=== PATIENT | female | born 1940 | race Caucasian/White ===

== ENCOUNTER → 2016-07-24 | Outpatient (CLI) | payer OTHER, MEDICARE ==
[~2016-07-24] MED LIST: ANT25 PO; PROM25TA PO
--- NOTE | 2016-07-25 12:40 | MAMMOGRAPHY REPORT ---
BILATERAL DIGITAL SCREENING MAMMOGRAM WITH CAD: 07/24/2016 CLINICAL HISTORY: Routine screening. Patient has no complaints. TECHNIQUE: Bilateral CC and MLO views were obtained. Current study was also evaluated with a Comput er Aided Detection (CAD) system. COMPARISON: Comparison is made to exams dated: 07/20/2015 mammogram, 07/14/2013 mammogram, 07/15/2014 mammogram, 06/29/2011 mammogram, and 06/14/2010 mammogram - [facility]. BREAST COMPOSITION: The tissue of both breasts is almost entirely fatty. FINDINGS: There are scattered benign coarse and rodlike, probable secretory calcifications througho ut the breasts. Stable nodularity within the anterior right breast. No new suspicious mass, sohail ectural distortion or cluster of microcalcifications is seen. IMPRESSION: ACR BI-RADS CATEGORY 1: NEGATIVE There is no mammographic evidence of malignancy. A 1 year screening mammogram is recommended. The p atient will receive written notification of the results. Approximately 10% of breast cancers are not detected with mammography. A negative mammographic repor t should not delay biopsy if a clinically suggestive mass is present. Vanessa Frank M.D. ay/:07/24/2016 15:03:44 Multi Spindle Operator: Harleen Cota, [facility] letter sent: Normal 1/2 BI-RADS Code: ACR BI-RADS Category 1: Negative
== END | disposition home or self-care (01) ==
LOC: C.MAMM 10:05
PROVIDERS: ATTEND Internal Medicine
DX: Z12.31 Encounter for screening mammogram for malignant neoplasm of breast (principal)

== ENCOUNTER → 2016-11-01 | Outpatient (CLI) | payer OTHER, MEDICARE ==
[2016-11-01 17:33] LABS: HEMATOCRIT 42.5 % (37-47); MEAN CELL VOLUME 91.8 fL (80-100); MEAN CORPUSCULAR HEMOGLOBIN 29.4 pg (25-34); MEAN PLATELET VOLUME 10.4 fL (7.4-10.4); PLATELET COUNT 262 K/uL (130-400); RED BLOOD COUNT 4.63 M/uL (4.2-5.4); WHITE BLOOD COUNT 7.35 K/uL (4.8-10.8)
[2016-11-01 19:39] LABS: ALT/SGPT 26 U/L (12-78); AST/SGOT 18 U/L (15-37); BLOOD UREA NITROGEN 24 mg/dl (7-18); BUN/CREATININE RATIO 25.3 (10-20); CALCIUM 9.1 mg/dl (8.5-10.1); CARBON DIOXIDE 32 mmol/L (21-32); CHLORIDE 108 mmol/L (98-107); CREATININE 0.94 mg/dl (0.60-1.20); GLUCOSE 92 mg/dl (70-99); POTASSIUM 4.2 mmol/L (3.5-5.1); SODIUM 142 mmol/L (136-145)
[2016-11-01 19:42] LABS: ALKALINE PHOSPHATASE 80 U/L (45-117); CHOLESTEROL 127 mg/dl (0-200); CHOLESTEROL/HDL RATIO 2.8; HDL CHOLESTEROL 45 mg/dl; LDL CHOLESTEROL CALCULATED 65 mg/dl; TRIGLYCERIDES 83 mg/dl (0-150); VERY LOW DENSITY LIPOPROT CALC 17 mg/dl
== END | disposition home or self-care (01) ==
LOC: C.LABBFT 12:42
PROVIDERS: ATTEND Internal Medicine
DX: I10 Essential (primary) hypertension (principal); E78.5 Hyperlipidemia, unspecified

== ENCOUNTER → 2016-11-27 | Outpatient (CLI) | payer OTHER, MEDICARE | END | disposition home or self-care (01) | LOC: C.MAMM 14:10 | PROVIDERS: ATTEND Physician Assistant Medical | DX: M85.851 Other specified disorders of bone density and structure, right thigh (principal); M85.852 Other specified disorders of bone density and structure, left thigh ==

== ENCOUNTER → 2016-12-14 | Outpatient (CLI) | payer OTHER, MEDICARE | END | disposition home or self-care (01) | LOC: C.LABBFT 10:55 | PROVIDERS: ATTEND Physician Assistant Medical | DX: M85.80 Other specified disorders of bone density and structure, unspecified site (principal) ==

== ENCOUNTER → 2017-02-13 | Outpatient (CLI) | payer OTHER, MEDICARE | END | disposition home or self-care (01) | LOC: C.LABBFT 11:51 | PROVIDERS: ATTEND Physician Assistant Medical | DX: E55.9 Vitamin D deficiency, unspecified (principal) ==

== ENCOUNTER → 2017-07-25 | Outpatient (CLI) | payer OTHER, MEDICARE ==
--- NOTE | 2017-07-25 15:31 | MAMMOGRAPHY REPORT ---
BILATERAL DIGITAL SCREENING MAMMOGRAM TOMOSYNTHESIS WITH CAD: 07/25/2017 CLINICAL HISTORY: Routine screening. Patient has no complaints. Patient reported intermittent dimpl ing of the left areola that differs with different positioning. TECHNIQUE: Breast tomosynthesis in addition to standard 2D mammography was performed. Current study was also evaluated with a Computer Aided Detection (CAD) system. COMPARISON: Comparison is made to exams dated: 07/24/2016 mammogram, 07/20/2015 mammogram, 07/15/2014 ma mmogram, 07/14/2013 mammogram, 07/11/2012 mammogram, and 06/29/2011 mammogram - [facility]. BREAST COMPOSITION: The tissue of both breasts is almost entirely fatty. FINDINGS: There is stable nodularity bilaterally, and scattered benign-appearing rim calcifications a nd microcalcifications in each breast. No suspicious mass, architectural distortion or cluster of martinez spicious microcalcifications is seen. No suspicious abnormality is seen in the subareolar or periare olar left breast to explain the intermittent dimpling of the left areola. No focal skin thickening i s appreciated. IMPRESSION: ACR BI-RADS CATEGORY 1: NEGATIVE 1. There is no mammographic evidence of malignancy. A 1 year screening mammogram is recommended. 2. Clinical follow-up is also recommended for the reported intermittent dimpling of the left areola. The patient will receive written notification of the results. Approximately 10% of breast cancers are not detected with mammography. A negative mammographic report should not delay biopsy if a clinically suggestive mass is present. Vanessa Frank M.D. ay/:07/25/2017 10:42:49 Lead Neurodiagnostic Technologist: Lexus ALBRECHT(Florian)(Jennie), [facility] letter sent: Normal 1/2 BI-RADS Code: ACR BI-RADS Category 1: Negative
== END | disposition home or self-care (01) ==
LOC: C.MAMM 10:10
PROVIDERS: ATTEND Internal Medicine
DX: Z12.31 Encounter for screening mammogram for malignant neoplasm of breast (principal); N64.59 Other signs and symptoms in breast

== ENCOUNTER → 2017-11-26 | Outpatient (CLI) | payer OTHER, MEDICARE ==
[2017-11-26 16:57] LABS: BASO % 0.5 %; BASO ABS # 0.03 K/uL (0-0.2); EOS % 2.1 %; EOS ABS # 0.13 K/uL (0-0.5); HEMATOCRIT 38.4 % (37-47); HEMOGLOBIN 13.1 g/dL (12.0-16.0); IG# 0.03 K/uL (0.00-0.02); LYMPH % 24.4 %; LYMPH ABS # 1.55 K/uL (1.2-3.4); MEAN CELL VOLUME 89.9 fL (80-100); MEAN CORPUSCULAR HEMOGLOBIN 30.7 pg (25-34); MEAN CORPUSCULAR HGB CONC 34.1 g/dl (32-36); MEAN PLATELET VOLUME 10.3 fL (7.4-10.4); MONO % 4.7 %; NEUT % 67.8 %; PLATELET COUNT 209 K/uL (130-400); RED CELL DISTRIBUTION WIDTH CV 13.1 % (11.5-14.5); RED CELL DISTRIBUTION WIDTH SD 42.9 fL (36.4-46.3); WHITE BLOOD COUNT 6.34 K/uL (4.8-10.8)
[2017-11-26 17:45] LABS: ALBUMIN 3.7 gm/dl (3.4-5.0); ALT/SGPT 27 U/L (12-78); BLOOD UREA NITROGEN 19 mg/dl (7-18); CARBON DIOXIDE 29 mmol/L (21-32); CHOLESTEROL 126 mg/dl (0-200); CREATININE 1.18 mg/dl (0.60-1.20); GLUCOSE 111 mg/dl (70-99); SODIUM 142 mmol/L (136-145); TOTAL PROTEIN 7.6 gm/dl (6.4-8.2)
[2017-11-26 17:51] LABS: ALKALINE PHOSPHATASE 72 U/L (45-117); AST/SGOT 18 U/L (15-37); LDL CHOLESTEROL CALCULATED 31 mg/dl
== END | disposition home or self-care (01) ==
LOC: C.LABBFT 14:29
PROVIDERS: ATTEND Physician Assistant Medical
DX: E55.9 Vitamin D deficiency, unspecified (principal); I10 Essential (primary) hypertension

== ENCOUNTER → 2018-02-20 | Day surgery (SDC) | payer OTHER, MEDICARE ==
[2018-02-11 11:44] VITALS: Ht 162.6 cm; Wt 83.2 kg
[~2018-02-20] VITALS: Ht 162.6 cm; Wt 83.2 kg
[~2018-02-20] MED LIST changes: +500ML BSS 0.3ML EPI 1:1000PF IRRIG ONE; +ACETAMINOPHEN 325 MG TAB PO PRN; +AMVISC PLUS 0.8ML SYRINGE INT OCU ONE; -ANT25 PO; +ATROPINE SULFATE 0.1 MG/ML 5ML SYR IV PRN; +AcetaZOLAMIDE 250 MG TAB PO SCH; +BETAXOLOL HCL 0.25% OP SUSP PER DROP CHARGE OPL SCH; +BRIMONIDINE TART 0.2% OP SOLN PER DROP CHARGE ONE; +BSS FLUSH ONE; +CALC-354 PO; +ENDOCOAT 0.85ML SYRINGE INT OCU ONE; +ERGO500037 PO; +EpHEDrine SULFATE INJ 50 MG/ML AMP IV PRN; +EpINEphrine INJ 1MG/ML AMP 1 MG/ML AMP ONE; +LACTATED RINGER'S 1000ML 500 ML IV SCH; +LIDOCAINE 4% OP SOLN DROP CHARGE ONE; +LIDOCAINE 4% OP SOLN DROP CHARGE OPL SCH; +LIDOCAINE HCL 1% MPF 2 ML VIAL ONE; +LISI-725 PO; +MIDAZOLAM HCL 1 MG/ML 2ML VIAL ONE; +MIRA1TAB3 PO; +MIX: 4ML BSS 1ML EPI 1:1000 PF INSTIL ONE; +MOXIFLOXACIN OPH SOLN PER DROP CHARGE ONE; +OCUCOAT 1 ML SOLN IO ONE; +POVIDONE-IODINE OP SOLN 30 ML BTL ONE; -PROM25TA PO; +PROPARACAINE 0.5% OP SOLN PER DROP CHARGE OPL SCH; +SIMV40TA2 PO; +TOBRAMYCIN/DEXAMETHASONE OPH OINT PER APPLN CHARGE ONE
--- NOTE | 2018-02-20 06:55 | History & Physical Bridge - SC ---
H&P Re-Evaluation Bridge Note: I have examined the patient, reviewed the History & Physical and in the interval since the performance of the History & Physical I have noted the following changes of clinical significance: No changes noted
[2018-02-20] MEDS: PHENYLEPHRINE HCL 2.5% OP SOLN PER DROP CHARGE OPL SCH ×2 (07:16→07:28)
[2018-02-20] MEDS: TROPICAMIDE 1% OP SOLN PER DROP CHARGE OPL SCH ×2 (07:18→07:29)
[2018-02-20] MEDS: CYCLOPENTOLATE HCL 1% OP SOLN PER DROP CHARGE OPL SCH ×2 (07:19→07:30)
[2018-02-20] MEDS: MOXIFLOXACIN OPH SOLN PER DROP CHARGE OPL SCH ×2 (07:20→07:31)
--- NOTE | 2018-02-20 08:00 | [facility] Operative Report ---
Operative Report Date of Service Feb 20, 2018. Operative Report 1. PREOPERATIVE DIAGNOSIS: Senile nuclear cataract, left eye. 2. POSTOPERATIVE DIAGNOSIS: Senile nuclear cataract, left eye. 3. PROCEDURE: Phacoemulsification of left cataract with posterior chamber lens implant, type [employer]ch [employer], model MX60E, power +22.0 diopters. ANESTHESIA: Local standby. SURGEON: Dr. Lovelace. COMPLICATIONS: None. OPERATING TIME: 10 minutes. 4. OPERATION AND FINDINGS: DESCRIPTION OF PROCEDURE: The left pupil was dilated. The anesthetic was administered using a topical technique. The left eye was prepped and draped. A speculum was placed. A clear corneal incision was formed. The chamber was filled with Amvisc Plus and Endocoat. Epinephrine solution was used. A paracentesis was placed. A capsulorrhexis was performed. The nucleus was hydrodissected. The lens was removed with phacoemulsification. Time was 3.39 seconds. The aspiration unit was used to remove the cortex. The capsule was filled with Amvisc Plus. The lens implant was folded and placed into the capsule. The incision was hydrated. The Amvisc was aspirated. The wound was secure. The chamber was deep. The pupil was round. Brimonidine, TobraDex ointment and Vigamox solution were placed. The speculum was removed. The patient was returned to the Recovery Room in stable condition. I attest to the content of the Intraoperative Record and any orders documented therein. Any exceptions are noted below. The scribe's documentation has been prepared in my presence, under my direction and personally reviewed by me in its entirety. I confirm that the note above accurately reflects all work, treatment, procedures, and medical decision making performed by me. I personally scribed for Asael Lovelace M.D. ([email or web address]) on 02/20/18 at 08:00. Electronically submitted by Yakelin Matias ([email or web address]).
--- NOTE | 2018-02-20 08:03 | Discharge Instructions-SurgCtr ---
Discharge Instructions Date of Service Feb 20, 2018. Visit Reason for Visit: Cataract Left Eye Discharge Discharge Diagnosis / Problem: lens implant left eye Discharge Goals Goal(s): Improve function Activity Recommendations Activity Limitations: resume your previous activity Lifting Limitations: no more than 10 pounds Exercise/Sports Limitations: gradually increase as tolerated May Resume Sexual Activity: when tolerated Shower/Bathe: tomorrow Driving or Machine Use: resume 1 day after discharge Anesthesia . Post Anesthesia Instructions: If you have had General Anesthesia or IV Sedation: * Do not drive today. * Resume driving when surgeon permits. * Do not make important decisions or sign legal documents today. * Call surgeon for: 1. Temperature elevations greater than 101 degrees F. 2. Uncontrollable pain. 3. Excessive bleeding. 4. Persistent nausea and vomiting. 5. Medication intolerance (nausea, vomiting or rash). * For nausea and vomiting use only clear liquids such as: tea, soda, bouillon until nausea subsides, then gradually increase diet as tolerated. * If you have any concerns or questions, call your surgeon's office. If physician is unavailable and it is an emergency, call 911 or go to the nearest emergency room. . Instructions / Follow-Up Instructions / Follow-Up ACTIVITY RECOMMENDATIONS: * Light activities. * Mild irritation and blurred vision are common for the first few days. * You may walk outside, read, watch television. * Redness around the white part of the eye is common. MEDICATIONS: Resume previous medications unless instructed otherwise by your surgeon. * Take white Diamox (Acetazolamide) tablet at 1 pm today. Start all eye drops at 1 pm today: * Eye drops (today and tomorrow): Prednisone - one drop in operative eye every 3 hours while awake Ofloxacin - one drop in operative eye every 3 hours while awake SPECIAL CARE INSTRUCTIONS: * Tape plastic shield over eye to sleep at night. Call your doctor at with any concerns or problems. FOLLOW UP VISIT: Follow-up with Dr Lovelace at [facility] as scheduled. Diet Recommendations Home Diet: no limitations Procedures Procedures Performed: Left Cataract Phacoemulsification With Intraocular Lens Implant Pending Studies Studies pending at discharge: no Medical Emergencies . Who to Call and When: Medical Emergencies: If at any time you feel your situation is an emergency, please call 911 immediately. . Non-Emergent Contact Non-Emergency issues call your: Computer Recycling Worker Call Non-Emergent contact if: your pain is not controlled [phone] . . "Provider Documentation" section prepared by Asael Lovelace. .
[2018-02-20 08:08] VITALS: TEMP 36
--- NOTE | 2018-02-20 08:22 | Anesthesiology Progress Note ---
Anesthesia Post Op Note Date & Time Feb 20, 2018 at 08:23 Vital Signs Pain Intensity: 0 Vital Signs Past 12 Hours Date Time Temp Pulse Resp B/P (MAP) Pulse Ox O2 Delivery O2 Flow Rate FiO2 02/20/18 08:08 36.0 55 16 155/75 (101) 96 Room Air 02/20/18 07:00 36.5 57 18 76/ (25) 95 Room Air Notes Mental Status: alert / awake / arousable, participated in evaluation Nausea / Vomiting: adequately controlled Pain: adequately controlled Airway Patency, RR, SpO2: stable & adequate BP & HR: stable & adequate Hydration State: stable & adequate Anesthetic Complications: no major complications apparent
[2018-02-20 08:25] VITALS: BP 157/68; PULSE 59; O2SAT 98
== END | disposition home or self-care (01) ==
LOC: X.SURG 06:42
PROVIDERS: ATTEND Specialist
DX: H25.12 Age-related nuclear cataract, left eye (principal); I10 Essential (primary) hypertension; E78.00 Pure hypercholesterolemia, unspecified; E66.9 Obesity, unspecified; E78.5 Hyperlipidemia, unspecified

== ENCOUNTER 2020-02-24 13:41 | Inpatient (IN) ==
[2020-02-24] MEDS ORDERED: cefTRIAXone SODIUM 2,000 MG/70 ML BAG IV STA (14:07)
[2020-02-24] MEDS ORDERED: CEFEPIME 20 ML IV ONE (14:30)
[2020-02-24 14:50] LABS: Basophils # (auto) 0.01 K/uL (0-0.2); Basophils % (auto) 0.1 %; Hematocrit (blood only) 34.4 % (37-47); Hemoglobin 11.6 g/dL (12.0-16.0); Immature Granulocytes # (auto) 0.01 K/uL (0.00-0.02); Immature Granulocytes % (auto) 0.1 %; Lymphocytes # (auto) 0.43 K/uL (1.2-3.4); Mean Corpuscular Hemoglobin 30.4 pg (25-34); Mean Corpuscular Hgb Conc 33.7 g/dL (32-36); Mean Corpuscular Volume 90.3 fL (80-100); Mean Platelet Volume 10.2 fL (7.4-10.4); Monocytes # (auto) 0.35 K/uL (0.11-0.59); Neutrophils # (auto) 7.87 K/uL (1.4-6.5); Neutrophils % (auto) 90.8 %; Platelet Count 141 K/uL (130-400); RDW Coefficient of Variation 13.1 % (11.5-14.5); RDW Standard Deviation 43.2 fL (36.4-46.3); Red Blood Count 3.81 M/uL (4.2-5.4); White Blood Count 8.67 K/uL (4.8-10.8)
[2020-02-24 15:02] LABS: INR 1.1 (0.9-1.1); Partial Thromboplastin Time 28.2 Seconds (21.0-31.0); Prothrombin Time 11.7 Seconds (9.0-12.0)
[2020-02-24 15:07] LABS: Albumin Level 3.1 gm/dl (3.4-5.0); BUN Creatinine Ratio 19.9 (10-20); Calcium 8.8 mg/dl (8.5-10.1); Creatinine Clr Calc Pharmacy 39.1 ml/min; Est GFR (African American) 48.1; Est GFR (Non-African American) 41.5; Potassium 3.8 mmol/L (3.5-5.1)
[2020-02-24 15:09] LABS: Bilirubin,Total 0.5 mg/dl (0.2-1); Globulin 3.2 gm/dl (2.5-4.0); Total Protein 6.3 gm/dl (6.4-8.2)
--- NOTE | 2020-02-24 16:40 | History & Physical Report ---
Date of Service February 24, 2020 Assessment & Plan (1) Bacteremia due to Gram-negative bacteria: This is the likely cause of her illness that started on 02/23/20. Source - suspect the urine given her abnormal u/a on 02/23/20, urinary frequency, etc. She has quickly improved clinically in just 24 hours following a dose of IV rocephin administered yesterday. She is afebrile and hemodynamically stable. Gall bladder noted to be normal on CT yesterday thus a biliary source for her bacteremia is highly unlikely. CXR on 02/22 did not show pneumonia. Skin exam today is normal and free of cellulitis. Plan - * cefepime IV - deescalate her antibiotics once the pathogen is identified and sensitivities have returned. Repeat blood cx's were dispatched from the ER this afternoon; follow those as well. * will need 14 days of IV/PO antibiotics from date of first set of negative cultures. * follow 02/23/20 urine culture. * IV fluids tonight; repeat BMP am. I doubt the +IgG for lyme is the cause of her illness. COVID-19 has been sent but this should not cause gram negative bacteremia. [id number], since her COVID-19 test is pending, will need to isolate until final result has returned. (2) Acute UTI: suspected. see above in "bacteremia." (3) Positive Lyme disease serology: IgG is positive for Lyme. IgM is negative. Uncertain if this is false positive or true infection. Would simply await the Western Blot before starting doxycycline; low suspicion for Lyme at this time. (4) COVID-19 virus test result unknown: Sent on 02/23/20. Test still pending. Place in airborne isolation as PUI until result has returned. My suspicion for COVID-19, however, is low at this time. (5) Hypertension: Cont NINI (6) Hypercholesteremia: Cont statin (7) Chronic kidney disease, stage 3a: CrCl baseline appears to be 30s repeat BMP am (8) Abnormal EKG: EKG with marked ischemic changes inferiorly and laterally. +family h/o CAD in her mother. She had an episode of chest discomfort yesterday relieved by belching. This was BEFORE coming to the ER last night. Troponin was negative last evening. Will obtain echo to evaluate wall motion. (9) DVT prophylaxis: lovenox 30mg daily IVF x [address] on telemetry in isolation History of Present Illness Chief Complaint: bacteremia Primary Care Provider: Devin Ortez MD 79yo female with history of HTN who had presented to our ED last night with rigors/chills, headache, pain across the upper back, fatigue/weakness, fever of about 100 degrees, and body aches "all over". Came to [facility] ER - had urine/blood cx's drawn, CT abd/pelvis, and COVID-19 testing. D/c home after receiving dose of IV rocephin. No nausea but did have emesis today after she took her oral antibiotics this am. No foul-smelling urine. No dysuria. But did note the urine was "dark" yesterday/today and that she was having frequency of urination yesterday. Over the last few weeks she denies any GI symptoms following meals. Today she feels "much better." No cough, congestion, sore throat, loss of taste or smell, or recent travel. Was called today about 1230pm and was told that all of her blood cultures were positive for bacteria. Thus, she presented back to the ER for re-evaluation. Allergies Allergy/AdvReac Type Severity Reaction Status Date / Time Penicillins Allergy Unknown Unverified 02/24/20 15:38 Home Medications Home Medications Medication Instructions Recorded Confirmed Type ergocalciferol (vitamin D2) 1,250 See Rx Instructions .ROUTE 07/18/19 02/24/20 Rx mcg (50,000 unit) capsule .COMPLEX #12 capsule simvastatin 40 mg tablet 40 mg PO HS #30 tab 07/18/19 02/24/20 Rx lisinopril 20 mg PO QAM 02/23/20 02/24/20 History cefdinir 300 mg PO BID 10 Days #20 cap 02/24/20 02/24/20 Rx doxycycline hyclate 100 mg PO .ON HOLD 02/24/20 02/24/20 History ondansetron HCl [Zofran] 4 mg PO Q6H PRN #6 tab 02/24/20 02/24/20 Rx Past Med/Surg History Medical History Hypercholesteremia (Chronic) Hypertension Menopause (Inactive) Osteopenia Prolapsed bladder Vitamin D deficiency Surgical History History of colonoscopy (~07/29/09) History of dilation and curettage History of tooth extraction Family History Sister Malignant melanoma Mother Hypertension Diabetes Cardiac disorder from acute NE age 64 Father Lung cancer age 78 Tobacco use Brother Kidney stone Brother Aortic aneurysm Sister Cancer Denies family history of Colon cancer Breast cancer Social History Smoking Status: Never smoker Hx Alcohol Use: No Hx Substance Use: No Preferred Language: American Communication Ability: Effective Hearing Ability: Normal Beliefs That Will Affect Care: None marital status: Current Living Situation: Alone current occupational status: retired 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; 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 [employer] How many Children do You have: 2 How many Children do You have Comment: sons other: lives in [place] Feels Safe at Home: Yes Safety Concerns: Feels Safe At This Time caffeine: Yes Seatbelt Use: always Sunscreen Use: Yes Review of Systems Constitutional: + fever, + chills, + fatigue, + malaise, + weakness and + anorexia Eyes: no worsening vision Ear, Nose, Mouth, Throat: no nasal discharge and no sore throat Respiratory: no cough and no dyspnea Cardiovascular: + chest pain (had burping then the pain resolved; this occurred on 02/23/20 ); no chest pain with activity, no dyspnea on exertion and no edema Gastrointestinal: + belching, + nausea and + vomiting; no abdominal pain and no diarrhea/loose stools Genitourinary: + urinary frequency; no dysuria "dark" urine yesterday Musculoskeletal: + back pain (just yesterday ), + joint pain and + myalgia Integumentary: no rash Neurologic: no loss of sensation Psychiatric: no depression Endocrine: no diabetes Hematologic / Lymphatic: no easy bleeding and no easy bruising Physical Exam Constitutional: well developed and well nourished; no acute distress, not ill appearing and no altered mental status Eyes: + anicteric sclerae and PERRL ENMT: external ear and nose normal, oropharynx normal Neck: trachea midline, no thyromegaly Respiratory: normal respiratory effort, lungs clear to auscultation Cardiovascular: Rate/Rhythm: regular rate and regular rhythm Heart Sounds: normal S1 and normal S2; no murmur Vessels: posterior tibial pulses present and dorsalis pedis pulses present; no JVD Extremities: no edema Gastrointestinal (Abdomen): normal bowel sounds, soft, nontender, no hepatosplenomegaly Musculoskeletal: no cyanosis or clubbing, extremities motor strength 5/5 Skin: no rashes, warm and dry Neurologic: deep tendon reflexes 2+ bilaterally and moves all extremities; no focal motor deficits Psychiatric: A+Ox3, euthymic affect Lymphatic: no cervical lymphadenopathy Results & Data Results & Data ([facility]) Vital Signs (Past 12 Hours) Vital Signs Temp Pulse Pulse Resp BP BP Pulse Ox 02/24/20 15:05 18 96 02/24/20 15:04 55 L 18 134/58 L 02/24/20 13:49 36.8 C 60 18 136/63 95 Laboratory Results Laboratory Results - last 24 hr 02/24/20 02/24/20 02/24/20 14:37 14:37 14:37 WBC 8.67 RBC 3.81 L Hgb 11.6 L Hct 34.4 L MCV 90.3 MCH 30.4 MCHC 33.7 RDW Std Deviation 43.2 RDW Coeff of Nura 13.1 Plt Count 141 MPV 10.2 Immature Gran % (Auto) 0.1 Neut % (Auto) 90.8 Lymph % (Auto) 5.0 Ware % (Auto) 4.0 Eos % (Auto) 0.0 Baso % (Auto) 0.1 Neut # (Auto) 7.87 H Lymph # (Auto) 0.43 L Ware # (Auto) 0.35 Eos # (Auto) 0.00 Baso # (Auto) 0.01 Immature Gran # (Auto) 0.01 PT 11.7 INR 1.1 APTT 28.2 PTT Ratio 1.0 Sodium 139 Potassium 3.8 Chloride 109 H Carbon Dioxide 25 Anion Gap 5.0 BUN 24 H Creatinine 1.22 H Est Cr Clr Drug Dosing 39.1 Est GFR ( Amer) 48.1 Est GFR (Non-Af Amer) 41.5 BUN/Creatinine Ratio 19.9 Glucose 118 H Lactate Calcium 8.8 Magnesium 2.0 Total Bilirubin 0.5 D AST 23 ALT 28 Alkaline Phosphatase 61 Total Protein 6.3 L Albumin 3.1 L Globulin 3.2 Albumin/Globulin Ratio 1.0 Procalcitonin 02/24/20 02/24/20 14:37 14:37 WBC RBC Hgb Hct MCV MCH MCHC RDW Std Deviation RDW Coeff of Nura Plt Count MPV Immature Gran % (Auto) Neut % (Auto) Lymph % (Auto) Ware % (Auto) Eos % (Auto) Baso % (Auto) Neut # (Auto) Lymph # (Auto) Ware # (Auto) Eos # (Auto) Baso # (Auto) Immature Gran # (Auto) PT INR APTT PTT Ratio Sodium Potassium Chloride Carbon Dioxide Anion Gap BUN Creatinine Est Cr Clr Drug Dosing Est GFR ( Amer) Est GFR (Non-Af Amer) BUN/Creatinine Ratio Glucose Lactate 1.6 Calcium Magnesium Total Bilirubin AST ALT Alkaline Phosphatase Total Protein Albumin Globulin Albumin/Globulin Ratio Procalcitonin 7.[address] abd/pelvis w/ IV contrast (02/23/20) -- FINDINGS: The lung bases are clear. The liver, spleen, gallbladder, pancreas, k idneys, and adrenal glands are within normal limits. No bowel wall thickening or obstruction. The pelvic organs are unremarkable. No suspicious lytic or blastic osseous lesions. Normal appendix. Moderate degenerative changes lumbar spine. Several small hepatic cysts. IMPRESSION: No acute process in the abdomen or pelvis. EKG - my reading - NSR, ST segment depression V3-V6; ST segment depression II, III, AVF --anterolateral ST depression was scantly present on prior EKGs years ago COVID-19 testing from 02/22 pending Lyme IgM neg Lyme IgG positive blood cultures 02/22 ---- 10/17 bottles + for GNR Code Status & VTE Plan Code Status DNR/DNI VTE Prophylaxis Plan VTE Prophylaxis will be ordered: Yes PG Care Time/CCT Total # of Minutes Spent Total Time Spent with Patient: Total time spent is greater than 50% in coordination of care (as documented) at patient's floor/unit and/or counseling patient: Coding Level of Care Code 50969 Initial Inpt Care Lvl 3 Diagnoses Bacteremia due to Gram-negative bacteria R78.81 Acute UTI N39.0 Positive Lyme disease serology R76.8 COVID-19 virus test result unknown Z20.828 Hypertension I10 Hypertension type: essential hypertension Hypercholesteremia E78.00 Chronic kidney disease, stage 3a N18.3 Abnormal EKG R94.31 DVT prophylaxis Z29.9 (1) Hypertension Hypertension type: essential hypertension Qualified Code(s): I10 - Essential (primary) hypertension
--- NOTE | 2020-02-24 17:25 | Emergency Department Note ---
Impression & Plan Bacteremia due to Gram-negative bacteria ED Provider Note NAME: SALVATORE PERLA AGE: 79 SEX: F : 1940 ARRIVES VIA: Walk-In INFORMANT: Patient, ED PROVIDER(S): Carlos Bright MD Chief Complaint: Referred to emergency department HPI: She does present as a referral to the emergency department after the patient did have positive growth of gram-negative bacilli in her blood cultures. The patient had been seen last days evening for presumed urinary tract infection started on cephalosporins. The patient states that yesterday around 8 AM she had developed some vague chest and back discomfort with associated weakness and fatigue. The patient denies any tick bites or rashes. The patient did have some mild nausea but without vomiting. The patient had decreased p.o. intake over the course of the day and then presented to the emergency department. Patient had a presumed urinary tract infection and was started on antibiotics. The patient states she felt improved today. She did take one-time dose of her by mouth antibiotic this morning. Patient is also been taking Tylenol every 6 hours. This she states that this is improved her feelings of fatigue and weakness. Patient also did have a COVID swab completed yesterday and was currently pending at the time of her return. ROS: See HPI for pertinent positives and negatives. A total of 10 systems were reviewed and otherwise negative. Past medical history: See below Surgical history: See below Social history: See below Physical Exam: GENERAL: Wearing a mask. NAD, non-toxic. EYE EXAM: Normal conjunctiva. PERRL, no anisocoria and EOM's grossly intact w/o pain. NECK: Supple, no nuchal rigidity, no adenopathy, non-tender. No signs of menin gismus. LUNGS: Clear to auscultation. Normal chest wall mechanics. HEART: NSR, no MRG. ABDOMEN: Abdomen soft, non-tender, normo-active bowel sounds, no masses, no rebound or guarding. BACK: No CVA TTP. SKIN: No rashes and no bruising. UPPER EXTREMITIES: Upper extremities are grossly normal. LOWER EXTREMITIES: Grossly normal, no edema. NEURO EXAM: A&O x3, cranial nerves II-XII grossly intact, normal speech, moves all 4 extremities on command w/o issue. Differential diagnoses: Sepsis, UTI, pneumonia, metabolic, electrolyte abnormalities, cardiac sources, intracerebral event, toxicologic, neurologic, as well as other pathologies. Course: Patient was seen and evaluated the bedside. Full history physical exam was performed. EKG: Sinus bradycardia, rate of 54, normal intervals, normal axis, T wave inversion mild depression inferiorly and laterally. No significant change from February 23, 2020. Imaging Studies: Radiology results as stated below per my review in the radiologist's int erpretation: Cardiac monitoring: An order was placed for continuous cardiac monitoring. The monitor shows a rate of 56 with sinus bradycardia rhythm. MDM: Patient does present as a return due to concern for gram-negative bacteremia. The patient states that she does feel improved after her antibiotics that she received yesterday. Patient is nontoxic in appearance. The patient was ordered additional IV fluids and antibiotics along with blood work and EKG. EKG is unchanged from yesterday. Patient has a normal white count which is an improvement from yesterday. Mild anemia is noted with a normal platelet count. Kidney function is a virtual baseline with creatinine 1.2 today. Patient does have an elevated procalcitonin 7.8 but this is also improved compared to prior. Patient does not complain of any chest pains or weakness today. I did speak the on-call hospitalist given the patient's poor to gram-negative bacteremia. Patient was admitted to the [facility] physician group hospitalist service by Dr. Whatley. Past Med/Surg History Medical History Hypercholesteremia (Chronic) Hypertension Menopause (Inactive) Osteopenia Prolapsed bladder Vitamin D deficiency Surgical History History of colonoscopy (~07/29/09) History of dilation and curettage History of tooth extraction Family History Sister Malignant melanoma Mother Hypertension Diabetes Cardiac disorder from acute [place] age 64 Father Lung cancer age 78 Tobacco use Brother Kidney stone Brother Aortic aneurysm Sister Cancer Denies family history of Colon cancer Breast cancer Social History Smoking Status: Never smoker Hx Alcohol Use: No Hx Substance Use: No Communication Ability: Effective Hearing Ability: Normal marital status: Current Living Situation: Alone current occupational status: 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; 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 [employer] How many Children do You have: 2 How many Children do You have Comment: sons other: lives in [place] Feels Safe at Home: Yes caffeine: Yes Seatbelt Use: always Sunscreen Use: Yes Allergies Allergies Allergy/AdvReac Type Severity Reaction Status Date / Time Penicillins Allergy Unknown Unverified 02/24/20 15:38 Home Meds Home Medications Medication Instructions Recorded Confirmed lisinopril 20 mg PO QAM 02/23/20 02/24/20 doxycycline hyclate 100 mg PO .ON HOLD 02/24/20 02/24/20 Previous Rx's Medication Instructions Recorded ergocalciferol (vitamin D2) 1,250 See Rx Instructions .ROUTE 07/18/19 mcg (50,000 unit) capsule .COMPLEX #12 capsule simvastatin 40 mg tablet 40 mg PO HS #30 tab 07/18/19 cefdinir 300 mg PO BID 10 Days #20 cap 02/24/20 ondansetron HCl [Zofran] 4 mg PO Q6H PRN #6 tab 02/24/20 Results & Data (ED) Vital Signs Vital Signs - 24 hr 02/24/20 13:49 02/24/20 15:04 02/24/20 15:05 Temperature 36.8 C Temperature Source Oral Pulse Rate 60 Pulse Rate [Apical] 55 L Respiratory Rate 18 18 18 Respiratory Effort / Characteristics Non-Labored Respiratory Depth Respiratory Pattern Blood Pressure 136/63 Blood Pressure [Left Arm] 134/58 L Blood Pressure Mean 87 Blood Pressure Mean [Left Arm] 83 Blood Pressure Position Sitting Blood Pressure Position [Left Arm] Pulse Oximetry 95 96 Oxygen Delivery Method Room Air Sepsis Recent Fever Within 48 Hours No Sepsis New/Unexplained Change in Mental Status No Sepsis Action Taken by Nursing No Action Required 02/24/20 17:12 Temperature Temperature Source Pulse Rate Pulse Rate [Apical] 56 L Respiratory Rate 20 Respiratory Effort / Characteristics Non-Labored Spontaneous Respiratory Depth Normal Respiratory Pattern Regular Blood Pressure Blood Pressure [Left Arm] 162/67 H Blood Pressure Mean Blood Pressure Mean [Left Arm] 98 Blood Pressure Position Blood Pressure Position [Left Arm] Lying Pulse Oximetry 97 Oxygen Delivery Method Room Air Sepsis Recent Fever Within 48 Hours Sepsis New/Unexplained Change in Mental Status Sepsis Action Taken by [facility] Medications Current Medication List: was personally reviewed by me Laboratory Data Attestation: I reviewed the patient's lab results. Result diagrams: 02/24/20 14:37 02/24/20 14:37 Lab Results 02/24/20 02/24/20 02/24/20 Range/Units 14:37 14:37 14:37 WBC 8.67 (4.8-10.8) K/uL RBC 3.81 L (4.2-5.4) M/uL Hgb 11.6 L (12.0-16.0) g/dL Hct 34.4 L (37-47) % MCV 90.3 (80-100) fL MCH 30.4 (25-34) pg MCHC 33.7 (32-36) g/dL RDW Std Deviation 43.2 (36.4-46.3) fL RDW Coeff of Nura 13.1 (11.5-14.5) % Plt Count 141 (130-400) K/uL MPV 10.2 (7.4-10.4) fL Immature Gran % (Auto) 0.1 % Neut % (Auto) 90.8 % Lymph % (Auto) 5.0 % [place] % (Auto) 4.0 % Eos % (Auto) 0.0 % Baso % (Auto) 0.1 % Neut # (Auto) 7.87 H (1.4-6.5) K/uL Lymph # (Auto) 0.43 L (1.2-3.4) K/uL [place] # (Auto) 0.35 (0.11-0.59) K/uL Eos # (Auto) 0.00 (0-0.5) K/uL Baso # (Auto) 0.01 (0-0.2) K/uL Immature Gran # (Auto) 0.01 (0.00-0.02) K/uL PT 11.7 (9.0-12.0) Seconds INR 1.1 (0.9-1.1) APTT 28.2 (21.0-31.0) Seconds PTT Ratio 1.0 Sodium 139 (136-145) mmol/L Potassium 3.8 (3.5-5.1) mmol/L Chloride 109 H (98-107) mmol/L Carbon Dioxide 25 (21-32) mmol/L Anion Gap 5.0 (3-11) BUN 24 H (7-18) mg/dl Creatinine 1.22 H (0.6-1.2) mg/dl Est Cr Clr Drug Dosing 39.1 ml/min Est GFR ( Amer) 48.1 Est GFR (Non-Af Amer) 41.5 BUN/Creatinine Ratio 19.9 (10-20) Glucose 118 H (70-99) mg/dl Lactate (0.4-2.0) mmol/L Calcium 8.8 (8.5-10.1) mg/dl Magnesium 2.0 (1.8-2.4) mg/dl Total Bilirubin 0.5 D (0.2-1) mg/dl AST 23 (15-37) U/L ALT 28 (12-78) U/L Alkaline Phosphatase 61 (45-117) U/L Total Protein 6.3 L (6.4-8.2) gm/dl Albumin 3.1 L (3.4-5.0) gm/dl Globulin 3.2 (2.5-4.0) gm/dl Albumin/Globulin Ratio 1.0 (0.9-2) Procalcitonin (0-0.5) ng/ml 02/24/20 02/24/20 Range/Units 14:37 14:37 WBC (4.8-10.8) K/uL RBC (4.2-5.4) M/uL Hgb (12.0-16.0) g/dL Hct (37-47) % MCV (80-100) fL MCH (25-34) pg MCHC (32-36) g/dL RDW Std Deviation (36.4-46.3) fL RDW Coeff of Nura (11.5-14.5) % Plt Count (130-400) K/uL MPV (7.4-10.4) fL Immature Gran % (Auto) % Neut % (Auto) % Lymph % (Auto) % [place] % (Auto) % Eos % (Auto) % Baso % (Auto) % Neut # (Auto) (1.4-6.5) K/uL Lymph # (Auto) (1.2-3.4) K/uL [place] # (Auto) (0.11-0.59) K/uL Eos # (Auto) (0-0.5) K/uL Baso # (Auto) (0-0.2) K/uL Immature Gran # (Auto) (0.00-0.02) K/uL PT (9.0-12.0) Seconds INR (0.9-1.1) APTT (21.0-31.0) Seconds PTT Ratio Sodium (136-145) mmol/L Potassium (3.5-5.1) mmol/L Chloride (98-107) mmol/L Carbon Dioxide (21-32) mmol/L Anion Gap (3-11) BUN (7-18) mg/dl Creatinine (0.6-1.2) mg/dl Est Cr Clr Drug Dosing ml/min Est GFR ( Amer) Est GFR (Non-Af Amer) BUN/Creatinine Ratio (10-20) Glucose (70-99) mg/dl Lactate 1.6 (0.4-2.0) mmol/L Calcium (8.5-10.1) mg/dl Magnesium (1.8-2.4) mg/dl Total Bilirubin (0.2-1) mg/dl AST (15-37) U/L ALT (12-78) U/L Alkaline Phosphatase (45-117) U/L Total Protein (6.4-8.2) gm/dl Albumin (3.4-5.0) gm/dl Globulin (2.5-4.0) gm/dl Albumin/Globulin Ratio (0.9-2) Procalcitonin 7.87 H (0-0.5) ng/ml Administered Medications Discontinued Medications Cefepime HCl (Maxipime) 20 mls @ 5 mls/min IV ONE ONE Stop: 02/24/20 14:33 Last Admin: 02/24/20 14:59 Dose: 5 mls/min Documented by: [id number] Discharge Plan Visit Data Chief Complaint: Urinary Symptoms Stated Complaint: UTI SYMPTOMS ED Provider: Carlos Bright Discharge Problem: Bacteremia due to Gram-negative bacteria Forms Stand Alone Forms: [employer] Prescriptions Prescriptions: No Action ergocalciferol (vitamin D2) 50,000 unit capsule See Rx Instructions .ROUTE .COMPLEX Qty: 12 RF: 3 simvastatin 40 mg tablet 40 mg PO HS Qty: 30 RF: 5 lisinopril 20 mg tablet 20 mg PO QAM RF: 0 cefdinir 300 mg capsule 300 mg PO BID 10 Days Qty: 20 RF: 0 ondansetron HCl [Zofran] 4 mg tablet 4 mg PO Q6H PRN (Reason: nausea and vomiting) Qty: 6 RF: 0 doxycycline hyclate 100 mg capsule 100 mg PO .ON HOLD RF: 0
[2020-02-24] MEDS ORDERED: MAGNESIUM HYDROXIDE SUSP 30 ML UDC PO PRN (20:17)
[2020-02-24] MEDS ORDERED: ACETAMINOPHEN 325 MG TAB PO PRN (20:17)
[2020-02-24] MEDS ORDERED: ONDANSETRON INJ 2 MG/ML 2 ML VIAL IV PRN (20:17)
[2020-02-24] MEDS ORDERED: SODIUM CHLORIDE 0.9% 1000ML 1,000 ML IV SCH (20:17)
[2020-02-24] MEDS ORDERED: POLYETHYLENE (MIRALAX) 17 GM PACK PO PRN (20:17)
[2020-02-24] MEDS ORDERED: ALUMINUM/MAGNESIUM SUSP 30 ML UDC PO PRN (20:17)
[2020-02-24] MEDS: SIMVASTATIN 40 MG TAB PO SCH (21:18)
[2020-02-24] MEDS: ENOXAPARIN INJ 30 MG/0.3 ML SYR SQ SCH (21:18)
[2020-02-25] MEDS ORDERED: CEFEPIME 2,000 MG in SYRINGE 7.5 ML IV SCH (03:00)
[2020-02-25] MEDS: lisinopriL 20 MG TAB PO SCH (08:04)
[2020-02-25 08:19] LABS: Calcium 8.4 mg/dl (8.5-10.1); Creatinine Clr Calc Pharmacy 28.3 ml/min; Est GFR (African American) 67.7; Est GFR (Non-African American) 58.4; Potassium 3.9 mmol/L (3.5-5.1)
[2020-02-25] MEDS: ENOXAPARIN INJ 30 MG/0.3 ML SYR SQ SCH (21:02)
[2020-02-25] MEDS: SIMVASTATIN 40 MG TAB PO SCH (21:16)
--- NOTE | 2020-02-25 23:03 | Hospitalist Progress Note ---
Date of Service February 25, 2020 Assessment & Plan (1) Bacteremia due to Gram-negative bacteria: This is the likely cause of her illness that started on 02/23/20. Source - suspect the urine given her abnormal u/a on 02/23/20, urinary frequency, etc. She has quickly improved clinically in just 24 hours following a dose of IV rocephin administered yesterday. She is afebrile and hemodynamically stable. Gall bladder noted to be normal on CT yesterday thus a biliary source for her bacteremia is highly unlikely. CXR on 02/22 did not show pneumonia. Skin exam today is normal and free of cellulitis. Plan - * cefepime IV - deescalate her antibiotics once the pathogen is identified and sensitivities have returned. Repeat blood cx's were dispatched from the ER this afternoon; follow those as well. * will need 14 days of IV/PO antibiotics from date of first set of negative cultures. * follow 02/23/20 urine culture. * IV fluids tonight; repeat BMP am. I doubt the +IgG for lyme is the cause of her illness. COVID-19 has been sent but this should not cause gram negative bacteremia. Hsay-fav-siiy, since her COVID-19 test is pending, will need to isolate until final result has returned. Patient will likely be discharged tomorrow as the bacteremia is likely secondary to the UTI. If bacteria are sensitive to FQ, will place on FQ. (2) Acute UTI: suspected. see above in "bacteremia." (3) Positive Lyme disease serology: IgG is positive for Lyme. IgM is negative. Uncertain if this is false positive or true infection. Would simply await the Western Blot before starting doxycycline; low suspicion for Lyme at this time. (4) COVID-19 virus test result unknown: Sent on 02/23/20. Test still pending. Place in airborne isolation as PUI until result has returned. My suspicion for COVID-19, however, is low at this time. (5) Hypertension: Cont NINI (6) Hypercholesteremia: Cont statin (7) Chronic kidney disease, stage 3a: CrCl baseline appears to be 30s repeat BMP am (8) Abnormal EKG: EKG with marked ischemic changes inferiorly and laterally. +family h/o CAD in her mother. She had an episode of chest discomfort yesterday relieved by belching. This was BEFORE coming to the ER last night. Troponin was negative last evening. Will obtain echo to evaluate wall motion. (9) DVT prophylaxis: lovenox 30mg daily IVF x [address] on telemetry in isolation (10) Obesity (BMI 30.0-34.9): recommend lifestyle changes Admission and Anticipated Discharge Date Admission Date: February 24, 2020 Subjective 79 yo female reports feeling well today. He has no new complaints at this time. Review of Systems Constitutional: + fatigue; no fever, no chills, no malaise, no weakness and no anorexia Cardiovascular: no chest pain (had burping then the pain resolved; this occurred on 02/23/20 ), no chest pain with activity, no dyspnea on exertion and no edema Gastrointestinal: no abdominal pain, no belching, no nausea, no vomiting and no diarrhea/loose stools Genitourinary: + urinary frequency; no dysuria "dark" urine yesterday Musculoskeletal: no back pain (just yesterday ), no joint pain and no myalgia Endocrine: no diabetes Physical Exam Physical Exam: Constitutional: well developed and well nourished; no acute distress, not ill appearing and no altered mental status Eyes: + anicteric sclerae and PERRL ENMT: external ear and nose normal, oropharynx normal Neck: trachea midline, no thyromegaly Respiratory: normal respiratory effort, lungs clear to auscultation Cardiovascular: Rate/Rhythm: regular rate and regular rhythm Heart Sounds: normal S1 and normal S2; no murmur Vessels: posterior tibial pulses present and dorsalis pedis pulses present; no JVD Extremities: no edema Gastrointestinal (Abdomen): normal bowel sounds, soft, nontender, no hepatosplenomegaly Musculoskeletal: no cyanosis or clubbing, extremities motor strength 5/5 Skin: no rashes, warm and dry Neurologic: deep tendon reflexes 2+ bilaterally and moves all extremities; no focal motor deficits Psychiatric: A+Ox3, euthymic affect Lymphatic: no cervical lymphadenopathy Results & Data Results & Data ([facility]) Vital Signs (Past 12 Hours) Vital Signs Temp Pulse Resp BP Pulse Ox 02/25/20 21:09 37.1 C 56 L 18 177/66 H 95 02/25/20 12:04 36.8 C 50 L 16 156/78 H 97 PG Care Time/CCT Total # of Minutes Spent Total Time Spent with Patient: Total time spent is greater than 50% in coordination of care (as documented) at patient's floor/unit and/or counseling patient: Coding Level of Care Code 00092 Subseq Hosp Care Lvl 2 Diagnoses Bacteremia due to Gram-negative bacteria R78.81 Acute UTI N39.0 Positive Lyme disease serology R76.8 COVID-19 virus test result unknown Z20.828 Hypertension I10 Hypertension type: essential hypertension Hypercholesteremia E78.00 Chronic kidney disease, stage 3a N18.3 Abnormal EKG R94.31 DVT prophylaxis Z29.9 Obesity (BMI 30.0-34.9) E66.9 (1) Hypertension Hypertension type: essential hypertension Qualified Code(s): I10 - Essential (primary) hypertension
[2020-02-26] MEDS ORDERED: CEFEPIME 2,000 MG in SYRINGE 7.5 ML IV SCH ×2 (04:00→16:00)
--- NOTE | 2020-02-26 06:00 | Electrocardiogram Report ---
Test Reason : Blood Pressure : / mmHG Vent. Rate : 054 BPM Atrial Rate : 054 BPM P-R Int : 170 ms QRS Dur : 098 ms QT Int : 458 ms P-R-T Axes : 065 042 -83 degrees QTc Int : 434 ms Sinus bradycardia Abnormal ECG When compared with ECG of 23-FEB-2020 22:38, No significant change was found Confirmed by Damon Key ([id number]) on 02/26/2020 5:59:33 AM Referred By: REFERRED SELF Confirmed By:Damon Key
[2020-02-26] MEDS: lisinopriL 20 MG TAB PO SCH (08:52)
[2020-02-26 09:39] LABS: Hematocrit (blood only) 34.8 % (37-47); Hemoglobin 11.6 g/dL (12.0-16.0); Mean Corpuscular Hemoglobin 30.1 pg (25-34); Mean Corpuscular Hgb Conc 33.3 g/dL (32-36); Mean Corpuscular Volume 90.4 fL (80-100); Mean Platelet Volume 10.2 fL (7.4-10.4); Platelet Count 136 K/uL (130-400); RDW Coefficient of Variation 13.1 % (11.5-14.5); RDW Standard Deviation 43.3 fL (36.4-46.3); Red Blood Count 3.85 M/uL (4.2-5.4)
[2020-02-26 10:12] LABS: BUN Creatinine Ratio 15.6 (10-20); Calcium 9.2 mg/dl (8.5-10.1); Creatinine Clr Calc Pharmacy 55.4 ml/min; Est GFR (African American) 74.5; Est GFR (Non-African American) 64.3; Potassium 3.8 mmol/L (3.5-5.1)
--- NOTE | 2020-03-04 06:30 | Discharge Summary ---
Date of Service February 26, 2020 Admission HPI Per Admitting Provider 79yo female with history of HTN who had presented to our ED last night with rigors/chills, headache, pain across the upper back, fatigue/weakness, fever of about 100 degrees, and body aches "all over". Came to [facility] ER - had urine/blood cx's drawn, CT abd/pelvis, and COVID-19 testing. D/c home after receiving dose of IV rocephin. No nausea but did have emesis today after she took her oral antibiotics this am. No foul-smelling urine. No dysuria. But did note the urine was "dark" yesterday/today and that she was having frequency of urination yesterday. Over the last few weeks she denies any GI symptoms following meals. Today she feels "much better." No cough, congestion, sore throat, loss of taste or smell, or recent travel. Was called today about 1230pm and was told that all of her blood cultures were positive for bacteria. Thus, she presented back to the ER for re-evaluation. Principal Diagnosis bacteremia Discharge Exam Constitutional: well developed and well nourished; no acute distress, not ill appearing and no altered mental status Eyes: + anicteric sclerae and PERRL ENMT: external ear and nose normal, oropharynx normal Neck: trachea midline, no thyromegaly Respiratory: normal respiratory effort, lungs clear to auscultation Cardiovascular: Rate/Rhythm: regular rate and regular rhythm Heart Sounds: normal S1 and normal S2; no murmur Vessels: posterior tibial pulses present and dorsalis pedis pulses present; no JVD Extremities: no edema Gastrointestinal (Abdomen): normal bowel sounds, soft, nontender, no hepatosplenomegaly Musculoskeletal: no cyanosis or clubbing, extremities motor strength 5/5 Skin: no rashes, warm and dry Neurologic: deep tendon reflexes 2+ bilaterally and moves all extremities; no focal motor deficits Psychiatric: A+Ox3, euthymic affect Lymphatic: no cervical lymphadenopathy Discharge Data Allergies Allergy/AdvReac Type Severity Reaction Status Date / Time Penicillins Allergy Unknown Unverified 02/24/20 15:38 Consultations 02/24/20 16:32 ED Decision to Admit Stat Hospital Course (1) Bacteremia due to Gram-negative bacteria: This is the likely cause of her illness that started on 02/23/20. Source - suspect the urine given her abnormal u/a on 02/23/20, urinary frequency, etc. She has quickly improved clinically in just 24 hours following a dose of IV rocephin administered yesterday. She is afebrile and hemodynamically stable. Gall bladder noted to be normal on CT yesterday thus a biliary source for her bacteremia is highly unlikely. CXR on 02/22 did not show pneumonia. Skin exam today is normal and free of cellulitis. Plan - * cefepime IV - deescalate her antibiotics once the pathogen is identified and sensitivities have returned. Repeat blood cx's were dispatched from the ER this afternoon; follow those as well. * will need 14 days of IV/PO antibiotics from date of first set of negative cultures. * follow 02/23/20 urine culture. * IV fluids tonight; repeat BMP am. I doubt the +IgG for lyme is the cause of her illness. COVID-19 has been sent but this should not cause gram negative bacteremia. Covid is negative. Patient will likely be discharged tomorrow as the bacteremia is likely secondary to the UTI. will discharge on doxycycline for lymes. Patient also treated with cefdinir for 12 more days. (2) Acute UTI: suspected. see above in "bacteremia." (3) Positive Lyme disease serology: IgG is positive for Lyme. IgM is negative. Uncertain if this is false positive or true infection. Would simply await the Western Blot before starting doxycycline; low suspicion for Lyme at this time. (4) COVID-19 virus test result unknown: Sent on 02/23/20. Test still pending. Place in airborne isolation as PUI until result has returned. My suspicion for COVID-19, however, is low at this time. (5) Hypertension: Cont NINI (6) Hypercholesteremia: Cont statin (7) Chronic kidney disease, stage 3a: CrCl baseline appears to be 30s (8) Abnormal EKG: EKG with marked ischemic changes inferiorly and laterally. +family h/o CAD in her mother. She had an episode of chest discomfort yesterday relieved by belching. This was BEFORE coming to the ER last night. Troponin was negative last evening. Will obtain echo to evaluate wall motion. (9) DVT prophylaxis: lovenox 30mg daily (10) Obesity (BMI 30.0-34.9): recommend lifestyle changes Total Time Total Time Spent Total Time Spent (In Minutes): 32 Discharge Plan Discharge Items Patient Disposition: Home - Self-Care Reason For Visit: BACTEREMIA Discharge Diagnosis: Complicated UTI/ lymes Activity: Resume your previous activity Non-emergency contact: Primary Care Provider Call non-emergency contact if: you have any medication questions Follow-up/Referrals: Devin Ortez III, MD [Primary Care Provider] - 03/04/20 11:00 am Diet: Regular Addtl Attending Provider Instructions: You were found to have a bacterial infection which was in your urine and blood stream. you will continue antibiotics : cefdinir for 12 more days. You will also be on doxycycline for 21 days for lyme as you had positive antibodies. You may need an ultrasound of your heart. Will defer further treatment to your primary care doctor. Pending Studies at Discharge: No Stand-Alone Forms: My [facility] [employer], Smoking Cessation Medications and DC Order Prescriptions: Continued ergocalciferol (vitamin D2) 50,000 unit capsule See Rx Instructions .ROUTE .COMPLEX Qty: 12 RF: 3 simvastatin 40 mg tablet 40 mg PO HS Qty: 30 RF: 5 lisinopril 20 mg tablet 20 mg PO QAM RF: 0 ondansetron HCl [Zofran] 4 mg tablet 4 mg PO Q6H PRN (Reason: nausea and vomiting) Qty: 6 RF: 0 cefdinir 300 mg capsule 300 mg PO BID 12 Days Qty: 24 RF: 0 Changed doxycycline hyclate 100 mg capsule 100 mg PO BID Qty: 42 RF: 0 Discharge Orders: Discharge Order (Routine); Ordered 02/26/20 Ordered By: Jose Mg Admission Data Admit Date/Time: 02/24/20 17:32 Attending Provider: Jose Mg Admit Provider: Toño Whatley Primary Care Provider: Devin Ortez III Other Providers: Toño Whatley Other Interventions: Discharge Summary Assessment (RN) Last Done: 02/26/20 11:45 Coding Level of Care Code D/C Day Management >30 mins Diagnoses Bacteremia due to Gram-negative bacteria R78.81 Acute UTI N39.0 Positive Lyme disease serology R76.8 COVID-19 virus test result unknown Z20.828 Hypertension I10 Hypertension type: essential hypertension Hypercholesteremia E78.00 Chronic kidney disease, stage 3a N18.3 Abnormal EKG R94.31 DVT prophylaxis Z29.9 Obesity (BMI 30.0-34.9) E66.9 Time Spent (min) 32
== END 2020-02-26 13:21 | disposition home or self-care (01) | DRG 872 ==
LOC: ED 13:41 → SUATTDRO 17:32 → 2S 17:32

== ENCOUNTER 2021-09-25 14:23 | Inpatient (IN) ==
[2021-09-25] MEDS ORDERED: LABETALOL HCL IV 5 MG/ML 20ML IV STA ×2 (14:48→15:52)
[2021-09-25] MEDS ORDERED: LABETALOL HCL IV 5 MG/ML 20ML IV ONE (14:55)
[2021-09-25 15:14] LABS: Basophils # (auto) 0.03 K/uL (0-0.2); Basophils % (auto) 0.5 %; Eosinophils # (auto) 0.07 K/uL (0-0.5); Eosinophils % (auto) 1.3 %; Hematocrit (blood only) 35.4 % (37-47); Immature Granulocytes # (auto) 0.01 K/uL (0.00-0.02); Immature Granulocytes % (auto) 0.2 %; Lymphocytes # (auto) 1.42 K/uL (1.2-3.4); Lymphocytes % (auto) 25.8 %; Mean Corpuscular Hemoglobin 30.9 pg (25-34); Mean Corpuscular Hgb Conc 33.9 g/dL (32-36); Mean Corpuscular Volume 91.2 fL (80-100); Mean Platelet Volume 10.2 fL (7.4-10.4); Monocytes # (auto) 0.39 K/uL (0.11-0.59); Monocytes % (auto) 7.1 %; Neutrophils # (auto) 3.58 K/uL (1.4-6.5); Neutrophils % (auto) 65.1 %; Platelet Count 221 K/uL (130-400); RDW Coefficient of Variation 13.3 % (11.5-14.5); RDW Standard Deviation 43.9 fL (36.4-46.3); Red Blood Count 3.88 M/uL (4.2-5.4)
--- NOTE | 2021-09-25 15:21 | CT Scan Report ---
CT head/brain wo con CLINICAL HISTORY: 81 years-old Female with left visual deficits. Acute left-sided visual field defec ts. TECHNIQUE: Multiple axial CT images of the head were obtained without contrast. A dose lowering tech nique was utilized adhering to the principles of ALARA. CT DOSE: 614.27 mGy.cm COMPARISON: CT head 09/20/2008 FINDINGS: No acute intracranial hemorrhage, midline shift, intracranial mass, hydrocephalus, territorial ischem ia or abnormal extra-axial collection. 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 Senescent calcifications of the right lentiform nucleus. Cerebral vascular calcifications. The calvarium is intact. Prior bilateral lens repair. Unremarkable soft tissues. The paranasal sinuse s, mastoid air cells, and middle ear cavities are clear. IMPRESSION: No acute intracranial abnormality. ACT 112: Negative or not required by law. The above report was generated using voice recognition software. It may contain grammatical, syntax o r spelling errors. Electronically signed by: Victor Hugo Zhang M.D. 09/25/2021 3:20 PM
[2021-09-25 15:35] LABS: Anion Gap 6 (3-11); BUN Creatinine Ratio 22.1 (10-20); Blood Urea Nitrogen 19 mg/dl (6-23); Calcium 9.9 mg/dl (8.5-10.1); Carbon Dioxide 27 mmol/L (21-32); Chloride 108 mmol/L (98-107); Creatinine Clr Calc Pharmacy 53.8 ml/min; Est GFR (African American) 72.4 ml/min; Est GFR (Non-African American) 62.5 ml/min; Glucose 88 mg/dl (70-99(Fasting)); Sodium 141 mmol/L (136-145); Troponin I < 0.03 ng/ml (0-0.04)
--- NOTE | 2021-09-25 15:48 | Emergency Department Note ---
Impression & Plan Hypertensive emergency, Vision blurring ED Provider Note Name: SALVATORE PERLA Age: 81 Sex: F Arrives Via: Walk-In Informant: Patient, son ED Provider: Reza Ashley MD Chief Complaint: Visual disturbance Impression: As per impressions above Medical Decision Making: Pleasant 81-year-old female arrives for evaluation of mild headache associated with left visual field disturbance. Patient notes several days of periodic left visual field waving and distortion. This is associated with a headache and on arrival she is noted to be significantly hypertensive with systolic blood pressure greater than 220. On examination patient without any neurologic defici ts and denies any visual field deficits at this time. Given ongoing symptoms for several days and no acute findings on current examination stroke alert is not indicated and she would not be a thrombolytic candidate. Patient taken to CT which is fortunately unremarkable for Noncon. The rest of her examination is unremarkable as well. She received several rounds of IV antihypertensive for blood pressure started to trend back down. Given his significant hypertension which is brand-new for the patient the visual issues as well as possible other neurologic symptoms last few days I do feel that it would be appropriate to hospitalize her for further stroke work-up. I discussed this with the patient and her son and they are both comfortable with this plan. At this time she has no loss of vision that I can ascertain and I feel that ruling out stroke outweighs outpatient ophthalmological examination at this time. I discussed the case with hospitalist and they note they will evaluate the patient to determine further plan of care and management. Prior Medical Record and Triage/Nursing Notes reviewed by Me Additional history obtained from chart Differentials: Stroke, TIA, Retinal detachment, vitreous detachment, retinal bleed, retinal artery/vein occlusion, migraine headache, ICH, SAH, infection, tumor, Benign hypertension, hypertensive emergency, cardiovascular pathology, toxicologic, pheochromocytoma, electrolyte abnormality, renal disease, endorgan damage, as well as other pathologies. Vital Signs: reviewed and remarkable for htn Interventions: Labetalol 10 mg IV, hydralazine 10 mg IV Labs:Reviewed and remarkable for no significant abnormalities Imaging:CT of the head negative for acute findings EKG:Per My Interpretation: Indication Stroke like symptoms: Sinus Brigida 52 bpm, qtc 407. No Ectopy. No Ischemia. Compared to EKG 02/24/[address] depressions/T wave inversions have resolved Consults:Dr Brice SKINNER Hospitalist Plan: Disposition:Hospitalization. Condition: Good History of Present Illness:81-year-old female arrives for evaluation of visual disc function. She notes that for the last 3 weeks she feels like her left vision just has not been right. At times she notes what looks like a click and other times waviness through her left visual toney. She states is very clearly in her left eye and not in her right eye. She has a mild associated frontal headache and at times a posterior headache. She has no neck pain. She has had some paresthesias in her left face. She is adamant she has no arm weakness, paresthesias, ataxia, slurred speech, facial weakness, other symptoms. She has had no fevers, chills, stiff neck. She had no recent rashes, she has had no recent falls, trauma, injury. Patient denies any nausea, vomiting, chest pain, shortness breath, abdominal pain, other symptoms. Patient denies any history of similar symptoms. She does get periodic headaches but does not have visual issues with them. Patient does have a history of bilateral cataract repair little years ago. Patient denies any vertiginous symptoms. Patient denies any medications prior to arrival. ROS: See above HPI for pertinent positives & negatives. A total of 10 systems reviewed and were otherwise negative. Past Medical History:See Below Past Surgical History:See Below Family History:See Below Social History:See Below Home Medications:See Below Allergies:PNC Vitals:Blood Pressure: 227/89, Pulse 66, RR 18, T 36.2C, O2 97% on RA Physical Exam: GENERAL: Patient is mildly anxious appearing and in mild distress. HEAD: AT/NC EYES: No scleral icterus, unremarkable pupils. ENT: Mucous membranes moist, no nasal congestion. NECK: No masses appreciated, nomeningismus, trachea is midline. RESPIRATORY: No dyspnea. Clear to auscultation and equal bilaterally. No wheeze, no rhonchi. CARDIOVASCULAR: Regular rate and rhythm.No murmurs, rubs, gallops appreciated. GASTROINTESTINAL: Abdomen soft, non-tender, no peritonitis.Bowel sounds positive.No masses appreciated. BACK: No midline tenderness, no CVA tenderness EXTREMITIES: Normal motion all extremities, no cyanosis, no edema. NEUROLOGIC: Alert and oriented, no acute motor or sensory deficits, no focal weakness, cranial nerves grossly intact. SKIN: No rash, no jaundice, no diaphoresis. PSYCH: Appropriate GCS: 15 ED Course: Times/Reassessments: Stable comfortable in no distress. Blood pressure is gradually trending down Reza Ashley MD Past Med/Surg History Medical History Chronic kidney disease, stage 3a Hypercholesteremia Hypertension Menopause Osteopenia Prolapsed bladder Urge incontinence Vitamin D deficiency Surgical History History of colonoscopy (~07/29/09) History of dilation and curettage History of tooth extraction Family History Sister Malignant melanoma Mother Hypertension Diabetes Cardiac disorder from acute ID age 64 Father Lung cancer age 78 Tobacco use Brother Kidney stone Brother Aortic aneurysm Sister Cancer Denies family history of Colon cancer Breast cancer Social History Smoking Status: Never smoker Hx Alcohol Use: No Hx Substance Use: No Preferred Language: Belarusian Communication Ability: Effective Hearing Ability: Normal [employer] Installer Required: No Beliefs That Will Affect Care: None marital status: Current Living Situation: Alone current occupational status: 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 Home Meds Home Medications Medication Instructions Recorded Confirmed triamcinolone acetonide 0.1 % 1 applic TOPICAL BID PRN 08/31/21 09/27/21 topical cream ergocalciferol (vitamin D2) 1,250 1,250 mcg PO WK 09/25/21 09/27/21 mcg (50,000 unit) capsule Previous Rx's Medication Instructions Recorded simvastatin 40 mg tablet 40 mg PO HS #30 tab 11/03/20 lisinopril 20 mg tablet 20 mg PO DAILY #90 tab 04/25/21 amlodipine 5 mg tablet (Norvasc) 5 mg PO QAM 30 Days #30 tab 09/26/21 aspirin 81 mg tablet,delayed 81 mg PO QAM 30 Days #30 tab 09/26/21 release Results & Data (ED) Vital Signs Vital Signs - 24 hr 09/25/21 14:25 Temperature 36.2 C L Temperature Source Temporal Artery Scan Pulse Rate 66 Respiratory Rate 18 Respiratory Effort / Characteristics Non-Labored Spontaneous Respiratory Depth Normal Respiratory Pattern Regular Blood Pressure 227/89 H Blood Pressure Mean 135 Blood Pressure Position Sitting Pulse Oximetry 97 Oxygen Delivery Method Room Air Sepsis Recent Fever Within 48 Hours No Sepsis New/Unexplained Change in Mental Status No Sepsis Action Taken by Nursing No Action Required Laboratory Data Result diagrams: 09/26/21 06:32 09/26/21 06:32 Lab Results 09/25/21 09/25/21 09/25/21 Range/Units 15:00 15:00 16:58 WBC 5.50 (4.8-10.8) K/uL RBC 3.88 L (4.2-5.4) M/uL Hgb 12.0 (12.0-16.0) g/dL Hct 35.4 L (37-47) % MCV 91.2 (80-100) fL MCH 30.9 (25-34) pg MCHC 33.9 (32-36) g/dL RDW Std Deviation 43.9 (36.4-46.3) fL RDW Coeff of Nura 13.3 (11.5-14.5) % Plt Count 221 (130-400) K/uL MPV 10.2 (7.4-10.4) fL Immature Gran % (Auto) 0.2 % Neut % (Auto) 65.1 % Lymph % (Auto) 25.8 % [place] % (Auto) 7.1 % Eos % (Auto) 1.3 % Baso % (Auto) 0.5 % Neut # (Auto) 3.58 (1.4-6.5) K/uL Lymph # (Auto) 1.42 (1.2-3.4) K/uL [place] # (Auto) 0.39 (0.11-0.59) K/uL Eos # (Auto) 0.07 (0-0.5) K/uL Baso # (Auto) 0.03 (0-0.2) K/uL Immature Gran # (Auto) 0.01 (0.00-0.02) K/uL Sodium 141 (136-145) mmol/L Potassium TNP Chloride 108 H (98-107) mmol/L Carbon Dioxide 27 (21-32) mmol/L Anion Gap 6 (3-11) BUN 19 (6-23) mg/dl Creatinine 0.86 (0.6-1.2) mg/dl Est Cr Clr Drug Dosing 53.8 ml/min Est GFR ( Amer) 72.4 ml/min Est GFR (Non-Af Amer) 62.5 ml/min BUN/Creatinine Ratio 22.1 H (10-20) Glucose 88 (70-99(Fasting)) mg/dl Calcium 9.9 (8.5-10.1) mg/dl Troponin I < 0.03 (0-0.04) ng/ml SARS-CoV-2, RNA, NAAT NEGATIVE (NEGATIVE) 09/25/21 Range/Units 17:03 WBC (4.8-10.8) K/uL RBC (4.2-5.4) M/uL Hgb (12.0-16.0) g/dL Hct (37-47) % MCV (80-100) fL MCH (25-34) pg MCHC (32-36) g/dL RDW Std Deviation (36.4-46.3) fL RDW Coeff of Nura (11.5-14.5) % Plt Count (130-400) K/uL MPV (7.4-10.4) fL Immature Gran % (Auto) % Neut % (Auto) % Lymph % (Auto) % [place] % (Auto) % Eos % (Auto) % Baso % (Auto) % Neut # (Auto) (1.4-6.5) K/uL Lymph # (Auto) (1.2-3.4) K/uL [place] # (Auto) (0.11-0.59) K/uL Eos # (Auto) (0-0.5) K/uL Baso # (Auto) (0-0.2) K/uL Immature Gran # (Auto) (0.00-0.02) K/uL Sodium (136-145) mmol/L Potassium 3.8 Chloride (98-107) mmol/L Carbon Dioxide (21-32) mmol/L Anion Gap (3-11) BUN (6-23) mg/dl Creatinine (0.6-1.2) mg/dl Est Cr Clr Drug Dosing ml/min Est GFR ( Amer) ml/min Est GFR (Non-Af Amer) ml/min BUN/Creatinine Ratio (10-20) Glucose (70-99(Fasting)) mg/dl Calcium (8.5-10.1) mg/dl Troponin I (0-0.04) ng/ml SARS-CoV-2, RNA, NAAT (NEGATIVE) Administered Medications Discontinued Medications Acetaminophen (Acetaminophen 325 Mg Tab) 650 mg PO Q4H PRN PRN Reason: Pain or Fever Stop: 10/25/21 19:56 Last Admin: 09/26/21 07:47 Dose: 650 mg Documented by: [id number] Amlodipine Besylate (Amlodipine Besylate 5 Mg Tab) [facility] [place]: 10/26/21 07:49 Last Admin: 09/26/21 08:43 Dose: 5 mg Documented by: [id number] Aspirin (Aspirin 81 Mg Ectab) [facility] [place]: 10/26/21 08:59 Last Admin: 09/26/21 07:47 Dose: 81 mg Documented by: [id number] Enoxaparin Sodium (Enoxaparin Inj 40 Mg/0.4 Ml Syr) 40 mg SQ Q24H [facility] Stop: 10/25/21 20:59 Last Admin: 09/25/21 21:37 Dose: 40 mg Documented by: [id number] Hydralazine HCl (Hydralazine Hcl 20 Mg/Ml Vial) 10 mg IV NOW STA Stop: 09/25/21 16:28 Last Admin: 09/25/21 16:36 Dose: 10 mg Documented by: [id number] Ioversol (Optiray 320 125ml) 120 ml IV ONCE ONE Stop: 09/25/21 17:19 Last Admin: 09/25/21 17:18 Dose: 120 ml Documented by: [id number] Labetalol HCl (Labetalol Hcl Iv 5 Mg/Ml 20ml) 10 mg IV NOW STA Stop: 09/25/21 14:49 Last Admin: 09/25/21 15:41 Dose: 10 mg Documented by: [id number] Cosigned by: [id number] Labetalol HCl (Labetalol Hcl Iv 5 Mg/Ml 20ml) Confirm Administered Dose 5 mg IV .STK-MED ONE Stop: 09/25/21 14:56 Last Admin: 09/25/21 15:40 Dose: Not Given Documented by: [id number] Labetalol HCl (Labetalol Hcl Iv 5 Mg/Ml 20ml) 10 mg IV NOW STA Stop: 09/25/21 15:53 Last Admin: 09/25/21 16:36 Dose: Not Given Documented by: [id number] Lisinopril (Lisinopril 20 Mg Tab) 20 mg PO DAILY GUILLAUME Stop: 10/26/21 08:59 Last Admin: 09/26/21 07:47 Dose: 20 mg Documented by: [id number] Simvastatin (Simvastatin 40 Mg Tab) 40 mg PO HS GUILLAUME Stop: 10/25/21 20:59 Last Admin: 09/25/21 21:37 Dose: 40 mg Documented by: [id number] Imaging Data Radiologist's Impression: Head CT 09/25/21 14:47 CT head/brain wo con CLINICAL HISTORY: 81 years-old Female with left visual deficits. Acute left- sided visual field defects. TECHNIQUE: Multiple axial CT images of the head were obtained without contrast. A dose lowering technique was utilized adhering to the principles of ALARA. CT DOSE: 614.27 mGy.cm COMPARISON: CT head 09/20/2008 FINDINGS: No acute intracranial hemorrhage, midline shift, intracranial mass, hydrocephalus, territorial ischemia or abnormal extra-axial collection. White matter hypodensities suggest chronic microvascular ischemic disease, progressed from prior. Senescent calcifications of the right lentiform nucleus. Cerebral vascular calcifications. The calvarium is intact. Prior bilateral lens repair. Unremarkable soft tissues. The paranasal sinuses, mastoid air cells, and middle ear cavities are clear. IMPRESSION: No acute intracranial abnormality. ACT 112: Negative or not required by law. The above report was generated using voice recognition software. It may contain grammatical, syntax or spelling errors. Electronically signed by: Victor Hugo Zhang M.D. 09/25/2021 3:20 PM Discharge Plan Visit Data Chief Complaint: Stroke/CVA Symptoms Stated Complaint: VISION PROBLEMS/HEADACHE ED Provider: Reza Ashley Discharge Problem: Hypertensive emergency, Vision blurring Patient Disposition: Admitted As Inpatient Discharge Instructions Interventions: ED Discharge Assessment Last Done: 09/25/21 18:37
[2021-09-25] MEDS ORDERED: hydrALAZINE HCL 20 MG/ML VIAL IV STA (16:27)
[2021-09-25] MEDS ORDERED: OPTIRAY 320 125ml IV ONE (17:18)
--- NOTE | 2021-09-25 17:33 | History & Physical Report ---
Date of Service September 25, 2021 Assessment & Plan (1) Hypertensive emergency: Plan: Originally controlled with minimal medication now presents with hypertensive emergency with neurological symptoms - HSUSEIN and vision changes resolved with decreasing her BP- follow for rebound HTN - Goal would be to keep her SBP 160s-140s - Will follow HTN overnight with PRN dosing of Hydralazine - Additional agents in morning with trending and dose amounts of above - If she is requiring frequent dosing and/or ineffective she may need Cardene drip overnight (2) Vision blurring: Plan: CTA of the head and neck performed- - HTN as below - Consider dilated eye exam (3) Headache: Plan: Secondary to # 1 - Control BP - Tylenol PRN for pain (4) Hypertension: Plan: Previously controlled - As above (5) Hypercholesteremia: Plan: Lipid panel in the morning - Adjust statin dosing appropriately (6) Osteopenia: Plan: No acute needs- hold Vitamin D History of Present Illness Primary Care Provider: Kay Abbasi PA-C 81 YOF with past medical history of: Osteopenia, HLD, HTN, bilateral lens repairs, cataracts. Patient comes in today for evaluation of her vision and was subsequently found to have elevated SBP > 200 with normal DBP. Patient states that over the past week, she noticed that her vision has had a "wave of curtains flowing" or seeing things like a rope on the couch that wasn't there. She also denies that she has pain in her eyes. This has also been associated with a frontal bilateral headache dull and 1/10, which today radiated to the back of her head. She denies that her vision complaints involve any actual vision loss, or black spots, or tunnel vision. She states that she may have some left facial tingling that has gone on and off for the past few days. She denies any other neurological complaints. Her BP is normally well controlled and she is on Lisinopril 20mg PO daily. She reports going to give blood last week and had her BP checked there and it was normal. In the EMD she had head CT scan performed, routine labs to include Troponin I, and ECG. Her laboratory work does not show any organ involvement with her elevated BP. Her CT non con was normal. Hospitalist service was consulted for admission- request CTA of the head and neck. She had an eye exam performed in 03/05 that was negative for any retinopathy and IOPs reported within normal limits. Her blood pressure origi berna did not respond to Labetalol 10mg IV x2- she was then given dose of 10mg Hydralazine prior to examination- her BP has responded and is now currently 160/80s, she feels that her headache that she was having in the frontal part of her head is gone, and her vision waves have also improved. She does note some "buzzing" in her ears. NO other focal deficits noted and both eyes have red- reflex noted. Patient will be admitted for following of her HTN overnight, and evaluation with CTA. Patient COVID Test on admission is: NEGATIVE Allergies Allergy/AdvReac Type Severity Reaction Status Date / Time Penicillins Allergy Unknown HAPPENED Verified 09/25/21 16:03 50 YEARS AGO. Home Medications Medication Instructions Recorded Confirmed Type simvastatin 40 mg tablet 40 mg PO HS #30 tab 11/03/20 09/25/21 Rx lisinopril 20 mg tablet 20 mg PO DAILY #90 tab 04/25/21 09/25/21 Rx triamcinolone acetonide 0.1 % 1 applic TOPICAL BID PRN 08/31/21 09/25/21 History topical cream ergocalciferol (vitamin D2) 1,250 1,250 mcg PO WK 09/25/21 09/25/21 History mcg (50,000 unit) capsule Past Med/Surg History Medical History Chronic kidney disease, stage 3a Hypercholesteremia Hypertension Menopause Osteopenia Prolapsed bladder Urge incontinence Vitamin D deficiency Surgical History History of colonoscopy (~07/29/09) History of dilation and curettage History of tooth extraction Family History Sister Malignant melanoma Mother Hypertension Diabetes Cardiac disorder from acute [place] age 64 Father Lung cancer age 78 Tobacco use Brother Kidney stone Brother Aortic aneurysm Sister Cancer Denies family history of Colon cancer Breast cancer Social History Smoking Status: Never smoker Hx Alcohol Use: No Hx Substance Use: No Preferred Language: Mongolian Communication Ability: Effective Hearing Ability: Normal Beliefs That Will Affect Care: None marital status: Current Living Situation: Alone current occupational status: retired 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; 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 [employer] How many Children do You have: 2 How many Children do You have Comment: sons other: lives in [place] Feels Safe at Home: Yes caffeine: Yes Seatbelt Use: always Sunscreen Use: Yes Assistive Devices: None Review of Systems Review of Systems: REVIEW OF SYSTEMS: Constitutional: No fever, sweats or chills Eyes: (+) painless vision changes, NO diplopia ENT: (+) buzzing in ears, Headache, no trouble swallowing Respiratory: No cough, sputum, dyspnea at rest or on exertion Cardiovascular: No chest pain, tightness or palpitations Abdomen: No pain, nausea, vomiting, diarrhea or constipation Musculoskeletal: No joint pain, calf pain, swelling Neurologic: No weakness, numbness/tingling, or balance problems Psychiatric: No anxiety or depression Skin: No rash or itch Physical Exam Physical Exam: PHYSICAL EXAM: General: awake, alert, no apparent distress Head: Previously described headache is resolved at this time, Normocephalic, atraumatic, no neck pain ENT: PERRLA, EOMI, red-reflex present bilaterally, no visual field deficits and peripheral vision is equal bilaterally, no pharyngeal exudate, mucous membranes moist Neuro: AAO x 3, speech clear and appropriate, strength intact bilaterally 5/5, sensation intact and equal all extremities and dermatomes, no pronator drift, no ataxia Chest: equal rise and fall of the chest, no accessory muscle use, no heaves or thrills, Clear to auscultation, on room air, Cardiac: Regular rate and rhythm, telemetry reviewed- NSR, skin warm dry, cap refill <3 seconds, peripheral pulses +2 no JVD, no murmur, no JVD, no edema GI: NABS x 4 quadrants, soft, nontender to palpation, no rebound, guarding or tenderness : Spontaneously voiding, no pain, no CVA tenderness, Extremities: Normal inspection, no peripheral edema or erythema, calfs nontender to palpation Psych: Normal mood and affect Skin: no rash or erythema Results & Data Results & Data ([facility]) Vital Signs (Past 12 Hours) Vital Signs Temp Pulse Resp BP Pulse Ox 09/25/21 16:40 63 17 165/66 H 09/25/21 16:30 55 L 14 200/62 H 09/25/21 16:24 58 L 19 206/69 H 99 09/25/21 16:20 56 L 17 98 09/25/21 16:10 56 L 16 227/82 H 98 09/25/21 16:02 52 L 19 97 09/25/21 15:50 57 L 24 204/66 H 97 09/25/21 15:40 56 L 21 191/67 H 97 09/25/21 15:30 55 L 21 174/67 H 97 09/25/21 15:25 51 L 15 202/58 H 99 09/25/21 15:23 56 L 23 195/71 H 09/25/21 15:22 58 L 13 09/25/21 14:25 36.2 C L 66 18 227/89 H 97 Laboratory Results Abnormal lab results 09/25/21 09/25/21 Range/Units 15:00 15:00 RBC 3.88 L (4.2-5.4) M/uL Hct 35.4 L (37-47) % Chloride 108 H (98-107) mmol/L BUN/Creatinine Ratio 22.1 H (10-20) Diagnostic Findings Head CT 09/25/21 14:47 CT head/brain wo con CLINICAL HISTORY: 81 years-old Female with left visual deficits. Acute left- sided visual field defects. TECHNIQUE: Multiple axial CT images of the head were obtained without contrast. A dose lowering technique was utilized adhering to the principles of ALARA. CT DOSE: 614.27 mGy.cm COMPARISON: CT head 09/20/2008 FINDINGS: No acute intracranial hemorrhage, midline shift, intracranial mass, hydrocephalus, territorial ischemia or abnormal extra-axial collection. White matter hypodensities suggest chronic microvascular ischemic disease, progressed from prior. Senescent calcifications of the right lentiform nucleus. Cerebral vascular calcifications. The calvarium is intact. Prior bilateral lens repair. Unremarkable soft tissues. The paranasal sinuses, mastoid air cells, and middle ear cavities are clear. IMPRESSION: No acute intracranial abnormality. ACT 112: Negative or not required by law. The above report was generated using voice recognition software. It may contain grammatical, syntax or spelling errors. Electronically signed by: Victor Hugo Zhang M.D. 09/25/2021 3:20 PM Head CTA 09/25/21 16:42 CT angio neck with con, CT angio head w con CLINICAL HISTORY: 81 years-old Female with stroke. Acute strokelike symptoms COMPARISON STUDY: Head CT of same day TECHNIQUE: Following the IV administration of 120 mL of Optiray, CT angiogram of the head and neck was performed from the aortic arch to the skull apex. Images are reviewed in the axial, sagittal, and coronal planes. 3-D MIPS images are created and assessed. IV contrast was administered without complication. All measurements were calculated based on NASCET criteria. A dose lowering technique was utilized adhering to the principles of ALARA. CT DOSE: 501.98 mGy.cm FINDINGS: Atherosclerosis of the thoracic aorta. Patency of the innominate and imaged subclavian arteries. The common carotid arteries are patent. Mild atherosclerosis of the carotid bulbs and proximal cervical segments of the internal carotid arteries results in less than 50% stenosis bilaterally. The middle and anterior cerebral arteries are patent. Diminutive left A1 segment is likely developmental. Dominant left vertebral artery. Vertebral arteries, basilar and posterior cerebral arteries appear patent. The cerebral venous sinuses are patent. There is no abnormal intracranial enhancement. The visualized ophthalmic arteries appear unremarkable. Lung apices are clear. There is no pneumothorax. No thyroid nodule. Unremarkable soft tissues of the neck. Prior bilateral lens repair. Streak artifact from dental amalgam hardware. Degenerative changes of the imaged cervical spine. IMPRESSION:Mild atherosclerosis without aneurysm, dissection, high-grade stenosis or arterial occlusion. ACT 112: Negative or not required by law. The above report was generated using voice recognition software. It may contain grammatical, syntax or spelling errors. Electronically signed by: Victor Hugo Zhang M.D. 09/25/2021 5:48 PM Neck CTA 09/25/21 16:42 CT angio neck with con, CT angio head w con CLINICAL HISTORY: 81 years-old Female with stroke. Acute strokelike symptoms COMPARISON STUDY: Head CT of same day TECHNIQUE: Following the IV administration of 120 mL of Optiray, CT angiogram of the head and neck was performed from the aortic arch to the skull apex. Images are reviewed in the axial, sagittal, and coronal planes. 3-D MIPS images are created and assessed. IV contrast was administered without complication. All measurements were calculated based on NASCET criteria. A dose lowering technique was utilized adhering to the principles of ALARA. CT DOSE: 501.98 mGy.cm FINDINGS: Atherosclerosis of the thoracic aorta. Patency of the innominate and imaged subclavian arteries. The common carotid arteries are patent. Mild atherosclerosis of the carotid bulbs and proximal cervical segments of the internal carotid arteries results in less than 50% stenosis bilaterally. The middle and anterior cerebral arteries are patent. Diminutive left A1 segment is likely developmental. Dominant left vertebral artery. Vertebral arteries, basilar and posterior cerebral arteries appear patent. The cerebral venous sinuses are patent. There is no abnormal intracranial enhancement. The visualized ophthalmic arteries appear unremarkable. Lung apices are clear. There is no pneumothorax. No thyroid nodule. Unremarkable soft tissues of the neck. Prior bilateral lens repair. Streak artifact from dental amalgam hardware. Degenerative changes of the imaged cervical spine. IMPRESSION:Mild atherosclerosis without aneurysm, dissection, high-grade stenosis or arterial occlusion. ACT 112: Negative or not required by law. The above report was generated using voice recognition software. It may contain grammatical, syntax or spelling errors. Electronically signed by: Victor Hugo Zhang M.D. 09/25/2021 5:48 PM Medications Administered Home Medications simvastatin 40 mg tablet 40 mg PO HS #30 tab 11/03/20 [Rx Confirmed 09/25/21] lisinopril 20 mg tablet 20 mg PO DAILY #90 tab 04/25/21 [Rx Confirmed 09/25/21] triamcinolone acetonide 0.1 % topical cream 1 applic TOPICAL BID PRN 08/31/21 [History Confirmed 09/25/21] ergocalciferol (vitamin D2) 1,250 mcg (50,000 unit) capsule 1,250 mcg PO WK 09/25/21 [History Confirmed 09/25/21] Discontinued Medications Hydralazine HCl (Hydralazine Hcl 20 Mg/Ml Vial) 10 mg IV NOW STA Stop: 09/25/21 16:28 Last Admin: 09/25/21 16:36 Dose: 10 mg Documented by: [id number] Ioversol (Optiray 320 125ml) 120 ml IV ONCE ONE Stop: 09/25/21 17:19 Last Admin: 09/25/21 17:18 Dose: 120 ml Documented by: [id number] Labetalol HCl (Labetalol Hcl Iv 5 Mg/Ml 20ml) 10 mg IV NOW STA Stop: 09/25/21 14:49 Last Admin: 09/25/21 15:41 Dose: 10 mg Documented by: [id number] Cosigned by: [id number] Labetalol HCl (Labetalol Hcl Iv 5 Mg/Ml 20ml) Confirm Administered Dose 5 mg IV .STK-MED ONE Stop: 09/25/21 14:56 Last Admin: 09/25/21 15:40 Dose: Not Given Documented by: [id number] Labetalol HCl (Labetalol Hcl Iv 5 Mg/Ml 20ml) 10 mg IV NOW STA Stop: 09/25/21 15:53 Last Admin: 09/25/21 16:36 Dose: Not Given Documented by: [id number] ECG Additional Comments: Sinus bradycardia Moderate voltage criteria for LVH, may be normal variant Nonspecific T wave abnormality Abnormal ECG When compared with ECG of 24-FEB-2020 15:01, ST no longer depressed in Lateral leads Nonspecific T wave abnormality has replaced inverted T waves in Inferior leads T wave inversion no longer evident in Anterolateral leads Code Status & VTE Plan Code Status CODE: DNR/DNI VTE: SCDS, Lovenox 40mg sq daily VTE Prophylaxis Plan VTE Prophylaxis will be ordered: Yes Supervising Physician Co-Signing Physician Notes Patient seen and examined, chart reviewed, case discussed with Tima Price and I agree with the assessment and plan except as noted General: A&Ox3. NAD. Cooperative. HEENT: Atraumatic, normocephalic. Visual acuity imparied at baseline, L eye worse than R but grossly intact without field cuts to confrontation. Pulm: CTAB A&P. -wheezes, -rales, -rhonchi. Symmetrical chest rise. No increase work of breathing. No respiratory distress. Cardiac: RRR, -mrg. Radial pulses intact and symmetrical. Abdominal: Nontender, nondistended, soft. BS present. All labs and images reviewed Sx likely due to HTNive emergency. Sx resolved with BP treatment. Continue as above, cardene vs amlodipine if neeed overnight goal BP <160 systolic. Carotid disease <50%, no indications for intervention. +ASA. PG Care Time/CCT Total # of Minutes Spent Total Time Spent with Patient: Total time spent is greater than 50% in coordination of care (as documented) at patient's floor/unit and/or counseling patient: Coding Level of Care Code 17883 Initial Inpt Care Lvl 3 Diagnoses Vision blurring H53.8 Hypertension I10 Hypertension type: essential hypertension Hypercholesteremia E78.00 Osteopenia M85.80 Headache R51 Hypertensive emergency I16.1 (1) Hypertension Hypertension type: essential hypertension Qualified Code(s): I10 - Essential (primary) hypertension
--- NOTE | 2021-09-25 17:49 | CT Scan Report ---
CT angio neck with con, CT angio head w con CLINICAL HISTORY: 81 years-old Female with stroke. Acute strokelike symptoms COMPARISON STUDY: Head CT of same day TECHNIQUE: Following the IV administration of 120 mL of Optiray, CT angiogram of the head and neck wa s performed from the aortic arch to the skull apex. Images are reviewed in the axial, sagittal, and c oronal planes. 3-D MIPS images are created and assessed. IV contrast was administered without complic ation. All measurements were calculated based on NASCET criteria. A dose lowering technique was util ized adhering to the principles of ALARA. CT DOSE: 501.98 mGy.cm FINDINGS: Atherosclerosis of the thoracic aorta. Patency of the innominate and imaged subclavian arteries. The common carotid arteries are patent. Mild atherosclerosis of the carotid bulbs and proximal cervical s egments of the internal carotid arteries results in less than 50% stenosis bilaterally. The middle an d anterior cerebral arteries are patent. Diminutive left A1 segment is likely developmental. Dominant left vertebral artery. Vertebral arteries, basilar and posterior cerebral arteries appear patent. Th e cerebral venous sinuses are patent. There is no abnormal intracranial enhancement. The visualized o phthalmic arteries appear unremarkable. Lung apices are clear. There is no pneumothorax. No thyroid nodule. Unremarkable soft tissues of the neck. Prior bilateral lens repair. Streak artifact from dental amalgam hardware. Degenerative changes of the imaged cervical spine. IMPRESSION:Mild atherosclerosis without aneurysm, dissection, high-grade stenosis or arterial occlusi on. ACT 112: Negative or not required by law. The above report was generated using voice recognition software. It may contain grammatical, syntax o r spelling errors. Electronically signed by: Victor Hugo Zhang M.D. 09/25/2021 5:48 PM
[2021-09-25] MEDS ORDERED: ONDANSETRON INJ 2 MG/ML 2 ML VIAL IV PRN (19:57)
[2021-09-25] MEDS ORDERED: ACETAMINOPHEN 325 MG TAB PO PRN (19:57)
[2021-09-25] MEDS ORDERED: hydrALAZINE HCL 20 MG/ML VIAL IV PRN (19:57)
[2021-09-25] MEDS ORDERED: SIMVASTATIN 40 MG TAB PO SCH (21:00)
[2021-09-25] MEDS ORDERED: ENOXAPARIN INJ 40 MG/0.4 ML SYR SQ SCH (21:00)
--- NOTE | 2021-09-26 05:43 | Electrocardiogram Report ---
Test Reason : Blood Pressure : / mmHG Vent. Rate : 052 BPM Atrial Rate : 052 BPM P-R Int : 178 ms QRS Dur : 094 ms QT Int : 438 ms P-R-T Axes : 053 002 255 degrees QTc Int : 407 ms Sinus bradycardia Moderate voltage criteria for LVH, may be normal variant Nonspecific ST and T wave abnormality Abnormal ECG When compared with ECG of 24-FEB-2020 15:01, ST no longer depressed in Anterolateral leads Nonspecific T wave abnormality has replaced inverted T waves in Inferior leads T wave inversion no longer evident in Anterolateral leads Confirmed by Damon Key ([id number]) on 09/26/2021 5:42:43 AM Referred By: REFERRED SELF Confirmed By:Damon Key
[2021-09-26 06:56] LABS: Basophils # (auto) 0.03 K/uL (0-0.2); Basophils % (auto) 0.6 %; Eosinophils # (auto) 0.06 K/uL (0-0.5); Eosinophils % (auto) 1.2 %; Hematocrit (blood only) 33.4 % (37-47); Hemoglobin 11.1 g/dL (12.0-16.0); Immature Granulocytes # (auto) 0.01 K/uL (0.00-0.02); Immature Granulocytes % (auto) 0.2 %; Lymphocytes # (auto) 1.35 K/uL (1.2-3.4); Lymphocytes % (auto) 26.8 %; Mean Corpuscular Hemoglobin 30.5 pg (25-34); Mean Corpuscular Hgb Conc 33.2 g/dL (32-36); Mean Corpuscular Volume 91.8 fL (80-100); Mean Platelet Volume 10.1 fL (7.4-10.4); Monocytes # (auto) 0.31 K/uL (0.11-0.59); Monocytes % (auto) 6.2 %; Neutrophils # (auto) 3.27 K/uL (1.4-6.5); Platelet Count 197 K/uL (130-400); RDW Coefficient of Variation 13.4 % (11.5-14.5); RDW Standard Deviation 45.1 fL (36.4-46.3); Red Blood Count 3.64 M/uL (4.2-5.4); White Blood Count 5.03 K/uL (4.8-10.8)
[2021-09-26 07:16] LABS: BUN Creatinine Ratio 23.5 (10-20); Calcium 8.6 mg/dl (8.5-10.1); Chol HDL Ratio 2.7 (0-5); Creatinine Clr Calc Pharmacy 56.5 ml/min; Est GFR (African American) 77.8 ml/min; Est GFR (Non-African American) 67.2 ml/min; Magnesium 1.8 mg/dl (1.7-2.4)
[2021-09-26] MEDS ORDERED: amLODIPine BESYLATE 5 MG TAB PO SCH (07:50)
[2021-09-26] MEDS ORDERED: lisinopril 20 MG TAB PO SCH (09:00)
[2021-09-26] MEDS ORDERED: ASPIRIN 81 MG ECTAB PO SCH (09:00)
--- NOTE | 2021-09-26 11:52 | Discharge Summary ---
Date of Service September 26, 2021 Admission HPI Per Admitting Provider 81 YOF with past medical history of: Osteopenia, HLD, HTN, bilateral lens repairs, cataracts. Patient comes in today for evaluation of her vision and was subsequently found to have elevated SBP > 200 with normal DBP. Patient states that over the past week, she noticed that her vision has had a "wave of curtains flowing" or seeing things like a rope on the couch that wasn't there. She also denies that she has pain in her eyes. This has also been associated with a frontal bilateral headache dull and 1/10, which today radiated to the back of her head. She denies that her vision complaints involve any actual vision loss, or black spots, or tunnel vision. She states that she may have some left facial tingling that has gone on and off for the past few days. She denies any other neurological complaints. Her BP is normally well controlled and she is on Lisinopril 20mg PO daily. She reports going to give blood last week and had her BP checked there and it was normal. In the EMD she had head CT scan performed, routine labs to include Troponin I, and ECG. Her laboratory work does not show any organ involvement with her elevated BP. Her CT non con was normal. Hospitalist service was consulted for admission- request CTA of the head and neck. She had an eye exam performed in 03/05 that was negative for any retinopathy and IOPs reported within normal limits. Her blood pressure originally did not respond to Labetalol 10mg IV x2- she was then given dose of 10mg Hydralazine prior to examination- her BP has responded and is now currently 160/80s, she feels that her headache that she was having in the frontal part of her head is gone, and her vision waves have also improved. She does note some "buzzing" in her ears. NO other focal deficits noted and both eyes have red- reflex noted. Patient will be admitted for following of her HTN overnight, and evaluation with CTA. Patient COVID Test on admission is: NEGATIVE Principal Diagnosis Hypertensive emergency Discharge Exam General: A&Ox3. NAD. Cooperative. HEENT: Atraumatic, normocephalic. Visual acuity and hearing grossly intact. No visual field cuts. Somewhat diminished acuity without glasses, but intact to confrontation without deficit. Pulm: CTAB A&P. -wheezes, -rales, -rhonchi. Symmetrical chest rise. No increase in work of breathing. No respiratory distress. Cardiac: RRR, -mrg. Radial pulses intact and symmetrical. Abdominal: Nontender, nondistended, soft. BS present. CRANIAL NERVES: II: Pupils equal and reactive, no relative afferent pupillary defect, no VF cuts III, IV, : EOM intact, no gaze preference or deviation, no nystagmus. V: normal sensation in V1, V2, and V3 segments bilaterally VII: no asymmetry, no nasolabial fold flattening VIII: normal hearing to speech IX, X: normal palatal elevation, no uvular deviation XI: 5/5 head turn and 5/5 shoulder shrug bilaterally XII: midline tongue protrusion MOTOR: RUE: 5/5 lokie engineer strength, finger flexion/extension, interosseus LUE: 5/5 lokie engineer strength, finger flexion/extension, interosseus RLE: 5/5 to hip flexio, ankle dorsiflexion/plantarflexion LLE: 5/5 to hip flexion, ankle dorsiflexion/plantarflexion SENSORY: Normal to touch in upper and lower extremities without deficit or asymmetry Discharge Data Allergies Allergy/AdvReac Type Severity Reaction Status Date / Time Penicillins Allergy Unknown HAPPENED Verified 09/25/21 16:03 50 YEARS AGO. Ordered Studies 09/25/21 14:47 CT head/brain wo con Stat 09/25/21 16:42 CT angio head w con Stat CT angio neck with con Stat Hospital Course (1) Hypertensive emergency: Patient presented with headache and visual disturbance in the setting of hypertension greater than 200 systolic. She had vision changes and headache as noted below all of which resolved with blood pressure control, patient was normotensive at discharge. To do as outpatient: 1. Routine follow-up to PCP, blood pressure check and blood pressure medication adjustments as needed 2. Dilated eye exam/retinal scan as outpatient 3. Continue amlodipine daily, aspirin low-dose 81 mg daily Hypertensive emergency Blood pressure greater than 227/89 at admit CThead: No acute intracranial abnormality, no ischemic/stroke-like findings CTA head/neck: Mild atherosclerosis without aneurysm, dissection, or high-grade stenosis or arterial occlusion. Neck with bilateral internal carotid mild atherosclerosis with less than 50% stenosis. Initially responded to labetalol and hydralazine Uptrending hypertension overnight, patient started on amlodipine 5 mg and became normotensive Patient 136/62 at time of discharge, symptoms completely resolved with blood pressure improvement including headache/visual change Continue amlodipine 5 mg daily as outpatient with close follow-up for blood pressure check Been started on low-dose aspirin daily Continue simvastatin 40 mg nightly, lipid panel during admission with LDL 55 (cholesterol 115, HDL 43, triglyceride 85) (2) Vision blurring: Resolved with blood pressure control CTA of the head and neck as above Patient story initially concerning for amaurosis, but does describe bilateral vision findings with a curtainlike wavy quality. Symptoms did occur in context of high blood pressure. Started on aspirin as above. Patient counseled that if visual disturbances, especially any signs of amaurosis/darkening, were to recur especially if she were normotensive she should seek prompt medical reevaluation Recommend follow-up outpatient retinal exam/dilated eye exam (3) Headache: Secondary to # 1 - Control BP - Tylenol PRN for pain Resolved with above treatment (4) Hypertension: Previously controlled - As above (5) Hypercholesteremia: LDL 55, statin increased deferred. Continue simvastatin as above (6) Osteopenia: No acute needs- hold Vitamin D Total Time Total Time Spent Total Time Spent (In Minutes): Time spend day of discharge 40 minutes including direct patient care, documentation, review of labs and images, and coordination of care. Discharge Plan Discharge Items Patient Disposition: Home - Self-Care Reason For Visit: HTN BLURRED VISION Discharge Diagnosis: Hypertensive Emergency Activity: As commented below Non-emergency contact: Primary Care Provider Call non-emergency contact if: you have any medication questions and your symptoms worsen Follow-up/Referrals: Kay Abbasi PA-C [Primary Care Provider] - Diet: Regular Addtl Attending Provider Instructions: You were seen in the hospital for headache and visual disturbances associated with very high blood pressure. All of your symptoms improved/resolved with blood pressure control. You have been started on a new blood pressure medication as noted below. You have been started on a new blood pressure medication, amlodipine. Please take amlodipine 5mg by mouth once daily in the morning. This medication can cause leg swelling in some patients. You have been started on a daily aspirin. Please take a low-dose aspirin 81 mg by mouth once daily. If you experience any recurrent visual disturbances, especially if your blood pressure remains well controlled, please call your primary care physician or se ek prompt reevaluation in the emergency department. A followup appointment is being scheduled for you with your primary care provider Kay Abbasi. You should be seen seen within 1 week for a blood pressure check. You should receive a call to confirm this appointment. If you do not receive a call within 48 hours to confirm this appointment, or need to change this appointment, please call the provider's office at the number above. You should either have a dilated eye/retinal scan exam performed at that visit if available, or referral for this exam by your primary care provider. If you develop any new or worsening symptoms including fever, chills, sweats, chest pain, chest pressure, difficulty breathing, uncontrolled nausea/vomiting, rash, wheezing, passing out or nearly passing out, bleeding, black/bloody bowel movements, or other new or concerning symptoms please call your primary care physician, or call 911 for re-evaluation in the emergency department if you are very concerned. Pending Studies at Discharge: No Stand-Alone Forms: [facility], Smoking Cessation Medications and DC Order Prescriptions: New amlodipine [Norvasc] 5 mg Tablet 5 mg PO QAM 30 Days Qty: 30 RF: 0 aspirin 81 mg Tablet,Delayed Release (Dr/Ec) 81 mg PO QAM 30 Days Qty: 30 RF: 0 Continued simvastatin 40 mg tablet 40 mg PO HS Qty: 30 RF: 11 lisinopril 20 mg tablet 20 mg PO DAILY Qty: 90 RF: 3 triamcinolone acetonide 0.1 % cream 1 applic topical BID PRN (Reason: ITCHY RASH) RF: 0 ergocalciferol (vitamin D2) 1,250 mcg (50,000 unit) capsule 1,250 mcg PO WK RF: 0 Discharge Orders: Discharge Order (Routine); Ordered 09/26/21 Ordered By: Danie Tesfaye Admission Data Admit Date/Time: 09/25/21 17:11 Attending Provider: Danie Tesfaye Admit Provider: Danie Tesfaye Primary Care Provider: Kay Abbasi Coding Level of Care Code D/C DAY MANAGEMENT >30 MINS Diagnoses Hypertensive emergency I16.1 Vision blurring H53.8 Headache R51 Hypertension I10 Hypertension type: essential hypertension Hypercholesteremia E78.00 Osteopenia M85.80
== END 2021-09-26 15:30 | disposition home or self-care (01) | DRG 305 ==
LOC: ED 14:23 → 2N 17:11

== ENCOUNTER 2024-06-14 15:41 | Inpatient (IN) ==
--- OUTSIDE RECORDS SUMMARY | 2024-06-14 15:46 | External Medical Summary ---
Author Name Unknown Address Unknown Organization [id number]:LABORATORY [facility] [place] - [address] [facility] [address] Laboratory Report Ordering Provider Test Date Status MAUDE DELANEY 06/13/2024 05:59:00 Final Observation Date Value Abnormality Reference (Units ) Status WBC, Total 06/13/2024 05:59:00 8.22 4.00-10.80 (K/uL) Final RBC 06/13/2024 05:59:00 4.52 3.85-5.15 (M/uL) Final Hemoglobin 06/13/2024 05:59:00 13.5 12.0-15.3 (g/dL) Final HCT 06/13/2024 05:59:00 41.6 36.0-45.2 (%) Final MCV 06/13/2024 05:59:00 92.0 81.5-97.5 (fL) Final MCH 06/13/2024 05:59:00 29.9 27.0-34.0 (pg) Final MCHC 06/13/2024 05:59:00 32.5 32.0-36.0 (g/dL) Final RDW 06/13/2024 05:59:00 14.6 11.5-15.5 (%) Final Platelets 06/13/2024 05:59:00 174 140-400 (K/uL) Final MPV 06/13/2024 05:59:00 10.3 6.6-11.1 (fL) Final Nucleated erythrocytes/100 leukocytes [Ratio] in Blood by Automated count 06/13/2024 05:59:00 0 <=0 (/100 WBCs) Final Performing Location LABORATORY [facility] [place] - [address] [place] [address]
--- OUTSIDE RECORDS SUMMARY | 2024-06-14 15:46 | External Medical Summary | Summary of Care ---
Author Name Unknown Organization [facility] Address [address] [place] [address] Phone [phone] Care Team Providers Care [employer] Name Role Phone Davy Donald Roc GUO Primary Care Provider + Reason for Visit * Auth/Cert Specialty Diagnoses / Procedures Referred By Contkarlos t Referred To Contact Diagnoses SAH (subarachnoid hemorrhage) (HCC) SAH Asif Waite DO [address] [place] [address] Phone: tel: fax: Admissions, [facility] [address] [place] [address] Referral ID Status Reason Start Date Expiration Date Visits Re quested Visits Authorized [id number] Encounter Details Date Type Department Care Team (Latest Contact Info) Description 06/13/2024 12:53 PM EST - 06/13/2024 11:59 PM EST Hospital Encounter Cardiac Studies [facility] [address] [place] [address] Discharge Disposition: Home - Self Care Allergies No known active allergiesdocumented as of this encounter (statuses as of 06/14/2024) Medications MYRBETRIQ 50 MG TB24 07/13/20 18 024 Discontinued(Me dication List Clean Up) simvastatin (ZOCOR) 40 MG Tablet Take 1 Tablet by mouth every evening. Suspended Cholecalciferol (VITAMIN D3) 33117 units TABS Take by mouth. 024 Discontinued(Me dication List Clean Up) Lisinopril 30 MG Oral Tablet Take 1 Tablet by mouth in the morning. Suspended Vitamin D (Ergocalciferol ) 1.25 MG (75049 UT) Oral Capsule Take 1 Capsule by mouth once a week. 06/14/20 21 Suspended Triamcinolone Acetonide 0.1 % External Cream (Aristocort)Ind ications:Xerosi s cutis,Irritant contact dermatitis, unspecified trigger Apply 2x daily (or more if itchy instead of scratching) to marin on arms until resolved, then when flaring 80 g 08/30/19 22 024 Discontinued Vitamin B-12 1000 MCG Oral Tablet (Cyanocobalamin ) Take 1 Tablet by mouth in the morning. 05/18/20 24 Suspended documented as of this encounter (statuses as of 06/14/2024) Active Problems Problem Noted Date Diagnosed Date SAH (subarachnoid hemorrhage) 06/13/2024 Cerebral amyloid angiopathy 06/13/2024 Hx of nonmelanoma skin cancer 07/25/2018 Overview (07/25/2018): Joey (L cheek), Bowenoid AK (L mandible) Actinic keratosis 07/25/2018 documented as of this encounter (statuses as of 06/14/2024) Social History Tobacco Use Types Packs/Day Years Used Date Smoking Tobacco: Never Smokeless Tobacco: Never Alcohol Use Standard Drinks/Week Comments Never 0 (1 standard drink = 0.6 oz pur e alcohol) Comments Unknown Sex and Gender Information Value Date Recorded Sex Assigned at Not on file Legal Sex Female 6:02 AM EST Gender Identity Not on file Sexual Orientation Not on file documented as of this encounter Functional Status * Are you deaf or do you have serious difficulty hearing? Answer Date of Assessment Author No 06/12/2024 3:30 PM Andre Giraldo RN * Are you blind or do you have serious difficulty seeing, even when wearing glasses? Answer Date of Assessment Author No 06/12/2024 3:30 PM Andre Giraldo RN * Do you have serious difficulty walking or climbing stairs? (5 years old or older) Answer Date of Assessment Author No 06/12/2024 3:30 PM Andre Giraldo RN * Do you have difficulty dressing or bathing? (5 years old or older) Answer Date of Assessment Author No 06/12/2024 3:30 PM Andre Giraldo RN * Because of a physical, mental, or emotional condition, do you have difficulty doing errands alone such as visiting a doctors office or shopping? (15 years old or older) Answer Date of Assessment Author No 06/12/2024 3:30 PM Andre Giraldo RN documented as of this encounter Mental Status * Because of a physical, mental, or emotional condition, do you have serious difficulty concentrating, remembering, or making decisions? (5 years old or older) Answer Entry Date Author No 06/12/2024 3:30 PM Andre Giraldo RN documented in this encounter Plan of Treatment Upcoming Encounters Date Type Department Care Team (Late st Contact Info) Description 11/20/2024 9:40 AM EDT Office [facility] [address] [place] [phone] Yakelin Ruth PA-C [address] [place] [address] [place] [phone] Health Maintenance Due Date Last Done Comments DXA Scan 1940 Depression Screening 1950 DTap/Tdap Vaccines (1 - Tdap) 1957 Zoster Vaccines (1 of 2) 1988 Pneumococcal Vaccine: 65+ Years (2 of 2 - PPSV23 or PCV20) 06/26/2019 06/26/2018 COVID-19 Vaccine ( season) 2024 04/23/2023, 05/04/2022, 06/10/2021, Additional history exists Influenza Vaccine (FLU shot) (#1) 2024 07/25/2019, 06/12/2018, 05/21/2017, Additional history exists HPV (Gardasil) Vaccine Aged Out No lo nger eligible based on patient's age to complete this topic Hepatitis B Vaccine Aged Out No longe r eligible based on patient's age to complete this topic MENINGOCOCCAL (MENACTRA/MENVEO) Aged Out No longer eligible based on patient's age to complete this topic documented as of this encounter Medical Devices Not on filedocumented as of this encounter Procedures Procedure Name Priority Date/Time Associated Diagnosis Comments ECHO, COMPLETE (2D), TRANS-THORACIC Routine 06/13/2024 2:43 PM EST Stroke (HCC) documented in this encounter Visit Diagnoses Diagnosis SAH (subarachnoid hemorrhage) (HCC)- Primary Subarachnoid hemorrhage Actinic keratosis Hx of nonmelanoma skin cancer Personal history of other malignant neoplasm of skin Other ill-defined heart diseases documented in this encounter Administered Medications Inactive Administered Medications - up to 3 most recent administrations Medication Order MAR Action Action Date Dose Rate Site perflutren lipid microsphere inj SUSP 1.956 mg 1.956 mg, Intravenous, ONCE PRN Other, For Echo Only - Suboptimal Echo Images, Starting on Sun06/13/24 at 1443, Until Sun06/13/24 at 1642, For 2 hours, Administer IVP over 45 seconds, Cardiac Studies_HODHOVIndications:SAH (subarachnoid hemorrhage) (HCC),Actinic keratosis,Hx of nonmelanoma skin cancer,Other ill-defined heart diseases Given 06/13/2024 2:44 PM EST 1.956 mg documented in this encounter Advance Directives * No Code (Latest Code Status on File) Date Activated Date Inactivated Comments 06/12/2024 4:50 PM This order re flects the patients wishes and were consensually agreed upon. Question Answer Comments Discussion of Advance Directives occurred with: Patient Care Teams [employer] Relationship Specialty Start Date End Date Donald Bhatti DO [address] [place] [address] [place] [id number] PCP - General Family Medicine 08/28/22 documented as of this encounter
--- OUTSIDE RECORDS SUMMARY | 2024-06-14 15:46 | External Medical Summary ---
Author Name Unknown Address Unknown Organization K01:[facility] [place] [address] [facility] [address] Laboratory Report Ordering Provider Test Date Status MAUDE DELANEY 06/14/2024 06:00:00 Final Observation Date Value Abnormality Reference (Units ) Status SYNC LEUKOCYTES IN BLOOD BY AUTOMATED COUNT 06/14/2024 06:00:00 7.31 4.00-10.80 (K/uL) Final Segs 06/14/2024 06:00:00 68.9 40.0-75.0 (%) Final Lymphs % 06/14/2024 06:00:00 22.2 18.0-42.0 (%) Final Monos 06/14/2024 06:00:00 6.6 1.0-11.0 (%) Final Eosinophils 06/14/2024 06:00:00 1.5 0.0-6.0 (%) Final Basos 06/14/2024 06:00:00 0.4 0.0-2.0 (%) Final Immature Granulocyte, Percent 06/14/2024 06:00:00 0.4 0.0-2.0 (%) Final Absolute Segs 06/14/2024 06:00:00 5.04 1.80-7.70 (K/uL) Final Lymphs, absolute 06/14/2024 06:00:00 1.62 1.00-4.80 (K/ul) Final Monos, Abs 06/14/2024 06:00:00 0.48 0.00-1.10 (K/uL) Final Eos, Abs 06/14/2024 06:00:00 0.11 0.00-0.70 (K/uL) Final Basos, Abs 06/14/2024 06:00:00 0.03 0.00-0.20 (K/uL) Final Immature Granulocytes, Number 06/14/2024 06:00:00 0.03 0.00-0.20 (K/uL) Final Performing Location [facility] [place] [address] [facility] [address]
--- OUTSIDE RECORDS SUMMARY | 2024-06-14 15:46 | External Medical Summary ---
Author Name Unknown Address Unknown Organization K01:LABORATORY [facility] [place] - [address] [facility] [place] [address] Laboratory Report Ordering Provider Test Date Status MAUDE DELANEY 06/13/2024 05:59:00 Final Observation Date Value Abnormality Reference (Units ) Status SYNC LEUKOCYTES IN BLOOD BY AUTOMATED COUNT 06/13/2024 05:59:00 8.22 4.00-10.80 (K/uL) Final Segs 06/13/2024 05:59:00 80.0 Above high normal 40.0-75.0 (%) Final Lymphs % 06/13/2024 05:59:00 13.1 Below low normal 18.0-42.0 (%) Final Monos 06/13/2024 05:59:00 5.7 1.0-11.0 (%) Final Eosinophils 06/13/2024 05:59:00 0.4 0.0-6.0 (%) Final Basos 06/13/2024 05:59:00 0.4 0.0-2.0 (%) Final Immature Granulocyte, Percent 06/13/2024 05:59:00 0.4 0.0-2.0 (%) Final Absolute Segs 06/13/2024 05:59:00 6.58 1.80-7.70 (K/uL) Final Lymphs, absolute 06/13/2024 05:59:00 1.08 1.00-4.80 (K/ul) Final Monos, Abs 06/13/2024 05:59:00 0.47 0.00-1.10 (K/uL) Final Eos, Abs 06/13/2024 05:59:00 0.03 0.00-0.70 (K/uL) Final Basos, Abs 06/13/2024 05:59:00 0.03 0.00-0.20 (K/uL) Final Immature Granulocytes, Number 06/13/2024 05:59:00 0.03 0.00-0.20 (K/uL) Final Performing Location LABORATORY [facility] [place] - [address] [facility] [address]
--- OUTSIDE RECORDS SUMMARY | 2024-06-14 15:46 | External Medical Summary ---
Author Name Unknown Address Unknown Organization K01:LABORATORY [facility] - [address] [place] [address] Laboratory Report Ordering Provider Test Date Status ELAINAMAUDE Quinn 06/13/2024 05:59:00 Final Observation Date Value Abnormality Reference (Units ) Status Magnesium 06/13/2024 05:59:00 2.1 1.5-2.6 (m g/dL) Final Performing Location LABORATORY [facility] - [address] [place] [address]
--- OUTSIDE RECORDS SUMMARY | 2024-06-14 15:46 | External Medical Summary ---
Author Name Unknown Address Unknown Organization K01:[facility] [place] [address] [facility] [place] [address] Laboratory Report Ordering Provider Test Date Status MAUDE DELANEY 06/12/2024 20:33:00 Final Observation Date Value Abnormality Reference (Units ) Status SYNC LEUKOCYTES IN BLOOD BY AUTOMATED COUNT 06/12/2024 20:33:00 9.92 4.00-10.80 (K/uL) Final Segs 06/12/2024 20:33:00 82.8 Above high normal 40.0-75.0 (%) Final Lymphs % 06/12/2024 20:33:00 10.5 Below low normal 18.0-42.0 (%) Final Monos 06/12/2024 20:33:00 5.4 1.0-11.0 (%) Final Eosinophils 06/12/2024 20:33:00 0.5 0.0-6.0 (%) Final Basos 06/12/2024 20:33:00 0.4 0.0-2.0 (%) Final Immature Granulocyte, Percent 06/12/2024 20:33:00 0.4 0.0-2.0 (%) Final Absolute Segs 06/12/2024 20:33:00 8.21 Above high normal 1.80-7.70 (K/uL) Final Lymphs, absolute 06/12/2024 20:33:00 1.04 1.00-4.80 (K/ul) Final Monos, Abs 06/12/2024 20:33:00 0.54 0.00-1.10 (K/uL) Final Eos, Abs 06/12/2024 20:33:00 0.05 0.00-0.70 (K/uL) Final Basos, Abs 06/12/2024 20:33:00 0.04 0.00-0.20 (K/uL) Final Immature Granulocytes, Number 06/12/2024 20:33:00 0.04 0.00-0.20 (K/uL) Final Performing Location [facility] [place] - [facility] [place] [address]
--- OUTSIDE RECORDS SUMMARY | 2024-06-14 15:46 | External Medical Summary ---
Author Name Unknown Address Unknown Organization K01:LABORATORY [facility] [place] - [facility] [address] [facility] [address] Laboratory Report Ordering Provider Test Date Status MAUDE DELANEY 06/12/2024 20:33:00 Final Observation Date Value Abnormality Reference (Units ) Status WBC, Total 06/12/2024 20:33:00 9.92 4.00-10.80 (K/uL) Final RBC 06/12/2024 20:33:00 4.57 3.85-5.15 (M/uL) Final Hemoglobin 06/12/2024 20:33:00 13.6 12.0-15.3 (g/dL) Final HCT 06/12/2024 20:33:00 41.7 36.0-45.2 (%) Final MCV 06/12/2024 20:33:00 91.2 81.5-97.5 (fL) Final MCH 06/12/2024 20:33:00 29.8 27.0-34.0 (pg) Final MCHC 06/12/2024 20:33:00 32.6 32.0-36.0 (g/dL) Final RDW 06/12/2024 20:33:00 14.4 11.5-15.5 (%) Final Platelets 06/12/2024 20:33:00 194 140-400 (K/uL) Final MPV 06/12/2024 20:33:00 10.0 6.6-11.1 (fL) Final Nucleated erythrocytes/100 leukocytes [Ratio] in Blood by Automated count 06/12/2024 20:33:00 0 <=0 (/100 WBCs) Final Performing Location LABORATORY [facility] [place] - [address] [place] [address]
--- OUTSIDE RECORDS SUMMARY | 2024-06-14 15:46 | External Medical Summary ---
Author Name Unknown Address Unknown Organization : Laboratory Report Ordering Provider Test Date Status MAUDE DELANEY 06/13/2024 05:59:00 Final Observation Date Value Abnormality Reference (Units ) Status Performing Location
--- OUTSIDE RECORDS SUMMARY | 2024-06-14 15:46 | External Medical Summary ---
Author Name Unknown Address Unknown Organization [id number]:LAB[facility]ATORY [facility] [place] - [address] [place] [address] Laboratory Report Ordering Provider Test Date Status MAUDE DELANEY 06/13/2024 05:59:00 Final Observation Date Value Abnormality Reference (Units ) Status BUN 06/13/2024 05:59:00 20 6-20 (mg/dL) Final Creatinine 06/13/2024 05:59:00 0.8 0.5-1.0 (mg/dL) Final Glomerular filtration rate/1.73 sq M.predicted [Volume Rate/Area] in Serum, Plasma or Blood by Creatinine-based formula (CKD-EPI) 06/13/2024 05:59:00 69 >=60 (mL/min) Final eGFR is calculated based on the CKD-EPI 2020 equation. Sodium 06/13/2024 05:59:00 139 135-146 (m mol/L) Final Potassium 06/13/2024 05:59:00 4.0 3.5-5.1 (m mol/L) Final Cl 06/13/2024 05:59:00 107 98-107 (mm ol/L) Final CO2 06/13/2024 05:59:00 22 22-32 (mmo l/L) Final Anion gap 06/13/2024 05:59:00 10 7-15 (mmol /L) Final Glucose 06/13/2024 05:59:00 104 70-120 (mg /dL) Final Calcium 06/13/2024 05:59:00 9.4 8.4-10.2 ( mg/dL) Final Performing Location [facility]ORY [facility] [place] - [address] [place] [address]
--- OUTSIDE RECORDS SUMMARY | 2024-06-14 15:46 | External Medical Summary ---
Author Name Unknown Address Unknown Organization [id number]:[facility] [place] [address] [place] [id number] Laboratory Report Ordering Provider Test Date Status MAUDE DELANEY 06/12/2024 22:13:44 Final Observation Date Value Abnormality Reference (Units) Status Bacteria identified in Specimen by Culture 06/12/2024 22:13:44 No significant growth Final Test: Culture, Urine, Quanti tative
Specimen Source: Urine, Clean Catch
Specimen Type: Urine
Specimen Date: 06/12/20242212
Result Date: 06/13/2024 1728
Result Status: Final result
Resulting Lab: [facility] [place]
[address]
[facility] [address]

CULTURE

No significant growth

null Performing Location [facility] [place] [address] [facility] [address]
--- OUTSIDE RECORDS SUMMARY | 2024-06-14 15:46 | External Medical Summary ---
Author Name Unknown Address Unknown Organization : Laboratory Report Ordering Provider Test Date Status JULIUS GANDHI 06/13/2024 13:36:25 Final Observation Date Value Abnormality Reference (Units ) Status Glucose Point of Care 06/13/2024 13:36:25 108 70-120 (mg/dL) Final Performing Location
--- OUTSIDE RECORDS SUMMARY | 2024-06-14 15:46 | External Medical Summary ---
Author Name Unknown Address Unknown Organization [id number]:[facility] [place] [address] [place] [address] Laboratory Report Ordering Provider Test Date Status MAUDE DELANEY 06/14/2024 06:00:00 Final Observation Date Value Abnormality Reference (Units ) Status BUN 06/14/2024 06:00:00 24 Above high normal 6-20 (mg/dL) Final Creatinine 06/14/2024 06:00:00 1.0 0.5-1.0 (mg/dL) Final Glomerular filtration rate/1.73 sq M.predicted [Volume Rate/Area] in Serum, Plasma or Blood by Creatinine-based formula (CKD-EPI) 06/14/2024 06:00:00 52 Below low normal >=60 (mL/min) Final eGFR is calculated based on the CKD-EPI 2020 equation. Sodium 06/14/2024 06:00:00 141 135-146 (m mol/L) Final Potassium 06/14/2024 06:00:00 4.0 3.5-5.1 (m mol/L) Final Cl 06/14/2024 06:00:00 108 Above high normal 98 -107 (mmol/L) Final CO2 06/14/2024 06:00:00 24 22-32 (mmo l/L) Final Anion gap 06/14/2024 06:00:00 9 7-15 (mmol /L) Final Glucose 06/14/2024 06:00:00 108 70-120 (mg /dL) Final Calcium 06/14/2024 06:00:00 9.3 8.4-10.2 ( mg/dL) Final Performing Location [facility] [place] [address] [place] [address]
--- OUTSIDE RECORDS SUMMARY | 2024-06-14 15:46 | External Medical Summary ---
Author Name Unknown Address Unknown Organization [id number][place] [facility] [place] [address] [facility] [address] Laboratory Report Ordering Provider Test Date Status MAUDE DELANEY 06/14/2024 06:00:00 Final Observation Date Value Abnormality Reference (Units ) Status WBC, Total 06/14/2024 06:00:00 7.31 4.00-10.80 (K/uL) Final RBC 06/14/2024 06:00:00 4.24 3.85-5.15 (M/uL) Final Hemoglobin 06/14/2024 06:00:00 12.9 12.0-15.3 (g/dL) Final HCT 06/14/2024 06:00:00 39.0 36.0-45.2 (%) Final MCV 06/14/2024 06:00:00 92.0 81.5-97.5 (fL) Final MCH 06/14/2024 06:00:00 30.4 27.0-34.0 (pg) Final MCHC 06/14/2024 06:00:00 33.1 32.0-36.0 (g/dL) Final RDW 06/14/2024 06:00:00 14.6 11.5-15.5 (%) Final Platelets 06/14/2024 06:00:00 189 140-400 (K/uL) Final MPV 06/14/2024 06:00:00 10.1 6.6-11.1 (fL) Final Nucleated erythrocytes/100 leukocytes [Ratio] in Blood by Automated count 06/14/2024 06:00:00 0 <=0 (/100 WBCs) Final Performing Location [facility] [place] [address] [place] [address]
--- OUTSIDE RECORDS SUMMARY | 2024-06-14 15:46 | External Medical Summary ---
Author Name Unknown Address Unknown Organization K01:LABORATORY [facility] - [address] [place] [address] Laboratory Report Ordering Provider Test Date Status MAUDE DELANEY 06/14/2024 06:00:00 Final Observation Date Value Abnormality Reference (Units ) Status Magnesium 06/14/2024 06:00:00 2.1 1.5-2.6 (m g/dL) Final Performing Location [facility] [place] [address] [place] [address]
--- OUTSIDE RECORDS SUMMARY | 2024-06-14 15:47 | External Medical Summary ---
Author Name Unknown Address Unknown Organization [id number]:[place] [facility] [place] [address] [place] [address] Laboratory Report Ordering Provider Test Date Status BANDAR HAMPTON 06/12/2024 17:59:00 Final Warfarin Therapy
INR: 2 .0-3.0 conventional anticoagulation
INR: 2.5- 3.5 high intensity anticoagulation Observation Date Value Abnormality Reference (Units ) Status PT 06/12/2024 17:59:00 12.6 11.6-15.2 (seconds) Final INR 06/12/2024 17:59:00 0.9 0.8-1.2 Final Performing Location [facility] [facility] [place] [address] [place] [address]
--- OUTSIDE RECORDS SUMMARY | 2024-06-14 15:47 | External Medical Summary ---
Author Name Unknown Address Unknown Organization [id number]:LAB[facility] [place] [facility] - [address] [place] [address] Laboratory Report Ordering Provider Test Date Status BANDAR HAMPTON 06/12/2024 17:58:00 Final Observation Date Value Abnormality Reference (Units ) Status ABO 06/12/2024 17:58:00 O Final RH 06/12/2024 17:58:00 Negative Final RED BLOOD CELL ANTIBODY SCREEN 06/12/2024 17:58:00 Negative Final SPECIMEN EXPIRATION DATE 06/12/2024 17:58:00 06/15/2024 23:59 Final Performing Location LABOR[facility]ORY [facility] [place] [facility] - [address] [place] [address]
--- OUTSIDE RECORDS SUMMARY | 2024-06-14 15:47 | External Medical Summary ---
Author Name Unknown Address Unknown Organization K01:LABORATORY [facility] - [address] [place] [address] Laboratory Report Ordering Provider Test Date Status MAUDE DELANEY 06/12/2024 20:33:00 Final Observation Date Value Abnormality Reference (Units ) Status Magnesium 06/12/2024 20:33:00 2.0 1.5-2.6 (m g/dL) Final Performing Location LABORATORY [facility] - [address] [place] [address]
--- OUTSIDE RECORDS SUMMARY | 2024-06-14 15:47 | External Medical Summary ---
Author Name Unknown Address Unknown Organization K01:[facility] [place] [facility] [facility] - [address] [place] [address] Laboratory Report Ordering Provider Test Date Status BANDAR HAMPTON 06/12/2024 17:58:00 Final Observation Date Value Abnormality Reference (Units ) Status ABO 06/12/2024 17:58:00 O Final RH 06/12/2024 17:58:00 Negative Final Performing Location [facility] [place] [facility] - [address] [place] [address]
--- OUTSIDE RECORDS SUMMARY | 2024-06-14 15:47 | External Medical Summary ---
Author Name Unknown Address Unknown Organization [id number][place] [facility] [place] [address] [place] [address] Laboratory Report Ordering Provider Test Date Status MAUDE DELANEY 06/12/2024 20:33:00 Final Observation Date Value Abnormality Reference (Units ) Status BUN 06/12/2024 20:33:00 20 6-20 (mg/dL) Final Creatinine 06/12/2024 20:33:00 0.8 0.5-1.0 (mg/dL) Final Glomerular filtration rate/1.73 sq M.predicted [Volume Rate/Area] in Serum, Plasma or Blood by Creatinine-based formula (CKD-EPI) 06/12/2024 20:33:00 71 >=60 (mL/min) Final eGFR is calculated based on the CKD-EPI 2020 equation. Sodium 06/12/2024 20:33:00 139 135-146 (m mol/L) Final Potassium 06/12/2024 20:33:00 4.1 3.5-5.1 (m mol/L) Final Cl 06/12/2024 20:33:00 106 98-107 (mm ol/L) Final CO2 06/12/2024 20:33:00 22 22-32 (mmo l/L) Final Anion gap 06/12/2024 20:33:00 11 7-15 (mmol /L) Final Glucose 06/12/2024 20:33:00 108 70-120 (mg /dL) Final Calcium 06/12/2024 20:33:00 9.3 8.4-10.2 ( mg/dL) Final Performing Location [place] [facility] [place] [address] [place] [address]
--- OUTSIDE RECORDS SUMMARY | 2024-06-14 15:47 | External Medical Summary ---
Author Name Unknown Address Unknown Organization K01:LABORATORY [facility] [place] - [address] [place] [address] Laboratory Report Ordering Provider Test Date Status BANDAR HAMPTON 06/12/2024 17:58:00 Final Observation Date Value Abnormality Reference (Units ) Status HbA1C 06/12/2024 17:58:00 5.5 4.0-5.6 (% ) Final The use of HbA1c to monitor glycemic status is based on normal hemoglobin and HbA composition. This test should not be used in patients with abnormal hemoglobin that affects the half life of the red blood cell or the in vivo glycation rates. Glucose, estimated average 06/12/2024 17:58:00 111 <126 (mg/dL) Final Performing Location LAB[facility] [place] [facility] [address] [facility] [address]
--- OUTSIDE RECORDS SUMMARY | 2024-06-14 15:47 | External Medical Summary ---
Author Name Unknown Address Unknown Organization K01:[facility] [place] [address] [facility] [place] [address] Laboratory Report Ordering Provider Test Date Status BANDAR HAMPTON 06/12/2024 17:59:00 Final Observation Date Value Abnormality Reference (Units ) Status Triglyceride 06/12/2024 17:59:00 80 <=174 ( mg/dL) Final Triglyceride Reference Range s (mg/dL):
<150 Acceptable
150-174 Borderline high
175-499 High
>=500 Very high Cholesterol 06/12/2024 17:59:00 169 <200 (mg /dL) Final Total Cholesterol Reference Ranges (mg/dL):
<200 Desirable
200-239 Borderline high
>=240 High HDL 06/12/2024 17:59:00 61 >49 (mg/dL ) Final HDL Cholesterol Reference Ra nges (mg/dL):
>=60 High (Desirable)
<50 Low (Undesirable) For Females
<40 Low (Undesirable) For Males NON-HDL CHOLESTEROL 06/12/2024 17:59:00 108 <=159 (mg/dL) Final Non-HDL Cholesterol Referenc e Range (mg/dL):
<100 Target level for high risk ASCVD patient
<130 Optimal for general population
130-159 Near optimal for general population
160-189 Borderline High
190-219 High
>=220 Very High LDL, (calculated) 06/12/2024 17:59:00 92 <= 129 (mg/dL) Final LDL Cholesterol Reference Ra nges (mg/dL):
<70 Target level for high risk ASCVD patient
<100 Optimal for general population
100-129 Near optimal for general population
130-159 Borderline high
160-189 High
>=190 Very high Performing Location [facility] [place] [address] [facility] [address]
--- NOTE | 2024-06-14 16:09 | CT Scan Report ---
EXAM: CT Head Without Intravenous Contrast INDICATION: Recent intracranial hemorrhage. TECHNIQUE: Axial computed tomography images of the head/brain without intravenous contrast. Sagittal and/or coronal reformats are provided. Sagittal and coronal reformatted images were created and reviewed. This CT exam was performed using one or more of the following dose reduction techniques: automated exposure control, adjustment of the mA and/or kV according to patient size, and/or use of iterative reconstruction technique. COMPARISON: 06/12/2024 FINDINGS: Limitations: None. Brain and extra-axial spaces: Very minimally improved left posterior convexity subarachnoid hemorrhage noted. Mild cortical atrophy and periventricular chronic small vessel ischemic changes noted. No subdural hemorrhage. Bones/joints: No acute changes. Soft tissues: No significant abnormality noted. Vasculature: No acute abnormality noted. Sinuses: No layering fluid in the visualized portions of the paranasal sinuses. Mastoid air cells: No mastoid effusion. Orbits: No significant abnormality noted. IMPRESSION: Very minimally improved left posterior convexity subarachnoid hemorrhage noted. ACT 112: Negative or not required by law. Electronically signed by Roxanne Breen 06-14-2024 4:08 PM
--- NOTE | 2024-06-14 16:15 | Emergency Department Note ---
Impression & Plan Hypertensive urgency, History of subarachnoid hemorrhage ED Provider Note NAME: SALVATORE PERLA AGE: 84 SEX: F : 1940 ARRIVES VIA: Walk-In INFORMANT: Patient, sons ED PROVIDER(S): Carlos Bright MD CHIEF COMPLAINT: High blood pressure, difficulty with walking MEDICAL DECISION MAKING: Patient presents due to concern for difficulty with walking and is accompanied by her son. I did see the patient several days ago and was diagnosed with subarachnoid hemorrhage and hypertensive emergency. IV was established and blood work was obtained and patient did not immediately go over to CT. CT of the head does not show any worsening changes and shows very mild improvement. Patient's blood work shows a normal white count H&H and platelet counts the patient's kidney function is unremarkable. BioFire negative. TSH high but free T4 normal. Patient was noted to be hypertensive and the patient was ordered IV hydralazine 10 mg. Given the patient's symptoms I did speak the on-call hospital service Dr. Jackson and the patient was admitted to the medicine service. Patient does not have any focal neurologic deficits on exam and is well-appearing. Do not believe she requires emergent transfer back to [place] at this time in light of the patient's slight improvement of her CT head subarachnoid hemorrhage. Critical Care: I have personally spent 45 minutes of critical care time in direct management of this patient. This includes bedside care, interpretation of diagnostic studies, and testing, discussion with consultants, patient, and family members, and other require inpatient management activities. This 45 minutes is in excess of all separately billable procedures. Discussion w/ other healthcare providers: Dr. Jackson inpatient medicine service Prior /Outside records reviewed: none Differential diagnosis: Benign hypertension, hypertensive emergency, hypertensive emergency/urgency, salt intake, pheochromocytoma, electrolyte abnormality, renal disease as well as other etiologies were entertained. Diagnostics, as interpreted by me: ECG: Sinus bradycardia, rate of 50, normal intervals, normal axis T wave inversions anterior laterally and high lateral and inferior leads. Cardiac monitoring: An order was placed for continuous cardiac monitoring. The monitor shows a rate of 55 with sinus rhythm. Patient was placed on pulse oximetry Medical decision rules: None Imaging studies: I informally interpreted the patient's CT head does show small area of subarachnoid hemorrhage with formal report to follow. HPI: Patient presents due to concern for difficulty with walking. The patient was recently seen and transferred to [facility] due to concern for subarachnoid hemorrhage. The patient reportedly was discharged earlier today and when she got home she felt as though she cannot feel her feet very well to where she was having difficulty with walking. The patient was able to do so. The patient reportedly did have her aspirin held since the time of her admission but no other medication changes and no changes in her antihypertensives. Patient states that she has been compliant with her medications and did take her lisinopril 30 mg this morning. Patient denies any falls or trauma since the time of discharge. Patient denies any numbness tingling or focal weakness at this time and no headache or neck pain. Patient denies any back pain. PAST MEDICAL HISTORY: See Below PAST SURGICAL HISTORY: See Below SOCIAL HISTORY: See Below HOME MEDICATIONS: See Below ALLERGIES: See Below VITALS: See Below PHYSICAL EXAMINATION: GENERAL: NAD, non-toxic. EYE EXAM: Normal conjunctiva. PERRL, no anisocoria and EOM's grossly intact w/o pain. OROPHARYNX: Moist mucus membranes, grossly normal dentition. NECK: Trachea midline, no stridor. Supple, no nuchal rigidity, no adenopathy, non-tender. No signs of meningismus. FROM of the neck with good chin to chest and neck extension. LUNGS: Clear to auscultation. Normal chest wall mechanics. HEART: NSR, no MRG. ABDOMEN: Abdomen soft, non-tender, no masses, no rebound or guarding. BACK: No CVA TTP. SKIN: No rashes and no bruising. UPPER EXTREMITIES: Upper extremities are grossly normal. LOWER EXTREMITIES: Grossly normal, no edema. NEURO EXAM: A&O x3, cranial nerves II-XII grossly intact, normal speech, moves all 4 extremities. Good [id number], no drift and no sensory deficits, no sensory deficits in the lower extremities with good range of motion and strength of the bilateral upper and lower extremities. Past Med/Surg History Problem List (Updated 06/15/24 @ 19:47 by Carlos Bright MD) History of subarachnoid hemorrhage (Acute) Hypertensive urgency (Acute) Leg weakness Stroke-like symptoms (Acute) Hypertensive emergency (Acute) Acute confusion (Acute) SAH (subarachnoid hemorrhage) (Acute) Macrocytic anemia with vitamin B12 deficiency Anemia Hypercholesteremia (Chronic) Hypertension (Chronic) Vitamin D deficiency (Chronic) Osteopenia Urge incontinence (Acute) Rosacea (Acute) Prolapse of vaginal meza (Acute) Prolapsed bladder Positive Lyme disease serology Chronic kidney disease, stage 3a Obesity (BMI 30.0-34.9) Pessary maintenance Melanoma (~08/2020) right forearm, resected Medical History Hypertensive emergency Vision blurring Headache Menopause Vitamin D deficiency Hypertension Surgical History History of colonoscopy (~07/29/09) History of dilation and curettage History of tooth extraction Family History Sister Malignant melanoma Mother Hypertension Diabetes Cardiac disorder from acute MA age 64 Father Lung cancer age 78 Tobacco use Brother Kidney stone Brother Aortic aneurysm Sister Cancer Denies family history of Colon cancer Breast cancer Social History Smoking Status: Never smoker Second Hand Exposure: No; Do You Dip or Chew Tobacco: No; Hx Alcohol Use: No Hx Substance Use: No Preferred Language: Haitian Communication Ability: Effective Visual Impairment: No Limitations Hearing Ability: Normal [employer] Required: No Beliefs That Will Affect Care: None marital status: Current Living Situation: Alone current occupational status: retired 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; 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 [employer] How many Children do You have: 2 How many Children do You have Comment: sons Other Information That Helps Us Care for You: No other: lives in [place] Feels Safe at Home: Yes Safety Concerns: Feels Safe At This Time Childhood Exposure to Second-Hand Smoke: Yes Diet: regular caffeine: Yes Dental Care, Regularly: No Physical Activity Frequency: Daily Seatbelt Use: always Sunscreen Use: Yes Assistive Devices: Walker Assistive Devices Comment: reading glasses Allergies Allergies Allergy/AdvReac Type Severity Reaction Status Date / Time Penicillins Allergy Unknown HAPPENED Verified 04/02/24 07:51 50 YEARS AGO. Home Meds Home Medications Medication Instructions Recorded Confirmed ergocalciferol (vitamin D2) 1,250 1,250 mcg PO WK 06/14/24 06/14/24 mcg (50,000 unit) capsule estradiol 0.01% (0.1 mg/gram) 1 g vaginal WK 06/14/24 06/14/24 vaginal cream Previous Rx's Medication Instructions Recorded cyanocobalamin (vitamin B-12) 1,000 mcg PO DAILY #90 tabs 02/20/24 1,000 mcg tablet lisinopril 30 mg tablet 30 mg PO DAILY #90 tabs 02/20/24 simvastatin 40 mg tablet 40 mg PO HS #90 tabs 02/20/24 ferrous sulfate 325 mg (65 mg 325 mg PO Q OTHER DAY 90 days #45 02/27/24 iron) tablet tabs Results & Data (ED) Vital Signs Vital Signs - 24 hr 06/14/24 19:56 06/14/24 20:42 06/14/24 20:44 Temperature Temperature Source Pulse Rate 52 L Pulse Rate [Right Finger] 57 L Pulse Rhythm [Right Finger] Regular Pulse Strength [Right Finger] Normal Respiratory Rate 16 Respiratory Effort / Characteristics Non-Labored Respiratory Depth Normal Respiratory Pattern Regular Blood Pressure [Right Arm] 201/69 H 173/68 H Blood Pressure Mean [Right Arm] 113 103 Blood Pressure Position [Right Arm] Lying Lying Pulse Oximetry 96 Oxygen Delivery Method Room Air EWS Level of Consciousness - Last Result EWS Temperature - Last Result EWS Respiratory Rate - Last Result EWS Oxygen Saturation - Last Result EWS Oxygen in Use - Last Result EWS Score EWS Clinical Risk 06/14/24 21:00 06/14/24 21:22 06/14/24 21:39 Temperature 36.6 C 36.8 C Temperature Source Oral Oral Pulse Rate Pulse Rate [Right Finger] 54 L 61 Pulse Rhythm [Right Finger] Regular Regular Pulse Strength [Right Finger] Normal Normal Respiratory Rate 19 22 Respiratory Effort / Characteristics Non-Labored Non-Labored Respiratory Depth Normal Normal Respiratory Pattern Regular Regular Blood Pressure [Right Arm] 188/78 H 113/97 Blood Pressure Mean [Right Arm] 114 102 Blood Pressure Position [Right Arm] Lying Sitting Pulse Oximetry 97 97 Oxygen Delivery Method Room Air Room Air EWS Level of Consciousness - Last Result EWS Temperature - Last Result EWS Respiratory Rate - Last Result EWS Oxygen Saturation - Last Result EWS Oxygen in Use - Last Result EWS Score EWS Clinical Risk 06/14/24 21:41 06/14/24 21:56 06/15/24 03:00 Temperature 36.9 C Temperature Source Oral Pulse Rate 58 L 63 Pulse Rate [Right Finger] 55 L Pulse Rhythm [Right Finger] Pulse Strength [Right Finger] Respiratory Rate 17 Respiratory Effort / Characteristics Respiratory Depth Respiratory Pattern Blood Pressure [Right Arm] 156/60 H Blood Pressure Mean [Right Arm] 92 Blood Pressure Position [Right Arm] Semi-fowlers Pulse Oximetry 95 Oxygen Delivery Method Room Air EWS Level of Consciousness - Last Result EWS Temperature - Last Result EWS Respiratory Rate - Last Result EWS Oxygen Saturation - Last Result EWS Oxygen in Use - Last Result EWS Score EWS Clinical Risk 06/15/24 03:00 06/15/24 08:02 06/15/24 08:08 Temperature 36.3 C L Temperature Source Oral Pulse Rate Pulse Rate [Right Finger] 68 Pulse Rhythm [Right Finger] Pulse Strength [Right Finger] Respiratory Rate 18 Respiratory Effort / Characteristics Respiratory Depth Respiratory Pattern Blood Pressure [Right Arm] 117/84 Blood Pressure Mean [Right Arm] 95 Blood Pressure Position [Right Arm] Semi-fowlers Pulse Oximetry 96 Oxygen Delivery Method Room Air EWS Level of Consciousness - Last Result Spontaneously Alert EWS Temperature - Last Result 36.8 EWS Respiratory Rate - Last Result 22 EWS Oxygen Saturation - Last Result 97 EWS Oxygen in Use - Last Result No EWS Score 2 EWS Clinical Risk Low Risk 06/15/24 11:58 06/15/24 12:01 06/15/24 12:07 Temperature 36.5 C Temperature Source Oral Pulse Rate Pulse Rate [Right Finger] 62 Pulse Rhythm [Right Finger] Pulse Strength [Right Finger] Respiratory Rate 18 Respiratory Effort / Characteristics Respiratory Depth Respiratory Pattern Blood Pressure [Right Arm] 179/74 H 181/80 H Blood Pressure Mean [Right Arm] 109 113 Blood Pressure Position [Right Arm] Sitting Sitting Pulse Oximetry 93 Oxygen Delivery Method Room Air EWS Level of Consciousness - Last Result Spontaneously Alert EWS Temperature - Last Result 36.5 EWS Respiratory Rate - Last Result 18 EWS Oxygen Saturation - Last Result 93 EWS Oxygen in Use - Last Result No EWS Score 2 EWS Clinical Risk Low Risk 06/15/24 13:34 06/15/24 14:30 Temperature Temperature Source Pulse Rate 67 Pulse Rate [Right Finger] Pulse Rhythm [Right Finger] Pulse Strength [Right Finger] Respiratory Rate Respiratory Effort / Characteristics Respiratory Depth Respiratory Pattern Blood Pressure [Right Arm] 118/47 L Blood Pressure Mean [Right Arm] 70 Blood Pressure Position [Right Arm] Lying Pulse Oximetry Oxygen Delivery Method EWS Level of Consciousness - Last Result EWS Temperature - Last Result EWS Respiratory Rate - Last Result EWS Oxygen Saturation - Last Result EWS Oxygen in Use - Last Result EWS Score EWS Clinical Risk Home Medications Current Medication List: was personally reviewed by me Laboratory Data Attestation: I reviewed the patient's lab results. 06/14/24 16:50 06/14/24 16:50 Lab Results 06/14/24 Range/Units 16:50 WBC 5.97 (4.8-10.8) K/ul RBC 4.57 (4.20-5.40) M/uL Hgb 13.4 (12.0-16.0) g/dl Hct 41.1 (37.0-47.0) % MCV 89.9 (80.0-100.0) fL MCH 29.3 (25.0-34.0) pg MCHC 32.6 (32.0-36.0) g/dL RDW Std Deviation 48.5 H (36.4-46.3) fL RDW Coeff of Nura 14.7 H (11.5-14.5) % Plt Count 147 (130-400) K/uL MPV 10.4 (9.4-12.4) fL Immature Gran % (Auto) 0.3 % Neut % (Auto) 66.6 % Lymph % (Auto) 23.1 % [place] % (Auto) 7.2 % Eos % (Auto) 2.3 % Baso % (Auto) 0.5 % Neut # (Auto) 3.97 (1.40-6.50) K/uL Lymph # (Auto) 1.38 (1.20-3.40) K/uL [place] # (Auto) 0.43 (0.11-0.59) K/uL Eos # (Auto) 0.14 (0.00-0.50) K/uL Baso # (Auto) 0.03 (0.00-0.20) K/uL Immature Gran # (Auto) 0.02 (0.01-0.20) K/uL Sodium 142 (136-145) mmol/L Potassium 4.6 (3.5-5.1) mmol/L Chloride 111 H (98-107) mmol/L Carbon Dioxide 25 (21-32) mmol/L Anion Gap 6 (3-11) BUN 28 H (6-23) mg/dl Creatinine 1.03 (0.6-1.2) mg/dl Est Cr Clr Drug Dosing 40.6 ml/min eGFR 52.95 BUN/Creatinine Ratio 27.2 H (10-20) Glucose 96 (70-99(Fasting)) mg/dl Calcium 9.6 (8.6-10.3) mg/dl Total Bilirubin 0.5 (0.2-1.0) mg/dl AST 19 (13-39) U/L ALT 13 (7-52) U/L Alkaline Phosphatase 54 (34-104) U/L Total Protein 6.4 (6.0-8.3) gm/dl Albumin 3.9 (3.4-5.0) gm/dl Globulin 2.5 (2.5-4.0) gm/dl Albumin/Globulin Ratio 1.6 (0.9-2) TSH 8.850 H (0.300-4.500) uIu/ml Free T4 0.91 (0.61-1.60) ng/dl Adenovirus (PCR) Not Detected (NotDetected) B. pertussis DNA (PCR) Not Detected (NotDetected) B.parapertussis DNA PCR Not Detected (NotDetected) C. pneumoniae DNA (PCR) Not Detected (NotDetected) Coronavirus OC43 (PCR) Not Detected (NotDetected) Coronavirus HKU1 (PCR) Not Detected (NotDetected) Coronavirus 229E (PCR) Not Detected (NotDetected) SARS-CoV-2 (PCR) Not Detected (NotDetected) Coronavirus NL63 (PCR) Not Detected (NotDetected) Human Metapneumovir PCR Not Detected (NotDetected) Influenza Type A (PCR) Not Detected (NotDetected) Influenza Type B (PCR) Not Detected (NotDetected) M. pneumoniae (PCR) Not Detected (NotDetected) Parainfluenza 1 (PCR) Not Detected (NotDetected) Parainfluenza 2 (PCR) Not Detected (NotDetected) Parainfluenza 3 (PCR) Not Detected (NotDetected) Parainfluenza 4 (PCR) Not Detected (NotDetected) RSV (PCR) Not Detected (NotDetected) Entero/Rhino (PCR) Not Detected (NotDetected) Administered Medications Hydralazine HCl (Hydralazine Hcl 20 Mg/Ml Vial) 10 mg IV Q2H PRN PRN Reason: SBP > 180 or DBP > 110 Stop: 07/15/24 07:41 Last Admin: 06/15/24 12:11 Dose: 10 mg Documented By: MARTITA Lisinopril (Lisinopril 40 Mg Tab) 40 mg PO DAILY GUILLAUME Stop: 07/15/24 08:59 Last Admin: 06/15/24 08:03 Dose: 40 mg Documented By: MARTITA Simvastatin (Simvastatin 40 Mg Tab) 40 mg PO HS GUILLAUME Stop: 07/14/24 21:38 Last Admin: 06/14/24 23:06 Dose: Not Given Documented By: GTH Discontinued Medications Hydralazine HCl (Hydralazine Hcl 20 Mg/Ml Vial) 10 mg IV NOW STA Stop: 06/14/24 17:43 Last Admin: 06/14/24 17:47 Dose: 10 mg Documented By: CHRISTIN Lisinopril (Lisinopril 20 Mg Tab) 20 mg PO NOW STA Stop: 06/14/24 21:10 Last Admin: 06/14/24 21:20 Dose: 20 mg Documented By: CHRISTIN Imaging Data Radiologist's Impression: Head CT 06/14/24 15:52 EXAM: CT Head Without Intravenous Contrast INDICATION: Recent intracranial hemorrhage. TECHNIQUE: Axial computed tomography images of the head/brain without intravenous contrast. Sagittal and/or coronal reformats are provided. Sagittal and coronal reformatted images were created and reviewed. This CT exam was performed using one or more of the following dose reduction techniques: automated exposure control, adjustment of the mA and/or kV according to patient size, and/or use of iterative reconstruction technique. COMPARISON: 06/12/2024 FINDINGS: Limitations: None. Brain and extra-axial spaces: Very minimally improved left posterior convexity subarachnoid hemorrhage noted. Mild cortical atrophy and periventricular chronic small vessel ischemic changes noted. No subdural hemorrhage. Bones/joints: No acute changes. Soft tissues: No significant abnormality noted. Vasculature: No acute abnormality noted. Sinuses: No layering fluid in the visualized portions of the paranasal sinuses. Mastoid air cells: No mastoid effusion. Orbits: No significant abnormality noted. IMPRESSION: Very minimally improved left posterior convexity subarachnoid hemorrhage noted. ACT 112: Negative or not required by law. Electronically signed by Roxanne Breen 06-14-2024 4:08 PM Discharge Plan Visit Data Chief Complaint: Stroke/CVA Symptoms Stated Complaint: LOSS FEELING IN LEGS, HAD STROKE THURS ED Provider: Carlos Bright Discharge Problem: Hypertensive urgency, History of subarachnoid hemorrhage Patient Disposition: Admitted As Inpatient Discharge Instructions Interventions: ED Discharge Assessment Last Done: 06/14/24 21:22
[2024-06-14 17:05] LABS: Basophils # (auto) 0.03 K/uL (0.00-0.20); Basophils % (auto) 0.5 %; Eosinophils # (auto) 0.14 K/uL (0.00-0.50); Eosinophils % (auto) 2.3 %; Hematocrit (blood only) 41.1 % (37.0-47.0); Hemoglobin 13.4 g/dl (12.0-16.0); Immature Granulocytes # (auto) 0.02 K/uL (0.01-0.20); Immature Granulocytes % (auto) 0.3 %; Lymphocytes # (auto) 1.38 K/uL (1.20-3.40); Lymphocytes % (auto) 23.1 %; Mean Corpuscular Hemoglobin 29.3 pg (25.0-34.0); Mean Corpuscular Hgb Conc 32.6 g/dL (32.0-36.0); Mean Corpuscular Volume 89.9 fL (80.0-100.0); Mean Platelet Volume 10.4 fL (9.4-12.4); Monocytes # (auto) 0.43 K/uL (0.11-0.59); Monocytes % (auto) 7.2 %; Neutrophils # (auto) 3.97 K/uL (1.40-6.50); Neutrophils % (auto) 66.6 %; Platelet Count 147 K/uL (130-400); RDW Coefficient of Variation 14.7 % (11.5-14.5); RDW Standard Deviation 48.5 fL (36.4-46.3); Red Blood Count 4.57 M/uL (4.20-5.40); White Blood Count 5.97 K/ul (4.8-10.8)
[2024-06-14 17:22] LABS: Albumin Globulin Ratio 1.6 (0.9-2); Albumin Level 3.9 gm/dl (3.4-5.0); BUN Creatinine Ratio 27.2 (10-20); Bilirubin,Total 0.5 mg/dl (0.2-1.0); Calcium 9.6 mg/dl (8.6-10.3); Creatinine Clr Calc Pharmacy 40.6 ml/min; Globulin 2.5 gm/dl (2.5-4.0); Potassium 4.6 mmol/L (3.5-5.1); Total Protein 6.4 gm/dl (6.0-8.3)
[2024-06-14 17:38] LABS: Thyroid Stimulating Hormone 8.85 uIu/ml (0.300-4.500)
[2024-06-14] MEDS: hydrALAZINE HCL 20 MG/ML VIAL IV STA (17:47)
--- NOTE | 2024-06-14 17:47 | XRay Report ---
EXAM: Radiograph of the Chest 1 View INDICATION: Weakness. TECHNIQUE: Frontal view of the chest. COMPARISON: 02/23/2020 FINDINGS: Lungs and pleural spaces: Stable mild left basilar pleural scarring. No effusion or pneumothorax. No consolidation or pulmonary edema. Heart: Stable cardiomegaly. Mediastinum: Normal contour. Bones/joints: No fracture, erosion or dislocation. Soft tissues: No abnormality noted. No radiopaque foreign body noted. Upper abdomen: No abnormality noted. IMPRESSION: No acute cardiopulmonary disease. ACT 112: Negative or not required by law. Electronically signed by Roxanne Breen 06-14-2024 5:47 PM
[2024-06-14 17:48] LABS: Adenovirus PCR Not Detected (NotDetected); Bordetella parapertussis PCR Not Detected (NotDetected); Bordetella pertussis PCR Not Detected (NotDetected); Chlamydia pneumoniae PCR Not Detected (NotDetected); Coronavirus 229E PCR Not Detected (NotDetected); Coronavirus CoV-2 (COVID19)PCR Not Detected (NotDetected); Coronavirus HKU1 PCR Not Detected (NotDetected); Coronavirus NL63 PCR Not Detected (NotDetected); Coronavirus OC43PCR Not Detected (NotDetected); Human Metapneumovirus PCR Not Detected (NotDetected); Influenza A PCR Not Detected (NotDetected); Influenza B PCR Not Detected (NotDetected); Mycoplasma pneumoniae PCR Not Detected (NotDetected); Parainfluenza Virus 1 PCR Not Detected (NotDetected); Parainfluenza Virus 2 PCR Not Detected (NotDetected); Parainfluenza Virus 3 PCR Not Detected (NotDetected); Parainfluenza Virus 4 PCR Not Detected (NotDetected); Respiratory Syncytial VirusPCR Not Detected (NotDetected); Rhinovirus/Enterovirus PCR Not Detected (NotDetected)
[2024-06-14 18:13] LABS: T4 Free Thyroxine 0.91 ng/dl (0.61-1.60)
--- NOTE | 2024-06-14 20:33 | History & Physical Report ---
Date of Service June 14, 2024 Assessment & Plan (1) Leg weakness: Plan: 84yo female with HTN, recent subarachnoid hemorrhage managed at [facility] returning with episode of bilateral LE weakness and inability to walk. This occurred after driving home from [place]. Patient confused during the event as well. Now improved, no deficits noted on neurologic exam. Etiology unclear? CT of the head with mild improvement in patient's known SAH -Admit to medical with telemetry -Neuro checks q 4 hours -PT/OT evaluation -Fall precautions (2) SAH (subarachnoid hemorrhage): Plan: Patient with recent hypertensive emergency presenting with confusion, found to have small left parietal SAH. She was managed conservatively at [facility]. MRI of the brain obtained with findings suggestive of cerebral amyloid angiopathy. Her ASA was discontinued. Statin and Lisinopril continued. Her son reports very labile blood pressure. Patient has longstanding history of HTN and has been on Lisinopril 30mg po daily for many years. She does not monitor her blood pressure at home anymore but does have a home cuff. -Neuro checks as above -Blood pressure q 4 hours to assess trend -Goal blood pressure < 160mmhg -Will increase Lisinopril to 40mg po daily -Hydralazine 10mg po TID PRN BP > 160/100 -Low threshold for stat re-imaging of brain should patient develop any neurologic symptoms (3) Hypertension: Plan: Patient with labile blood pressures. -Hydralazine PRN -Increase Lisinopril to 40mg po daily -Closely monitor (4) Hypercholesteremia: Plan: Chronic -Continue Simvastatin History of Present Illness Chief Complaint: leg weakness Primary Care Provider: DO Maxine Dennis Martin is an 84yo female with history of HTN presenting with episode of bilateral leg weakness. Patient was seen in our ER on 06/12/24 after presenting with acute confusion and hypertensive emergency BP 229/72. She had a CT of the head which revealed mild left posterior convexity SAH, unremarkable angiography. Patient was started on a Nicardipine drip and transferred to [facility]. Family states that at [place] she had repeat CT which showed stable/improving SAH, CTA without aneurysm. MRI of the brain was performed with findings suggestive of cerebral amyloid angiopathy. Patient was managed in the ICU and was discharged home today around 14:30. Patient's son drove her home from [place]. When they got to the house she was unable to get out of the car. She had some mild confusion and states that she "didn't feel like her feet were on the ground". She felt a though her legs would not work and was unable to stand up by herself. Her son put her back in the car and brought her to [facility] ER. Patient with no additional complaints. She denies headache, neck pain, confusion, visual changes, numbness/weakness. No chest pain, palpitations, abdominal pain, nausea, vomiting or diarrhea. Patient was seen by PT/OT while in [place] and was able to get up and walk around without difficulty. She was discharged home with no need for continued therapy services. Active and lives independently. In the ER patient has had variable blood pressures ranging 162-201 / 59-78 ER Course: Hydralazine 10mg IV Lisinopril 20mg PO Allergies Allergy/AdvReac Type Severity Reaction Status Date / Time Penicillins Allergy Unknown HAPPENED Verified 04/02/24 07:51 50 YEARS AGO. Home Medications Medication Instructions Recorded Confirmed Type cyanocobalamin (vitamin B-12) 1,000 mcg PO DAILY #90 tabs 02/20/24 06/14/24 Rx 1,000 mcg tablet lisinopril 30 mg tablet 30 mg PO DAILY #90 tabs 02/20/24 06/14/24 Rx simvastatin 40 mg tablet 40 mg PO HS #90 tabs 02/20/24 06/14/24 Rx ferrous sulfate 325 mg (65 mg 325 mg PO Q OTHER DAY 90 days #45 02/27/24 06/14/24 Rx iron) tablet tabs ergocalciferol (vitamin D2) 1,250 1,250 mcg PO WK 06/14/24 06/14/24 History mcg (50,000 unit) capsule estradiol 0.01% (0.1 mg/gram) 1 g vaginal WK 06/14/24 06/14/24 History vaginal cream Past Med/Surg History Problem List (Updated 06/14/24 @ 21:51 by Amy Jackson DO) Leg weakness Stroke-like symptoms (Acute) Hypertensive emergency (Acute) Acute confusion (Acute) SAH (subarachnoid hemorrhage) (Acute) Macrocytic anemia with vitamin B12 deficiency Anemia Hypercholesteremia (Chronic) Hypertension (Chronic) Vitamin D deficiency (Chronic) Osteopenia Urge incontinence (Acute) Rosacea (Acute) Prolapse of vaginal meza (Acute) Prolapsed bladder Positive Lyme disease serology Chronic kidney disease, stage 3a Obesity (BMI 30.0-34.9) Pessary maintenance Melanoma (~08/2020) right forearm, resected Medical History Hypertensive emergency Vision blurring Headache Menopause Vitamin D deficiency Hypertension Surgical History History of colonoscopy (~07/29/09) History of dilation and curettage History of tooth extraction Family History Sister Malignant melanoma Mother Hypertension Diabetes Cardiac disorder from acute [place] age 64 Father Lung cancer age 78 Tobacco use Brother Kidney stone Brother Aortic aneurysm Sister Cancer Denies family history of Colon cancer Breast cancer Social History Smoking Status: Never smoker Second Hand Exposure: No; Do You Dip or Chew Tobacco: No; Hx Alcohol Use: No Hx Substance Use: No Preferred Language: American Communication Ability: Effective Visual Impairment: No Limitations Hearing Ability: Normal Actuarial Science Teacher Required: No Beliefs That Will Affect Care: None marital status: Current Living Situation: Alone current occupational status: 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 How many Children do You have: 2 How many Children do You have Comment: sons other: lives in [place] Feels Safe at Home: Yes Childhood Exposure to Second-Hand Smoke: Yes Diet: regular caffeine: Yes Dental Care, Regularly: No Physical Activity Frequency: Daily Seatbelt Use: always Sunscreen Use: Yes Assistive Devices: None Review of Systems Review of Systems: All systems reviewed & are unremarkable except as noted in HPI & below Physical Exam Physical Exam: General: patient resting comfortably, NAD, non-toxic in appearance, AA&O x 4 Skin: warm, dry, intact, no rashes or lesions HEENT: NC/AT, PERRL, EOMI, anicteric sclera, conjunctiva without injection, external ear normal to inspection and nontender, nares patent, moist mucus membranes, dentition intact, no oropharyngeal lesions, neck supple, trachea midline, no LAD, no thyromegaly, no JVD Heart: +S1/S2, regular, no m/r/g Lungs: equal air entry bilaterally, no rales/rhonchi/wheezes Abd: +BS, soft, NT/ND, no masses/organomegaly/ascites Ext: warm, 2+ pulses in UE/LE bilaterally, no clubbing/cyanosis or edema Neuro: nonfocal, patient AA&O x 4, speech intact, no facial droop, moving all extremities on command with equal strength 5/5 Bilateral LE sensation and strength intact, reflexes intact Results & Data Results & Data Vital Signs (Past 12 Hours) Vital Signs Temp Pulse Pulse Resp BP BP Pulse Ox 06/14/24 19:56 52 L 06/14/24 18:45 63 22 146/59 H 97 06/14/24 17:42 51 L 15 195/67 H 97 06/14/24 17:40 52 L 18 187/75 H 06/14/24 16:33 94 06/14/24 16:08 53 L 15 164/65 H 96 06/14/24 15:58 53 L 06/14/24 15:44 36.4 C L 54 L 20 162/64 H 95 O2 Del Method 06/14/24 19:56 06/14/24 18:45 Room Air 06/14/24 17:42 Room Air 06/14/24 17:40 06/14/24 16:33 Room Air 06/14/24 16:08 Room Air 06/14/24 15:58 06/14/24 15:44 Room Air Laboratory Results Laboratory Results WBC 5.97 K/ul (4.8-10.8) 06/14/24 16:50 RBC 4.57 M/uL (4.20-5.40) 06/14/24 16:50 Hgb 13.4 g/dl (12.0-16.0) 06/14/24 16:50 Hct 41.1 % (37.0-47.0) 06/14/24 16:50 MCV 89.9 fL (80.0-100.0) 06/14/24 16:50 MCH 29.3 pg (25.0-34.0) 06/14/24 16:50 MCHC 32.6 g/dL (32.0-36.0) 06/14/24 16:50 RDW Std Deviation 48.5 fL (36.4-46.3) H 06/14/24 16:50 RDW Coeff of Nura 14.7 % (11.5-14.5) H 06/14/24 16:50 Plt Count 147 K/uL (130-400) 06/14/24 16:50 MPV 10.4 fL (9.4-12.4) 06/14/24 16:50 Immature Gran % (Auto) 0.3 % 06/14/24 16:50 Neut % (Auto) 66.6 % 06/14/24 16:50 Lymph % (Auto) 23.1 % 06/14/24 16:50 Crenshaw % (Auto) 7.2 % 06/14/24 16:50 Eos % (Auto) 2.3 % 06/14/24 16:50 Baso % (Auto) 0.5 % 06/14/24 16:50 Neut # (Auto) 3.97 K/uL (1.40-6.50) 06/14/24 16:50 Lymph # (Auto) 1.38 K/uL (1.20-3.40) 06/14/24 16:50 Crenshaw # (Auto) 0.43 K/uL (0.11-0.59) 06/14/24 16:50 Eos # (Auto) 0.14 K/uL (0.00-0.50) 06/14/24 16:50 Baso # (Auto) 0.03 K/uL (0.00-0.20) 06/14/24 16:50 Immature Gran # (Auto) 0.02 K/uL (0.01-0.20) 06/14/24 16:50 Sodium 142 mmol/L (136-145) 06/14/24 16:50 Potassium 4.6 mmol/L (3.5-5.1) 06/14/24 16:50 Chloride 111 mmol/L (98-107) H 06/14/24 16:50 Carbon Dioxide 25 mmol/L (21-32) 06/14/24 16:50 Anion Gap 6 (3-11) 06/14/24 16:50 BUN 28 mg/dl (6-23) H 06/14/24 16:50 Creatinine 1.03 mg/dl (0.6-1.2) 06/14/24 16:50 Est Cr Clr Drug Dosing 40.6 ml/min 06/14/24 16:50 eGFR 52.95 06/14/24 16:50 BUN/Creatinine Ratio 27.2 (10-20) H 06/14/24 16:50 Glucose 96 mg/dl (70-99(Fasting)) 06/14/24 16:50 Calcium 9.6 mg/dl (8.6-10.3) 06/14/24 16:50 Total Bilirubin 0.5 mg/dl (0.2-1.0) 06/14/24 16:50 AST 19 U/L (13-39) 06/14/24 16:50 ALT 13 U/L (7-52) 06/14/24 16:50 Alkaline Phosphatase 54 U/L (34-104) 06/14/24 16:50 Total Protein 6.4 gm/dl (6.0-8.3) 06/14/24 16:50 Albumin 3.9 gm/dl (3.4-5.0) 06/14/24 16:50 Globulin 2.5 gm/dl (2.5-4.0) 06/14/24 16:50 Albumin/Globulin Ratio 1.6 (0.9-2) 06/14/24 16:50 TSH 8.850 uIu/ml (0.300-4.500) H 06/14/24 16:50 Free T4 0.91 ng/dl (0.61-1.60) 06/14/24 16:50 Adenovirus (PCR) Not Detected (NotDetected) 06/14/24 16:50 B. pertussis DNA (PCR) Not Detected (NotDetected) 06/14/24 16:50 B.parapertussis DNA PCR Not Detected (NotDetected) 06/14/24 16:50 C. pneumoniae DNA (PCR) Not Detected (NotDetected) 06/14/24 16:50 Coronavirus OC43 (PCR) Not Detected (NotDetected) 06/14/24 16:50 Coronavirus HKU1 (PCR) Not Detected (NotDetected) 06/14/24 16:50 Coronavirus 229E (PCR) Not Detected (NotDetected) 06/14/24 16:50 SARS-CoV-2 (PCR) Not Detected (NotDetected) 06/14/24 16:50 Coronavirus NL63 (PCR) Not Detected (NotDetected) 06/14/24 16:50 Human Metapneumovir PCR Not Detected (NotDetected) 06/14/24 16:50 Influenza Type A (PCR) Not Detected (NotDetected) 06/14/24 16:50 Influenza Type B (PCR) Not Detected (NotDetected) 06/14/24 16:50 M. pneumoniae (PCR) Not Detected (NotDetected) 06/14/24 16:50 Parainfluenza 1 (PCR) Not Detected (NotDetected) 06/14/24 16:50 Parainfluenza 2 (PCR) Not Detected (NotDetected) 06/14/24 16:50 Parainfluenza 3 (PCR) Not Detected (NotDetected) 06/14/24 16:50 Parainfluenza 4 (PCR) Not Detected (NotDetected) 06/14/24 16:50 RSV (PCR) Not Detected (NotDetected) 06/14/24 16:50 Entero/Rhino (PCR) Not Detected (NotDetected) 06/14/24 16:[address] 06/14/24 15:52 EXAM: CT Head Without Intravenous Contrast INDICATION: Recent intracranial hemorrhage. TECHNIQUE: Axial computed tomography images of the head/brain without intravenous contrast. Sagittal and/or coronal reformats are provided. Sagittal and coronal reformatted images were created and reviewed. This CT exam was performed using one or more of the following dose reduction techniques: automated exposure control, adjustment of the mA and/or kV according to patient size, and/or use of iterative reconstruction technique. COMPARISON: 06/12/2024 FINDINGS: Limitations: None. Brain and extra-axial spaces: Very minimally improved left posterior convexity subarachnoid hemorrhage noted. Mild cortical atrophy and periventricular chronic small vessel ischemic changes noted. No subdural hemorrhage. Bones/joints: No acute changes. Soft tissues: No significant abnormality noted. Vasculature: No acute abnormality noted. Sinuses: No layering fluid in the visualized portions of the paranasal sinuses. Mastoid air cells: No mastoid effusion. Orbits: No significant abnormality noted. IMPRESSION: Very minimally improved left posterior convexity subarachnoid hemorrhage noted. ACT 112: Negative or not required by law. Electronically signed by Roxanne Breen 06-14-2024 4:08 PM Chest X-Ray 06/14/24 16:17 EXAM: Radiograph of the Chest 1 View INDICATION: Weakness. TECHNIQUE: Frontal view of the chest. COMPARISON: 02/23/2020 FINDINGS: Lungs and pleural spaces: Stable mild left basilar pleural scarring. No effusion or pneumothorax. No consolidation or pulmonary edema. Heart: Stable cardiomegaly. Mediastinum: Normal contour. Bones/joints: No fracture, erosion or dislocation. Soft tissues: No abnormality noted. No radiopaque foreign body noted. Upper abdomen: No abnormality noted. IMPRESSION: No acute cardiopulmonary disease. ACT 112: Negative or not required by law. Electronically signed by Roxanne Breen 06-14-2024 5:47 PM Code Status & VTE Plan VTE Prophylaxis Plan VTE Prophylaxis will be ordered: Yes PG Care Time/CCT Total # of Minutes Spent Total Time Spent with Patient: Total time spent is greater than 50% in coordination of care (as documented) at patient's floor/unit and/or counseling patient: Coding Level of Care Code 37903 INT INP/OBS CARE 3/75MIN Diagnoses Leg weakness R29.898 SAH (subarachnoid hemorrhage) I60.9 Essential hypertension I10 Hypertension type: essential hypertension Hypercholesteremia E78.00 (3) Hypertension Hypertension type: essential hypertension Qualified Code(s): I10 - Essential (primary) hypertension
[2024-06-14] MEDS: lisinopril 20 MG TAB PO STA (21:20)
[2024-06-14] MEDS ORDERED: ONDANSETRON INJ 2 MG/ML 2 ML VIAL IV PRN (21:39)
[2024-06-14] MEDS ORDERED: ACETAMINOPHEN 325 MG TAB PO PRN (21:39)
[2024-06-14] MEDS ORDERED: hydrALAZINE 10 MG TAB PO PRN (21:39)
[2024-06-14] MEDS: SIMVASTATIN 40 MG TAB PO SCH (23:06)
[2024-06-15] MEDS: lisinopril 40 MG TAB PO SCH (08:03)
--- NOTE | 2024-06-15 10:32 | Hospitalist Progress Note ---
Date of Service June 15, 2024 Assessment & Plan (1) Leg weakness: Plan: Bilateral with ambulatory dysfunction. This occurred after return from [facility] in [place]. She recently suffered a subarachnoid hemorrhage but had no surgical intervention while at [facility]. Continue supportive care. OT and PT evaluations. (2) SAH (subarachnoid hemorrhage): Plan: Recent occurrence. Suspected due to elevated blood pressure. Lisinopril has been increased to 40 mg daily. Will repeat head CT scan again tomorrowJune 16 (3) Hypertension: Plan: Lisinopril has been uptitrated to 40 mg daily. Intravenous hydralazine as needed. (4) Hypercholesteremia: Plan: Stable. Continue Simvastatin Plan Hopeful discharge to home tomorrowJune 16 Admission and Anticipated Discharge Date Admission Date: June 14, 2024 Subjective Alert and oriented. No distress. Awaiting OT and PT evaluations to be completed. Will repeat head CT scan tomorrow, June 16. Hopefully she can go home on June 16 Review of Systems 2 Review of Systems: Constitutionalno fever or chills ENTno blurred vision, no double vision, no epistaxis, no sore throat Respiratoryno cough, no wheezing, no shortness of breath Cardiacno palpitations, no chest pain, no syncope Mario nausea, vomiting, diarrhea, melena, hematochezia GUno urinary retention, no urinary incontinence, no dysuria, no hematuria Musculoskeletalno joint pain, no muscle tenderness Skinno bruising, no rashes, no pruritus Neurobilateral leg weakness with ambulatory dysfunction occurred upon return from [facility] in [place]. No focal deficits Psych no depression, no anxiety Physical Exam 2 Physical Exam: General-alert and oriented x3, no fever, no chills HEENT-head atraumatic and normocephalic, pupils equal and reactive to light, extraocular muscles intact Neck-no lymphadenopathy or thyromegaly, trachea midline Chest-clear to auscultation. No rales, wheezing or rhonchi Cardiac-regular rate and rhythm, normal S1 and S2 Abdomen-normal bowel sounds, no hepatosplenomegaly Extremities-no cyanosis, clubbing, or edema Neuro-cranial nerves II through XII intact, motor and sensory function within normal limits, strength symmetrical, no focal deficits Psych-normal affect, normal mood Results & Data Results & Data Vital Signs (Past 12 Hours) Vital Signs Temp Pulse Resp BP Pulse Ox O2 Del Method 06/15/24 08:08 36.3 C L 68 18 96 Room Air 06/15/24 08:02 117/84 06/15/24 03:00 36.9 C 55 L 17 156/60 H 95 Room Air Laboratory Results 06/14/24 16:50 06/14/24 16:50 PG Care Time/CCT Total # of Minutes Spent Total Time Spent with Patient: Total time spent is greater than 50% in coordination of care (as documented) at patient's floor/unit and/or counseling patient: Coding Level of Care Code 03723 SUB INP/OBS CARE 3/50MIN Diagnoses Leg weakness R29.898 SAH (subarachnoid hemorrhage) I60.9 Essential hypertension I10 Hypertension type: essential hypertension Hypercholesteremia E78.00 (3) Hypertension Hypertension type: essential hypertension Qualified Code(s): I10 - Essential (primary) hypertension
[2024-06-15] MEDS: hydrALAZINE HCL 20 MG/ML VIAL IV PRN (12:11)
--- NOTE | 2024-06-15 12:12 | Electrocardiogram Report ---
Test Reason : Blood Pressure : */* mmHG Vent. Rate : 50 BPM Atrial Rate : 50 BPM P-R Int : 152 ms QRS Dur : 88 ms QT Int : 456 ms P-R-T Axes : 46 -4 211 degrees QTcB Int : 415 ms Sinus bradycardia Left ventricular hypertrophy with repolarization abnormality ( R in aVL ) Cannot rule out Septal infarct , age undetermined Abnormal ECG When compared with ECG of 12-Jun-2024 11:46, Minimal criteria for Septal infarct are now Present Confirmed by Asael Snyder ([id number]) on 06/15/2024 12:11:32 PM Referred By: REFERRED SELF Confirmed By: Asael Snyder
[2024-06-15 15:16] LABS: Appearance Urine Cloudy (Clear); Bacteria Urine Automated None Seen (None Seen); Bilirubin Urine Negative (Negative); Blood Urine Negative (Negative); Cast Urine Automated 0-2 /lpf (0-2); Color Urine Yellow; Glucose Urine UA Negative (Negative); Ketones Urine Negative (Negative); Leukocyte Esterase Urine 2+ (Negative); Nitrite Urine Negative (Negative); Protein Urine Negative (Negative); RBC Urine Automated 0-2 /hpf (0-2); Specific Gravity Urine 1.015 (1.000-1.030); Urobilinogen Urine Negative (Negative); pH Urine 5.5 (4.5-7.5)
[2024-06-16 06:55] LABS: Basophils # (auto) 0.05 K/uL (0.00-0.20); Basophils % (auto) 0.8 %; Eosinophils # (auto) 0.16 K/uL (0.00-0.50); Eosinophils % (auto) 2.5 %; Hematocrit (blood only) 38.1 % (37.0-47.0); Hemoglobin 12.6 g/dl (12.0-16.0); Immature Granulocytes # (auto) 0.01 K/uL (0.01-0.20); Immature Granulocytes % (auto) 0.2 %; Lymphocytes # (auto) 1.24 K/uL (1.20-3.40); Lymphocytes % (auto) 19.4 %; Mean Corpuscular Hemoglobin 29.5 pg (25.0-34.0); Mean Corpuscular Hgb Conc 33.1 g/dL (32.0-36.0); Mean Corpuscular Volume 89.2 fL (80.0-100.0); Mean Platelet Volume 10.8 fL (9.4-12.4); Monocytes # (auto) 0.51 K/uL (0.11-0.59); Neutrophils # (auto) 4.41 K/uL (1.40-6.50); Neutrophils % (auto) 69.1 %; Platelet Count 197 K/uL (130-400); RDW Coefficient of Variation 14.4 % (11.5-14.5); RDW Standard Deviation 46.6 fL (36.4-46.3); Red Blood Count 4.27 M/uL (4.20-5.40); White Blood Count 6.38 K/ul (4.8-10.8)
[2024-06-16 07:11] LABS: BUN Creatinine Ratio 24.5 (10-20); Calcium 9.2 mg/dl (8.6-10.3); Creatinine Clr Calc Pharmacy 42.8 ml/min; Potassium 4.2 mmol/L (3.5-5.1)
--- NOTE | 2024-06-16 08:17 | CT Scan Report ---
EXAM: CT head/brain wo con CLINICAL HISTORY: follow up left subarachnoid hemorrhage jr/bm TECHNIQUE: An axial non-contrast CT scan of the brain was performed from the skull base to the high parietal region. One of the following dose reduction techniques were utilized for this exam: Automated exposure control, adjustment of the mA and/or kV according to patient size, and use of iterative reconstruction. CTDI 40.39, total DLP 580.53 mGy.cm. COMPARISON: 06/14/2024 FINDINGS: Brain Parenchyma: Still noted left high parietal CSF smearing with hyperdense fresh blood density. There are diffuse ill-defined [id number] areas noted in the subcortical white matter bilaterally, suggestive of microvascular ischemic changes. Normal attenuation of the cerebellum, and brainstem. No evidence of mass effect. Ventricular System: The ventricular system, cortical sulci and basal cisterns are prominent and consistent with senile changes. Sinuses: Clear paranasal sinuses. No evidence of sinusitis or mucosal thickening. Mastoid Air Cells: Clear mastoid air cells. No evidence of mastoiditis. Skull and Meninges: Normal skull morphology. IMPRESSION: 1. Rather stationary left high parietal CSF smearing with hyperdense fresh blood density of likely focal subarachnoid hemorrhage. 2. Unchanged rest of the study. [facility] was called at [phone] at 7:09 AM [employer] [place], 06/16/2024 and Leslie (Nurse) was informed regarding the presence of important medical findings in the report. Electronically signed by Honey Marroquin 06-16-2024 08:17 AM
[2024-06-16 11:29] VITALS: BP 147/86; PULSE 59; RESP 20; TEMP 98.1; O2SAT 96
--- NOTE | 2024-06-16 13:42 | Discharge Summary ---
Discharge Summary Date of Service June 16, 2024 Principal Dx & Hospital Course #1 = Principal Diagnosis (1) Leg weakness: Bilateral with ambulatory dysfunction. This occurred after return from [facility] in [place]. She recently suffered a subarachnoid hemorrhage but had no surgical intervention while at [facility]. Repeat CT head x 2 here serially show no change in SAH On day of discharge, she was independently ambulating and felt well. No headache, no focal neuro deficits. No events on tele BPs had been quite high on admission and are now better controlled with increased dose of lisinopril Stable for dc to home and will have Neuro f/u in 4-6 weeks as planned (2) SAH (subarachnoid hemorrhage): Recent occurrence. 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 Lisinopril has been increased to 40 mg daily [address]able on [address] head as above (3) Hypertension: Lisinopril has been uptitrated to 40 mg daily and now improved continue this and could add amlodipine or HCTZ as outpt if needed recommended checking BPs at home to her son on phone and if consistently >140/90, would contact PCP for additional medication (4) Hypercholesteremia: Stable. Continue Simvastatin Plan Dispo-dc to home Discussed care with son pn phone at patient's request on day of discharge Notes For Next Care Provider May need additional BP med Medication Changes From Visit Increased lisinopril to 40mg po daily Admission HPI Per Admitting Provider Maxine Salazar is an 84yo female with history of HTN presenting with episode of bilateral leg weakness. Patient was seen in our ER on 06/12/24 after presenting with acute confusion and hypertensive emergency BP 229/72. She had a CT of the head which revealed mild left posterior convexity SAH, unremarkable angiography. Patient was started on a Nicardipine drip and transferred to [facility]. Family states that at [place] she had repeat CT which showed stable/improving SAH, CTA without aneurysm. MRI of the brain was performed with findings suggestive of cerebral amyloid angiopathy. Patient was managed in the ICU and was discharged home today around 14:30. Patient's son drove her home from [place]. When they got to the house she was unable to get out of the car. She had some mild confusion and states that she "didn't feel like her feet were on the ground". She felt a though her legs would not work and was unable to stand up by herself. Her son put her back in the car and brought her to [facility] ER. Patient with no additional complaints. She denies headache, neck pain, conf usion, visual changes, numbness/weakness. No chest pain, palpitations, abdominal pain, nausea, vomiting or diarrhea. Patient was seen by PT/OT while in [place] and was able to get up and walk around without difficulty. She was discharged home with no need for continued therapy services. Active and lives independently. In the ER patient has had variable blood pressures ranging 162-201 / 59-78 ER Course: Hydralazine 10mg IV Lisinopril 20mg PO Discharge Exam Constitutional WD/WN, vitals as above Eyes PERRL, conjunctivae normal, anicteric sclerae ENMT external ear and nose normal, oropharynx normal Neck trachea midline, no thyromegaly Respiratory normal respiratory effort, lungs clear to auscultation Cardiovascular RRR, no murmur, no edema Chest (Breasts) Chest: normal inspection of chest Gastrointestinal (Abdomen) normal bowel sounds, soft, nontender, no hepatosplenomegaly Musculoskeletal Extremities: extremities normal to inspection; no cyanosis and no clubbing Skin no rashes, warm and dry Neurologic moves all extremities and awake; no focal motor deficits Gait: no ataxic gait and not gait assisted Psychiatric A+Ox3, euthymic affect Lymphatic no lymphedema Discharge Plan Discharge Items Patient Disposition: Home - Self-Care Reason For Visit: LEG WEAKNESS, RECENT SAH Discharge Diagnosis: Ambulatory dysfunction Recent subarachnoid hemorrhage Subclinical hypothyroidism Condition on Discharge: Good Activity: Resume your previous activity Driving/Machine Use: No driving until seen by Neurology Non-emergency contact: Primary Care Provider and Neurologist Call non-emergency contact if: you have any medication questions, your symptoms worsen and your pain is not controlled Follow-up/Referrals: Donald Bhatti, [Primary Care Provider] - (Follow up within 1-2 weeks) Diet: Heart Healthy Addtl Attending Provider Instructions: You were admitted with difficulty walking after having a recent brain hemorrhage. This improved and your repeat head CT scans showed no worsening of your bleeding in the brain. Your blood pressure was high and your lisinopril dose was increased to 40mg daily. Please keep your follow up appointments with PCP and with Neurology from [facility]. Your thyroid function was slightly out of range and your PCP should recheck your thyroid function in a few weeks to ensure it is back to normal after your recent hospitalization. If you develop a headache, have trouble with your speech, have weakness,falls, increased fatigue, or pass out, please return to the hospital right away as these can be signs/symptoms of another brain bleed. Pending Studies at Discharge: No Stand-Alone Forms: [facility], Smoking Cessation Medications and DC Order Prescriptions: New lisinopril [Zestril] 40 mg Tablet 40 mg PO DAILY Qty: 30 0RF Continued ferrous sulfate 325 mg (65 mg iron) tablet 325 mg PO Q OTHER DAY 90 Days Qty: 45 3RF Rx Instructions: every other evening cyanocobalamin (vitamin B-12) 1,000 mcg tablet 1,000 mcg PO DAILY Qty: 90 3RF simvastatin 40 mg tablet 40 mg PO HS Qty: 90 3RF ergocalciferol (vitamin D2) 1,250 mcg (50,000 unit) capsule 1,250 mcg PO WK Rx Instructions: TAKE 1 CAPSULE ONCE PER WEEK estradiol 0.01 % (0.1 mg/gram) cream 1 g vaginal WK Rx Instructions: 1 g vaginal once weekly; Discontinued lisinopril 30 mg tablet 30 mg PO DAILY Qty: 90 3RF Discharge Orders: Discharge Order (Routine); Ordered 06/16/24 Ordered By: Urmila Narvaez Admission Data Admit Date/Time: 06/15/24 15:01 Attending Provider: Urmila Narvaez Admit Provider: Baldemar Ramos Primary Care Provider: Donald Bhatti Hospital Stay Data Diagnostic Imagining Performed 06/14/24 15:52 CT head/brain wo con Stat 06/16/24 07:00 CT head/brain wo con DAILY Pending Results Patient Have Any Pending Studies at Discharge: No Discharge Instructions Given to Patient (Per Discharging Provider) You were admitted with difficulty walking after having a recent brain hemorrhage. This improved and your repeat head CT scans showed no worsening of your bleeding in the brain. Your blood pressure was high and your lisinopril dose was increased to 40mg daily. Please keep your follow up appointments with PCP and with Neurology from [facility]. Your thyroid function was slightly out of range and your PCP should recheck your thyroid function in a few weeks to ensure it is back to normal after your recent hospitalization. If you develop a headache, have trouble with your speech, have weakness,falls, increased fatigue, or pass out, please return to the hospital right away as these can be signs/symptoms of another brain bleed. Total Time Total Time Spent Total Time Spent (In Minutes): 35 min Total Time Includes: Examination of the Patient, Discharge Planning and Medication Reconciliation Coding Level of Care Code 64580 INP/OBS DISCH >30 MIN Diagnoses Leg weakness R29.898 SAH (subarachnoid hemorrhage) I60.9 Essential hypertension I10 Hypertension type: essential hypertension Hypercholesteremia E78.00
== END 2024-06-16 14:10 | disposition home or self-care (01) | DRG 555 ==
LOC: 2E 15:41 → ED 15:41 → SUATTDRO 20:33 → 2E 21:22 → SUATTDRO 06-15 15:01

== ENCOUNTER 2024-09-28 09:01 | Observation (INO) ==
--- NOTE | 2024-09-28 09:25 | Emergency Department Note ---
Impression & Plan Chest pain, Hypertension, Weakness ED Provider Note NAME: SALVATORE PERLA AGE: 84 SEX: F : 1940 ARRIVES VIA: Walk-In INFORMANT: Patient ED PROVIDER(S): Samuel Adhikari DO CHIEF COMPLAINT: Hypertension HPI: Patient is an 84-year-old female who presents to the ER for feeling weak. She has had several episodes of this over the past several weeks. She notes that this morning she also had some chest tightness/pressure in the middle of her chest. This started around 6 AM she still has a little bit of it. She has been getting this off and on for the past several days. It is worse with exertion and improves with rest. No arm or jaw pain. No shortness of breath. No belly pain, nausea, vomiting, or diarrhea. No dysuria, urgency, or frequency. ADDITIONAL HISTORY OBTAINED: Son is present at bedside and provides additional history and notes that they have been following up with the hypertension clinic. Chronic Medical/Social Conditions Affecting Care: Per HPI PAST MEDICAL HISTORY:See Below PAST SURGICAL HISTORY:See Below FAMILY HISTORY:See Below SOCIAL HISTORY:See Below HOME MEDICATIONS:See Below ALLERGIES:See Below VITALS:See Below PHYSICAL EXAMINATION: GENERAL: Sitting up in bed, alert, well appearing, well nourished, no distress, non-toxic EYE EXAM: normal conjunctiva. OROPHARYNX: mucous membranes are moist NECK: supple, no nuchal rigidity, no adenopathy, non-tender LUNGS: Clear to auscultation. Normal chest wall mechanics HEART: no murmurs, S1 normal and S2 normal ABDOMEN: abdomen soft, non-tender, normo-active bowel sounds, no masses, no rebound or guarding. SKIN: no rashes and no bruising UPPER EXTREMITIES: upper extremities are grossly normal. LOWER EXTREMITIES: No pitting edema. NEURO EXAM: Normal sensorium, cranial nerves II-XII intact, normal speech, no weakness of arms, no weakness of legs. No drift. [id number] intact. MEDICAL DECISION MAKING: Patient is an 85-year-old female who presents the ER for feeling weak and intermittent chest pain. IV was established and blood work was obtained. Labs show no significant leukocytosis or anemia. BMP along with LFTs bilirubin is unremarkable. Troponin was negative. Lipase normal. UA was contaminated. No urinary symptoms. Viral panel was negative. Chest x-ray was unremarkable. CT of the head was negative. Patient was given aspirin as well as nitro. She was feeling improved. She was discussed with the hospitalist for further evaluation management treatment due to the intermittent chest pain which was worse with exertion. Consults/Care Managements Discussions: Per [facility] Triage Nursing notes reviewed. Limited review of prior medical records performed Vital Signs: reviewed and remarkable for no significant abnormalities Differential diagnosis: Cardiac ischemia, aortic dissection, pulmonary embolism, pneumothorax, pneumonia, pericarditis, myocarditis, esophageal rupture, GERD, cholecystitis, pancreatitis, musculoskeletal, as well as other pathologies. ER treatment provided: See below Diagnostics interpreted by me include EKG and cardiac monitoring as listed below: -Cardiac Monitoring: An order was placed for continuous cardiac monitoring. The monitor shows a rate of 70 with sinus rhythm. -ECG: Sinus bradycardia rate of 57 Normal axis No PVCs T wave inversions in the inferior leads and lateral leads QTc 418 -Laboratory studies:Interpreted by me as stated above in MDM and shown below. Imaging studies: Xrays: As interpreted by me: Portable AP upright 1 view of the chest shows some atelectasis in the left lower lobe CTs show: CT head was negative Procedures:none Critical Care: None Past Med/Surg History Problem List (Updated 09/28/24 @ 13:39 by Samuel Adhikari DO) Weakness (Acute) Chest pain (Acute) Macrocytic anemia with vitamin B12 deficiency Hypercholesteremia (Chronic) Hypertension (Chronic) Osteopenia Chronic kidney disease, stage 3a Pessary maintenance Melanoma (~08/2020) right forearm, resected Medical History Anemia Obesity (BMI 30.0-34.9) Positive Lyme disease serology Prolapsed bladder Prolapse of vaginal meza Rosacea Urge incontinence Vitamin D deficiency Hypertensive emergency Vision blurring Headache Menopause Vitamin D deficiency Hypertension Surgical History History of colonoscopy (~07/29/09) History of dilation and curettage History of tooth extraction Family History (Updated 09/23/24 @ 14:18 by SUNDAY Davidson) Sister Malignant melanoma Hypertension Mother Hypertension Diabetes Cardiac disorder from acute PA age 64 Father Lung cancer age 78 Tobacco use Brother Tobacco use Lung cancer Brother Aortic aneurysm Tobacco use Cancer Sister Cancer Brother Hypertension Recurrent nephrolithiasis Denies family history of Colon cancer Breast cancer Social History (Updated 09/23/24 @ 14:19 by SUNDAY Davidson) Smoking Status: Never smoker Second Hand Exposure: Yes; Do You Dip or Chew Tobacco: No; Hx Alcohol Use: No Hx Substance Use: No Preferred Language: Portuguese Communication Ability: Effective Visual Impairment: No Limitations Hearing Ability: Normal Recreation Establishment Manager Required: No Beliefs That Will Affect Care: None marital status: Current Living Situation: Alone current occupational status: retired 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 How many Children do You have: 2 How many Children do You have Comment: sons other: lives in [place] Feels Safe at Home: Yes Childhood Exposure to Second-Hand Smoke: Yes Diet: low salt Diet Comment: tries to adhere to a low salt diet. caffeine: Yes (2 8 oz cups of coffee daily ) Dental Care, Regularly: No Physical Activity Frequency: 1-2 Times per Week Physical Activity Frequency Comment: she enjoys going for walks. Seatbelt Use: always Sunscreen Use: Yes Assistive Devices: Walker Allergies Allergies Allergy/AdvReac Type Severity Reaction Status Date / Time Penicillins Allergy Unknown HAPPENED Verified 09/18/24 08:23 50 YEARS AGO. Home Meds Home Medications Medication Instructions Recorded Confirmed estradiol 0.01% (0.1 mg/gram) 1 g vaginal WK 06/14/24 09/28/24 vaginal cream Previous Rx's Medication Instructions Recorded ferrous sulfate 325 mg (65 mg 325 mg PO Q OTHER DAY 90 days #45 07/10/24 iron) tablet tabs lisinopril 40 mg tablet (Zestril) 40 mg PO DAILY #90 tabs 07/10/24 simvastatin 40 mg tablet 40 mg PO HS #90 tabs 07/10/24 ergocalciferol (vitamin D2) 1,250 1,250 mcg PO WK 90 days #12 caps 07/11/24 mcg (50,000 unit) capsule cyanocobalamin (vitamin B-12) 1,000 mcg PO DAILY #90 tabs 09/18/24 1,000 mcg tablet hydrochlorothiazide 12.5 mg tablet 12.5 mg PO QAM #30 tabs 09/18/24 Results & Data (ED) Vital Signs Vital Signs - 24 hr 09/28/24 09:04 09/28/24 10:19 09/28/24 10:19 Temperature 36.7 C Temperature Source Temporal Artery Scan Pulse Rate 67 60 Pulse Rate [Apical] 60 Pulse Rate from SpO2 Sensor Pulse Rhythm Regular Pulse Rhythm [Apical] Regular Pulse Strength [Apical] Normal Respiratory Rate 14 17 17 Respiratory Effort / Characteristics Non-Labored Spontaneous Respiratory Depth Normal Blood Pressure 127/63 Blood Pressure [Left Arm] 151/73 H Blood Pressure Mean 84 Blood Pressure Mean [Left Arm] 99 Blood Pressure Position [Left Arm] Semi-fowlers Pulse Oximetry 97 93 93 Oxygen Delivery Method Room Air Room Air Room Air Sepsis New/Unexplained Change in Mental Status No Sepsis Action Taken by Nursing No Action Required 09/28/24 10:23 09/28/24 11:00 09/28/24 11:06 Temperature Temperature Source Pulse Rate 61 51 L Pulse Rate [Apical] Pulse Rate from SpO2 Sensor 51 L Pulse Rhythm Pulse Rhythm [Apical] Pulse Strength [Apical] Respiratory Rate 20 Respiratory Effort / Characteristics Respiratory Depth Blood Pressure 153/68 H Blood Pressure [Left Arm] Blood Pressure Mean 100 Blood Pressure Mean [Left Arm] Blood Pressure Position [Left Arm] Pulse Oximetry 94 Oxygen Delivery Method Sepsis New/Unexplained Change in Mental Status Sepsis Action Taken by Nursing 09/28/24 11:30 09/28/24 12:00 09/28/24 12:03 Temperature Temperature Source Pulse Rate 48 L Pulse Rate [Apical] Pulse Rate from SpO2 Sensor 49 L Pulse Rhythm Pulse Rhythm [Apical] Pulse Strength [Apical] Respiratory Rate 17 Respiratory Effort / Characteristics Respiratory Depth Blood Pressure 176/73 H 169/74 H Blood Pressure [Left Arm] Blood Pressure Mean 107 133 Blood Pressure Mean [Left Arm] Blood Pressure Position [Left Arm] Pulse Oximetry 96 Oxygen Delivery Method Sepsis New/Unexplained Change in Mental Status Sepsis Action Taken by Nursing 09/28/24 12:30 09/28/24 13:03 Temperature Temperature Source Pulse Rate 49 L 49 L Pulse Rate [Apical] Pulse Rate from SpO2 Sensor 49 L 49 L Pulse Rhythm Pulse Rhythm [Apical] Pulse Strength [Apical] Respiratory Rate 18 19 Respiratory Effort / Characteristics Respiratory Depth Blood Pressure 166/115 H 178/75 H Blood Pressure [Left Arm] Blood Pressure Mean 132 109 Blood Pressure Mean [Left Arm] Blood Pressure Position [Left Arm] Pulse Oximetry 96 96 Oxygen Delivery Method Sepsis New/Unexplained Change in Mental Status Sepsis Action Taken by Nursing Laboratory Data 09/28/24 09:55 09/28/24 09:55 Lab Results 09/28/24 09/28/24 09/28/24 Range/Units 09:55 10:00 12:35 WBC 7.58 (4.8-10.8) K/ul RBC 4.50 (4.20-5.40) M/uL Hgb 13.9 (12.0-16.0) g/dl Hct 41.2 (37.0-47.0) % MCV 91.6 (80.0-100.0) fL MCH 30.9 (25.0-34.0) pg MCHC 33.7 (32.0-36.0) g/dL RDW Std Deviation 41.5 (36.4-46.3) fL RDW Coeff of Nura 12.5 (11.5-14.5) % Plt Count 213 (130-400) K/uL MPV 10.4 (9.4-12.4) fL Immature Gran % (Auto) 0.4 % Neut % (Auto) 81.4 % Lymph % (Auto) 11.2 % [place] % (Auto) 5.5 % Eos % (Auto) 1.1 % Baso % (Auto) 0.4 % Neut # (Auto) 6.17 (1.40-6.50) K/uL Lymph # (Auto) 0.85 L (1.20-3.40) K/uL [place] # (Auto) 0.42 (0.11-0.59) K/uL Eos # (Auto) 0.08 (0.00-0.50) K/uL Baso # (Auto) 0.03 (0.00-0.20) K/uL Immature Gran # (Auto) 0.03 (0.01-0.20) K/uL Sodium 139 (136-145) mmol/L Potassium 4.0 (3.5-5.1) mmol/L Chloride 107 (98-107) mmol/L Carbon Dioxide 30 (21-32) mmol/L Anion Gap 2 L (3-11) BUN 20 (6-23) mg/dl Creatinine 0.99 (0.6-1.2) mg/dl Est Cr Clr Drug Dosing Not Reportable eGFR 55.53 BUN/Creatinine Ratio 20.2 H (10-20) Glucose 94 (70-99(Fasting)) mg/dl Calcium 10.0 (8.6-10.3) mg/dl Total Bilirubin 0.6 (0.2-1.0) mg/dl AST 19 (13-39) U/L ALT 15 (7-52) U/L Alkaline Phosphatase 61 (34-104) U/L Troponin I High Sens 8.4 5.3 (0-14) pg/ml Total Protein 6.6 (6.0-8.3) gm/dl Albumin 4.2 (3.4-5.0) gm/dl Globulin 2.4 L (2.5-4.0) gm/dl Albumin/Globulin Ratio 1.8 (0.9-2) Lipase 28 (11-82) U/L Urine Color Yellow Urine Appearance Cloudy A (Clear) Urine pH 6.0 (4.5-7.5) Ur Specific [place] 1.017 (1.000-1.030) Urine Protein Negative (Negative) Urine Glucose (UA) Negative (Negative) Urine Ketones Negative (Negative) Urine Blood Trace H (Negative) Urine Nitrite Negative (Negative) Urine Bilirubin Negative (Negative) Urine Urobilinogen Negative (Negative) Ur Leukocyte Esterase 3+ H (Negative) Urine WBC (Auto) 21-50 H (0-5) /hpf Urine RBC (Auto) 0-2 (0-2) /hpf U Hyaline Cast (Auto) 0-2 (0-2) /lpf U Epithel Cells (Auto) 11-20 H (0-2) /hpf Urine Bacteria (Auto) 3+ H (None Seen) Adenovirus (PCR) Not Detected (NotDetected) B. pertussis DNA (PCR) Not Detected (NotDetected) B.parapertussis DNA PCR Not Detected (NotDetected) C. pneumoniae DNA (PCR) Not Detected (NotDetected) Coronavirus OC43 (PCR) Not Detected (NotDetected) Coronavirus HKU1 (PCR) Not Detected (NotDetected) Coronavirus 229E (PCR) Not Detected (NotDetected) SARS-CoV-2 (PCR) Not Detected (NotDetected) Coronavirus NL63 (PCR) Not Detected (NotDetected) Human Metapneumovir PCR Not Detected (NotDetected) Influenza Type A (PCR) Not Detected (NotDetected) Influenza Type B (PCR) Not Detected (NotDetected) M. pneumoniae (PCR) Not Detected (NotDetected) Parainfluenza 1 (PCR) Not Detected (NotDetected) Parainfluenza 2 (PCR) Not Detected (NotDetected) Parainfluenza 3 (PCR) Not Detected (NotDetected) Parainfluenza 4 (PCR) Not Detected (NotDetected) RSV (PCR) Not Detected (NotDetected) Entero/Rhino (PCR) Not Detected (NotDetected) Administered Medications Nitroglycerin (Nitroglycerin Sl 0.4 Mg/Tab Tab) 0.4 mg SL Q5M PRN PRN Reason: Chest Pain Stop: 10/28/24 09:43 Last Admin: 09/28/24 10:13 Dose: 0.4 mg Documented By: AMS Discontinued Medications Aspirin (Aspirin Chew 324 Mg) 324 mg PO NOW STA Stop: 09/28/24 09:45 Last Admin: 09/28/24 10:12 Dose: 324 mg Documented By: AMS Lisinopril (Lisinopril 40 Mg Tab) 40 mg PO NOW STA Stop: 09/28/24 12:44 Last Admin: 09/28/24 13:13 Dose: 40 mg Documented By: CEF Imaging Data Radiologist's Impression: Head CT 09/28/24 09:21 HISTORY: Weakness. TECHNIQUE: CT of the head without contrast. Images are presented in axial, sagittal, and coronal reformats. COMPARISON: Head CT dated 09/16/2024. FINDINGS: No evidence of intracranial hemorrhage, abnormal extra-axial fluid collection, mass effect, or midline shift. Mild volume loss and presumed chronic microvascular ischemic changes. Ventricular caliber is appropriate. Fourth ventricle is midline. Basal cisterns are patent. Huynh-white differentiation is maintained. Intracranial atherosclerotic vascular calcifications. Globes and orbits are unremarkable. Soft tissues about the skull base and scalp are unremarkable. Paranasal sinuses and mastoid air cells are clear. No calvarial fracture. IMPRESSION: * No acute intracranial findings. * Mild volume loss and presumed chronic microvascular ischemic changes. Electronically signed by Nguyễn Pickett 09-28-2024 10:22 AM Chest X-Ray 09/28/24 09:22 HISTORY: Weakness. TECHNIQUE: Portable AP radiograph of the chest. COMPARISON: Chest radiograph dated 06/14/2024. FINDINGS: Mild left basilar airspace opacity could atelectasis or pneumonia. No pneumothorax or effusion. Mild cardiomegaly. Left-sided aortic arch. Midline trachea. No acute osseous abnormality. Included upper abdomen is unremarkable. IMPRESSION: * Mild left basilar opacity could represent atelectasis or pneumonia. * Mild cardiomegaly. Electronically signed by Nguyễn Pickett 09-28-2024 09:46 AM Discharge Plan Visit Data Chief Complaint: Illness Stated Complaint: FATIGUE,ALTERED MENTAL STATUS ED Provider: Samuel Adhikari Discharge Problem: Chest pain, Hypertension, Weakness Forms Stand Alone Forms: [facility] rocket staff Prescriptions Prescriptions: No Action simvastatin 40 mg tablet 40 mg PO HS Qty: 90 3RF lisinopril [Zestril] 40 mg tablet 40 mg PO DAILY Qty: 90 3RF ferrous sulfate 325 mg (65 mg iron) tablet 325 mg PO Q OTHER DAY 90 Days Qty: 45 3RF Rx Instructions: every other evening. M,W,F ergocalciferol (vitamin D2) 1,250 mcg (50,000 unit) capsule 1,250 mcg PO WK 90 Days Qty: 12 3RF Rx Instructions: on sundays, TAKE 1 CAPSULE ONCE PER WEEK cyanocobalamin (vitamin B-12) 1,000 mcg tablet 1,000 mcg PO DAILY Qty: 90 3RF hydrochlorothiazide 12.5 mg tablet 12.5 mg PO QAM Qty: 30 1RF estradiol 0.01 % (0.1 mg/gram) cream 1 g vaginal WK Rx Instructions: 1 g vaginal once weekly; Referrals Referrals: Donald Bhatti DO [Primary Care Provider] - Discharge Problem: Chest pain Qualifiers: Chest pain type: unspecified Qualified Code(s): R07.9 - Chest pain, unspecified Hypertension Qualifiers: Hypertension type: unspecified Qualified Code(s): I10 - Essential (primary) hypertension
--- NOTE | 2024-09-28 09:46 | XRay Report ---
HISTORY: Weakness. TECHNIQUE: Portable AP radiograph of the chest. COMPARISON: Chest radiograph dated 06/14/2024. FINDINGS: Mild left basilar airspace opacity could atelectasis or pneumonia. No pneumothorax or effusion. Mild cardiomegaly. Left-sided aortic arch. Midline trachea. No acute osseous abnormality. Included upper abdomen is unremarkable. IMPRESSION: * Mild left basilar opacity could represent atelectasis or pneumonia. * Mild cardiomegaly. Electronically signed by Nguyễn Pickett 09-28-2024 09:46 AM
[2024-09-28] MEDS: ASPIRIN CHEW 324 MG PO STA (10:12)
[2024-09-28] MEDS: NITROGLYCERIN SL 0.4 MG/TAB TAB SL PRN (10:13)
[2024-09-28 10:20] LABS: Basophils # (auto) 0.03 K/uL (0.00-0.20); Basophils % (auto) 0.4 %; Eosinophils # (auto) 0.08 K/uL (0.00-0.50); Eosinophils % (auto) 1.1 %; Hematocrit (blood only) 41.2 % (37.0-47.0); Hemoglobin 13.9 g/dl (12.0-16.0); Immature Granulocytes # (auto) 0.03 K/uL (0.01-0.20); Immature Granulocytes % (auto) 0.4 %; Lymphocytes # (auto) 0.85 K/uL (1.20-3.40); Lymphocytes % (auto) 11.2 %; Mean Corpuscular Hemoglobin 30.9 pg (25.0-34.0); Mean Corpuscular Hgb Conc 33.7 g/dL (32.0-36.0); Mean Corpuscular Volume 91.6 fL (80.0-100.0); Mean Platelet Volume 10.4 fL (9.4-12.4); Monocytes # (auto) 0.42 K/uL (0.11-0.59); Monocytes % (auto) 5.5 %; Neutrophils # (auto) 6.17 K/uL (1.40-6.50); Neutrophils % (auto) 81.4 %; Platelet Count 213 K/uL (130-400); RDW Coefficient of Variation 12.5 % (11.5-14.5); RDW Standard Deviation 41.5 fL (36.4-46.3); White Blood Count 7.58 K/ul (4.8-10.8)
--- NOTE | 2024-09-28 10:22 | CT Scan Report ---
HISTORY: Weakness. TECHNIQUE: CT of the head without contrast. Images are presented in axial, sagittal, and coronal reformats. COMPARISON: Head CT dated 09/16/2024. FINDINGS: No evidence of intracranial hemorrhage, abnormal extra-axial fluid collection, mass effect, or midline shift. Mild volume loss and presumed chronic microvascular ischemic changes. Ventricular caliber is appropriate. Fourth ventricle is midline. Basal cisterns are patent. Huynh-white differentiation is maintained. Intracranial atherosclerotic vascular calcifications. Globes and orbits are unremarkable. Soft tissues about the skull base and scalp are unremarkable. Paranasal sinuses and mastoid air cells are clear. No calvarial fracture. IMPRESSION: * No acute intracranial findings. * Mild volume loss and presumed chronic microvascular ischemic changes. Electronically signed by Nguyễn Pickett 09-28-2024 10:22 AM
[2024-09-28 10:33] LABS: Alanine Aminotransferase 15 U/L (7-52); Albumin Globulin Ratio 1.8 (0.9-2); Albumin Level 4.2 gm/dl (3.4-5.0); Alkaline Phosphatase 61 U/L (34-104); Anion Gap 2 (3-11); Aspartate Aminotransferase 19 U/L (13-39); BUN Creatinine Ratio 20.2 (10-20); Bilirubin,Total 0.6 mg/dl (0.2-1.0); Blood Urea Nitrogen 20 mg/dl (6-23); Carbon Dioxide 30 mmol/L (21-32); Chloride 107 mmol/L (98-107); Globulin 2.4 gm/dl (2.5-4.0); Glucose 94 mg/dl (70-99(Fasting)); Lipase 28 U/L (11-82); Sodium 139 mmol/L (136-145); Total Protein 6.6 gm/dl (6.0-8.3)
[2024-09-28 10:40] LABS: Troponin I High Sensitivity 8.4 pg/ml (0-14)
[2024-09-28 10:41] LABS: Appearance Urine Cloudy (Clear); Bacteria Urine Automated 3+ (None Seen); Bilirubin Urine Negative (Negative); Blood Urine Trace (Negative); Cast Urine Automated 0-2 /lpf (0-2); Color Urine Yellow; Glucose Urine UA Negative (Negative); Ketones Urine Negative (Negative); Leukocyte Esterase Urine 3+ (Negative); Nitrite Urine Negative (Negative); Protein Urine Negative (Negative); RBC Urine Automated 0-2 /hpf (0-2); Specific Gravity Urine 1.017 (1.000-1.030); Urobilinogen Urine Negative (Negative); WBC Urine Automated 21-50 /hpf (0-5)
[2024-09-28 11:03] LABS: Adenovirus PCR Not Detected (NotDetected); Bordetella parapertussis PCR Not Detected (NotDetected); Bordetella pertussis PCR Not Detected (NotDetected); Chlamydia pneumoniae PCR Not Detected (NotDetected); Coronavirus 229E PCR Not Detected (NotDetected); Coronavirus CoV-2 (COVID19)PCR Not Detected (NotDetected); Coronavirus HKU1 PCR Not Detected (NotDetected); Coronavirus NL63 PCR Not Detected (NotDetected); Coronavirus OC43PCR Not Detected (NotDetected); Human Metapneumovirus PCR Not Detected (NotDetected); Influenza A PCR Not Detected (NotDetected); Influenza B PCR Not Detected (NotDetected); Mycoplasma pneumoniae PCR Not Detected (NotDetected); Parainfluenza Virus 1 PCR Not Detected (NotDetected); Parainfluenza Virus 2 PCR Not Detected (NotDetected); Parainfluenza Virus 3 PCR Not Detected (NotDetected); Parainfluenza Virus 4 PCR Not Detected (NotDetected); Respiratory Syncytial VirusPCR Not Detected (NotDetected); Rhinovirus/Enterovirus PCR Not Detected (NotDetected)
--- NOTE | 2024-09-28 11:04 | History & Physical Report ---
Date of Service September 28, 2024 Assessment & Plan (1) Hypertension: (2) Chronic kidney disease, stage 3a: (3) Generalized weakness: Plan Maxine is a 84-year-old female who presented on 09/28 for recurrence of generalized weakness, headache, and chest pressure. Coming in for ongoing h ypertensive problems and renal ultrasound. #Episodes of generalized fatigue Episodes of extreme fatigue, headache, and occasional chest pressure Has had multiple workups for this both via PCP and in the emergency department Leading DDx includes tension headache v. hypertensive encephalopathy TSH WNL on 08/31/2024 Iron panel WNL on 09/03/2024 Most recent vitamin B12 and folate levels okay Head CT on 09/28/2024 revealed no acute findings PT/OT evaluations appreciated Fall precautions #HTN Patient is currently on lisinopril and HCTZ for her blood pressure Elevated BP likely contributing to her symptoms (both headache and chest pressure whenever it is high, and generalized fatigue when it is low after taking medications) Patient does follow with the hypertension clinic (last seen on 09/19/2024): "HTN Timeline (per most recent HTN clinic note): * She had remained stable on lisinopril 20mg daily for several years (reviewed charts back to 2019). * Admitted to [facility] on June 12, 2024, after presenting to [facility] ER with acute confusion and hypertensive emergency (BP 229/72). A CT scan revealed a mild left posterior convexity SAH. She was transferred to [facility] in [place], where repeat CT scans showed a stable SAH, and a CTA was negative for aneurysm. An MRI suggested cerebral amyloid angiopathy. After being managed in the ICU, she was discharged home on June 12, 2024. * Returned back to the [facility] ER that June 12, 2024 for weakness in her lower extremities. During her second hospital stay, her blood pressure fluctuated and was managed with hydralazine and lisinopril. Serial CT scans of her head showed no change in the SAH. Her hypertension was better controlled with an increased dose of lisinopril to 40mg daily. By the day of discharge (June 16, 2024), she was ambulating independently, felt well, and denied any head ache, focal neurological deficits, or events on telemetry. * Seen by her PCP 06/25/24 for TCM, she remained on lisinopril 40mg daily with good control. * August 31, 2024- seen in the ER for dizziness, headache and elevated BP. Given IV hydralazine and 20mg of lisinopril. She was increased from 40mg to 60mg of lisinopril and discharged home * 09/03/24- lisinopril decreased from 60mg to 40mg daily by PCP. * September 16, 2024- she visited the emergency department due to a headache and fatigue, symptoms she had been experiencing intermittently for several weeks. * She was seen by her PCP September 18, 2024 she reported a return of her headache over the past two days, along with intermittent blurry vision. He believed her symptoms were intracranial hemorrhage, tension headache, and hypertensive encephalopathy." Continue lisinopril 40 mg p.o. daily Continue HCTZ 12.5 mg p.o. daily Patient does have an upcoming appointment scheduled with nephrology on 10/14 Renal artery ultrasound ordered to rule out SINGH #Bradycardia Heart rate dipping to the high 40 bpm range in the emergency department Note: This limits potential antihypertensive medications Continuous telemetry monitoring #Chest pressure No leukocytosis; afebrile [employer] negative EKG without acute changes; troponin WNL on arrival CXR arrival revealed mild left basilar opacity which could represent pneumonia Compared against most recent CXR on 09/16; ? Occult pneumonia Last echocardiogram on 06/13/2024 revealed LVEF at 65-69% Suspect this is secondary to hypertension, will defer additional echocardiogram at this time #Asymptomatic bacteriuria UA positive on arrival; ? Contaminant Clinically, patient denies burning with urination, lower back pain, or urinary symptoms Given no leukocytosis, will defer antibiotics at this time Follow current UCx #History of subarachnoid hemorrhage Noted; patient was transferred to [facility] on 06/12 for small subarachnoid hemorrhage in the left parietal area on head CT Aspirin discontinued at that time Chronic stable conditions: HLDsimvastatin Disposition: Obs - Admit to MedSurg telemetry DNR/DNI Heart healthy, low-sodium diet VTE PPx: Teds History of Present Illness Chief Complaint: Generalized fatigue, chest pressure Primary Care Provider: Donald Bhatti DO Maxine is an 84-year-old female with PMH of HTN, macrocytic anemia, CKD, and hypercholesteremia. She presented on 09/28 for episodes of generalized fatigue and chest pressure over the past couple months. Patient's 2 sons are at the bedside and provide most of history. They report that [facility]. Every week or so, she will develop extreme fatigue. She also reports that she will can have chest pressure both at rest and with exertion. Patient does have remote history of a minor brain bleed in May 2024 requiring transfer to [facility]. Since this time, she has had difficulty with blood pressure control. They have been tweaking her dose since around . Per her sons, she has been increased on lisinopril to the max dosage. They believe that her blood pressure spikes might be tied to her fatigue and ongoing headaches. Patient keeps a record of her home BP cuff measurements daily, and recently they have been okay (not tied fatigue). No recent change in diet. She reports she had a cheese casserole, grapes, and some meatloaf yesterday for food. She reports she does watch her salt intake at home; does not eat soup or lunch meat, but does occasionally have ham. Patient was recently treated with antibiotics for a UTI in August; Keflex prescribed on 08/31. She is not currently on antibiotics. Patient lives by herself. She reports she did not take her morning medicine today. Her sons report that they have been telling her to take her blood pressure medications at night, but she normally takes them during the day. Patient manages her own medicine at home. Most recent change was that she was started on HCTZ 12.5 mg p.o. daily on 09/18. No sick contacts. Patient drinks 2 cups of coffee in the morning. Both patient and family report a gradual decline in memory since around time. Patient denies history of smoking or tobacco use. She does not use ambulatory assist devices at home; she denies any recent falls or injuries to her head or neck. She is mildly hypertensive at 151/73 at time admission; vitals otherwise stable. ED course: Aspirin 324 mg p.o. Nitroglycerin 0.4 mg SL ROS: Patient endorses HUSSEIN (whenever her BP spikes), loose stool, intermittent chest pressure, and episodes of generalized fatigue. Patient denies fever, chills, night-sweats, dizziness, lightheadedness, rashes, tick bites, chest pain, chest palpitations, pleuritic CP, SOB, abdominal pain, N/V/D, burning with urination, blood in the urine/stool, or numbness/tingling/swelling in the arms or legs. Allergies Allergy/AdvReac Type Severity Reaction Status Date / Time Penicillins Allergy Unknown HAPPENED Verified 09/18/24 08:23 50 YEARS AGO. Home Medications Medication Instructions Recorded Confirmed Type estradiol 0.01% (0.1 mg/gram) 1 g vaginal WK 06/14/24 09/28/24 History vaginal cream ferrous sulfate 325 mg (65 mg 325 mg PO Q OTHER DAY 90 days #45 07/10/24 09/28/24 Rx iron) tablet tabs lisinopril 40 mg tablet (Zestril) 40 mg PO DAILY #90 tabs 07/10/24 09/28/24 Rx simvastatin 40 mg tablet 40 mg PO HS #90 tabs 07/10/24 09/28/24 Rx ergocalciferol (vitamin D2) 1,250 1,250 mcg PO WK 90 days #12 caps 07/11/24 09/28/24 Rx mcg (50,000 unit) capsule cyanocobalamin (vitamin B-12) 1,000 mcg PO DAILY #90 tabs 09/18/24 09/28/24 Rx 1,000 mcg tablet hydrochlorothiazide 12.5 mg tablet 12.5 mg PO QAM #30 tabs 09/18/24 09/28/24 Rx Past Med/Surg History Problem List (Updated 09/28/24 @ 14:48 by Darrion Mckeon PA-C) Generalized weakness Weakness (Acute) Chest pain (Acute) Macrocytic anemia with vitamin B12 deficiency Hypercholesteremia (Chronic) Hypertension (Chronic) Osteopenia Chronic kidney disease, stage 3a Pessary maintenance Melanoma (~08/2020) right forearm, resected Medical History Anemia Obesity (BMI 30.0-34.9) Positive Lyme disease serology Prolapsed bladder Prolapse of vaginal meza Rosacea Urge incontinence Vitamin D deficiency Hypertensive emergency Vision blurring Headache Menopause Vitamin D deficiency Hypertension Surgical History History of colonoscopy (~07/29/09) History of dilation and curettage History of tooth extraction Family History (Updated 09/23/24 @ 14:18 by SUNDAY Davidson) Sister Malignant melanoma Hypertension Mother Hypertension Diabetes Cardiac disorder from acute CA age 64 Father Lung cancer age 78 Tobacco use Brother Tobacco use Lung cancer Brother Aortic aneurysm Tobacco use Cancer Sister Cancer Brother Hypertension Recurrent nephrolithiasis Denies family history of Colon cancer Breast cancer Social History (Updated 09/23/24 @ 14:19 by SUNDAY Davidson) Smoking Status: Never smoker Second Hand Exposure: Yes; Do You Dip or Chew Tobacco: No; Hx Alcohol Use: No Hx Substance Use: No Preferred Language: Portuguese Communication Ability: Effective Visual Impairment: No Limitations Hearing Ability: Normal Enterprise Cloud Architect Required: No Beliefs That Will Affect Care: None marital status: Current Living Situation: Alone current occupational status: retired 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 How many Children do You have: 2 How many Children do You have Comment: sons other: lives in [place] Feels Safe at Home: Yes Childhood Exposure to Second-Hand Smoke: Yes Diet: low salt Diet Comment: tries to adhere to a low salt diet. caffeine: Yes (2 8 oz cups of coffee daily ) Dental Care, Regularly: No Physical Activity Frequency: 1-2 Times per Week Physical Activity Frequency Comment: she enjoys going for walks. Seatbelt Use: always Sunscreen Use: Yes Assistive Devices: Walker Review of Systems Review of Systems: See HPI above Physical Exam Physical Exam: General: no acute distress; pleasant affect; sons at bedside; non-toxic appearing; well-nourished; cooperative; SpO2 93% on room air HEENT: normocephalic, atraumatic; no scleral icterus; PERRLA; vision intact Neck: supple; no lymphadenopathy; trachea midline Skin: warm, dry without signs of tenting; no cyanosis; no rashes, bruising, lesions, or erythema noted CV: chest wall NTP; RRR; S1/S2 normal; no murmurs/rubs/gallops; pulses intact and symmetric at radial, DP, and PT Lungs: no acute respiratory distress; symmetrical chest wall expansion; clear breath sounds across all lung toney w/o adventitious sounds; no wheezing ABD: Soft, NTP; BS present; no rebound/guarding; no distention MSK: no tics or fasciculations; no edema noted in the LEs b/l, nonerythematous; 5/5 cloth dyer strength bilaterally; patient demonstrates ability to wiggle toes/plantarflex/dorsiflex/lift legs bilateral from the bed with 5/5 strength Neuro: A&Ox3; normal mood and affect; fluent speech; no facial droop; no focal deficits; sensation intact symmetric in the upper and lower extremities bilaterally Results & Data Results & Data Vital Signs (Past 12 Hours) Vital Signs Temp Pulse Pulse Resp BP BP Pulse Ox 09/28/24 10:23 61 09/28/24 10:19 60 17 93 09/28/24 10:19 60 17 151/73 H 93 09/28/24 09:04 36.7 C 67 14 127/63 97 O2 Del Method 09/28/24 10:23 09/28/24 10:19 Room Air 09/28/24 10:19 Room Air 09/28/24 09:04 Room Air Laboratory Results Abnormal lab results 09/28/24 09/28/24 Range/Units 09:55 10:00 Lymph # (Auto) 0.85 L (1.20-3.40) K/uL Anion Gap 2 L (3-11) BUN/Creatinine Ratio 20.2 H (10-20) Globulin 2.4 L (2.5-4.0) gm/dl Urine Appearance Cloudy A (Clear) Urine Blood Trace H (Negative) Ur Leukocyte Esterase 3+ H (Negative) Urine WBC (Auto) 21-50 H (0-5) /hpf U Epithel Cells (Auto) 11-20 H (0-2) /hpf Urine Bacteria (Auto) 3+ H (None Seen) Diagnostic Findings Head CT 09/28/24 09:21 HISTORY: Weakness. TECHNIQUE: CT of the head without contrast. Images are presented in axial, sagittal, and coronal reformats. COMPARISON: Head CT dated 09/16/2024. FINDINGS: No evidence of intracranial hemorrhage, abnormal extra-axial fluid collection, mass effect, or midline shift. Mild volume loss and presumed chronic microvascular ischemic changes. Ventricular caliber is appropriate. Fourth ventricle is midline. Basal cisterns are patent. Huynh-white differentiation is maintained. Intracranial atherosclerotic vascular calcifications. Globes and orbits are unremarkable. Soft tissues about the skull base and scalp are unremarkable. Paranasal sinuses and mastoid air cells are clear. No calvarial fracture. IMPRESSION: * No acute intracranial findings. * Mild volume loss and presumed chronic microvascular ischemic changes. Electronically signed by Nguyễn Pickett 09-28-2024 10:22 AM Chest X-Ray 09/28/24 09:22 HISTORY: Weakness. TECHNIQUE: Portable AP radiograph of the chest. COMPARISON: Chest radiograph dated 06/14/2024. FINDINGS: Mild left basilar airspace opacity could atelectasis or pneumonia. No pneumothorax or effusion. Mild cardiomegaly. Left-sided aortic arch. Midline trachea. No acute osseous abnormality. Included upper abdomen is unremarkable. IMPRESSION: * Mild left basilar opacity could represent atelectasis or pneumonia. * Mild cardiomegaly. Electronically signed by Nguyễn Pickett 09-28-2024 09:46 AM ECG Additional Comments: ECG revealed sinus bradycardia at 57 bpm; QTc 418 Code Status & VTE Plan Code Status DNR/DNI VTE Prophylaxis Plan VTE Prophylaxis will be ordered: Yes Supervising Physician Co-Signing Physician Notes Patient seen and examined, chart reviewed, case discussed with Darrion Mckeon PA-C and I agree with the assessment and plan as above except as otherwise noted Labs and images reviewed 84-year-old female with PMHx of past SAH 2023 with htn since recently on lisinopril 40mg, hctz 12.5mg with intermittent fatigue, generalized weakness, and headache/chest pressure that seem to correlate with high BP at home. Multiple recent ER and PCP visits for adjustments. Saw Dr. Bhatti on 09/18 and was started on hctz at that time. Follows with htn clinic as outpatient. 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 Echo with normal LVEF XR with ?L basilar opacity atelectasis vs PNA. No evidence of CHF No leukocytosis. No respiratory symptoms. No urinary symptoms, UA contaminated appearing with epis and recently completed keflex for UTI with cx without speciation Suspected to have poorly controlled hypertension with intermittent associated hypertensive encephalopathy. Per review of home BPs does have intermittent episodes of BP >160-180s, but also has pressures ~100s and some lows. +labile HTN with risk for weakness due to lows. BB/CCB limited by bradycardia Pt has has strong correlation of HTN with salt intake at home. Further uptitration of her antihypertensives are limited by risk of hypotension and syncope, especially given her intermittent lows in the last 2 weeks on review of her home readings. She has a strong correlation of her highs with salt intake and 2 g sodium restriction was reinforced. BP is less than 180, additional antihypertensives deferred at time of assessment. Given that she has had some chest pain at rest we will evaluate her with a serial troponin and if elevated can follow-up for echo versus stress test. Improving at time of reassessment. Given that she has had persistent hypertension on at least 2 medications some lability will check renal artery Dopplers to rule out SINGH. Otherwise agree with above PG Care Time/CCT Total # of Minutes Spent Total Time Spent with Patient: Total time spent is greater than 50% in coordination of care (as documented) at patient's floor/unit and/or counseling patient: Coding [place] [address] INT INP/OBS CARE 3/75MIN Patient Type Established History Comprehensive Exam Comprehensive Medical Decision Making High Complexity Diagnoses Essential hypertension I10 Hypertension type: unspecified Chronic kidney disease, stage 3a N18.3 Generalized weakness R53.1 (1) Hypertension Hypertension type: unspecified Qualified Code(s): I10 - Essential (primary) hypertension
--- NOTE | 2024-09-28 12:16 | Electrocardiogram Report ---
Test Reason : Blood Pressure : */* mmHG Vent. Rate : 57 BPM Atrial Rate : 57 BPM P-R Int : 160 ms QRS Dur : 104 ms QT Int : 430 ms P-R-T Axes : 45 1 235 degrees QTcB Int : 418 ms Sinus bradycardia Left ventricular hypertrophy with repolarization abnormality ( R in aVL ) Abnormal ECG When compared with ECG of 16-Sep-2024 09:55, No significant change was found Confirmed by Asael Snyder ([id number]) on 09/28/2024 12:16:02 PM Referred By: Confirmed By: Asael Snyder
[2024-09-28] MEDS: lisinopril 40 MG TAB PO STA (13:13)
[2024-09-28] MEDS ORDERED: ACETAMINOPHEN 325 MG TAB PO PRN (15:57)
[2024-09-28 18:09] LABS: Lyme Screen Rflx Confirmation Positive (Negative)
[2024-09-28 18:43] LABS: Lyme Ab IgG 2nd Tier Confirm Positive (Negative); Lyme Ab IgM 2nd Tier Confirm Negative (Negative)
[2024-09-28] MEDS ORDERED: ATROPINE SULFATE 0.1 MG/ML 10ML SYR IV PRN (19:12)
[2024-09-28] MEDS: SIMVASTATIN 40 MG TAB PO SCH (21:27)
--- NOTE | 2024-09-29 00:10 | Ultrasound Report ---
Exam(s): US RENAL EXAM: US Retroperitoneal Limited, Renal CLINICAL HISTORY: Reason for exam: SINGH r/o. TECHNIQUE: Real-time limited ultrasound of the retroperitoneum with image documentation. COMPARISON: No relevant prior studies available. FINDINGS: Aorta: The aorta peak systolic velocity is 94 cm/s. Right kidney: The right renal artery demonstrates a peak systolic velocity 154 cm/s proximally, 239 cm/s mid, and 178 cm/s distally. Right renal artery arcuate arteries demonstrate resistive indices of 0.72, 0.81, and 0.74. There is a 1.4 cm simple cyst in the right kidney. No follow- up is required. No stones. No hydronephrosis. The right kidney measures 11.5 cm. Right renal artery to aortic ratio 2.5. Left kidney: The renal artery acceleration times are not measured. Mild left hydronephrosis versus parapelvic renal cysts measuring up to 1. 3 cm. Left renal artery demonstrates peak systolic velocities of 158 cm/s proximally, 154 cm/s mid, and 102 cm/s distally. Left renal artery arcuate arteries demonstrate resistive indices of 0.74, 0.79, and 0.76. The left kidney measures 11 cm. Left renal artery to aortic ratio 1.7. IMPRESSION: Elevated peak systolic velocity of 239 cm/s and renal artery to aortic ratio of 2.5 in the right renal artery consistent with less than 60% left renal artery stenosis. Resistive indices are upper normal. Electronically signed by: Luis Angel Jackson MD 09/29/24 00:09 AM
[2024-09-29] MEDS: FERROUS SULFATE 325 MG TAB PO SCH (08:55)
[2024-09-29] MEDS ORDERED: hydroCHLOROthiazide 25 MG TAB PO SCH (09:00)
[2024-09-29] MEDS ORDERED: lisinopril 40 MG TAB PO SCH (09:00)
--- NOTE | 2024-09-29 09:44 | Cardiology Consultation ---
Date of Consultation September 29, 2024 Assessment & Plan (1) Bradycardia: Plan 1. Sinus bradycardia: She may have an element of mild sinus bradycardia at times. No clear associated symptoms. She has good documentation of heart rates at home all of which appear to be in the normal range or just mildly bradycardic. This appears to be a longstanding issue. I doubt this is related to her acute symptoms leading up to her admission. With ambulation around her room she appears to have an appropriate chronotropic response. No evidence of significant conduction disease on her EKG. I do not think this requires additional follow-up in the absence of new symptoms. 2. Abnormal EKG: She does have some diffuse T wave inversions on her EKG. However, these have been well-documented in the past. No current symptoms consistent with significant coronary disease and preserved LV systolic function when evaluated a few years ago. I do not think she requires an additional evaluation based exclusively on this EKG. 3. Abnormal Lyme screen: Likely chronic, without any detected IgM band currently. I do not think this is playing a role in her bradycardia. Will defer treatment to her primary team. 4. Mitral digitation: Mild in 2019. No notable murmur on examination. Repeat evaluation within the next year would be reasonable and can be performed in the outpatient setting. History of Present Illness Reason for Consultation: Bradycardia Requesting Physician: Mike Attending Physician: Baldemar Ramos MD History of Present Illness The patient is a 89-year-old woman without a known history of cardiac disease who presented to the hospital for symptoms of extreme fatigue. Patient states that in general she has elements of fatigue at times, but approximately 2 days ago she developed some severe symptoms that made her quite listless. No focal deficits. Some concerns about elevated blood pressure which have been a chronic issue. She presented to the emergency room for evaluation and while in the emergency room on telemetry she was noted to have some heart rates in the 30s. No additional symptoms associated with those episodes. Patient states that she has always had a heart rate on the lower side. She states that she has heart rates in the 50s commonly. She occasionally feels a "flutter", but this is not associated with other symptoms, is fleeting and rare. She generally does not have symptoms of dizziness and lightheadedness. She does not report any symptoms of syncope in the past. She keeps meticulous records of her blood pressure and heart rate which I was able to review. She lives in a two-story house and is able to as send and descend the stairs several times daily. She does take her time and when carrying heavy items such as laundry she will take several steps at a time. She rests in between. However, her level of activity has not changed recently. This morning clinically feeling better. Her energy has improved but not yet returned to baseline. She has been ambulatory around room on several occasions without symptoms of dizziness or lightheadedness. No limiting dyspnea. No exertional chest pain. Allergies Allergy/AdvReac Type Severity Reaction Status Date / Time Penicillins Allergy Unknown HAPPENED Verified 09/18/24 08:23 50 YEARS AGO. Home Medications Medication Instructions Recorded Confirmed Type estradiol 0.01% (0.1 mg/gram) 1 g vaginal WK 06/14/24 09/28/24 History vaginal cream ferrous sulfate 325 mg (65 mg 325 mg PO Q OTHER DAY 90 days #45 07/10/24 09/28/24 Rx iron) tablet tabs lisinopril 40 mg tablet (Zestril) 40 mg PO DAILY #90 tabs 07/10/24 09/28/24 Rx simvastatin 40 mg tablet 40 mg PO HS #90 tabs 07/10/24 09/28/24 Rx ergocalciferol (vitamin D2) 1,250 1,250 mcg PO WK 90 days #12 caps 07/11/24 09/28/24 Rx mcg (50,000 unit) capsule cyanocobalamin (vitamin B-12) 1,000 mcg PO DAILY #90 tabs 09/18/24 09/28/24 Rx 1,000 mcg tablet hydrochlorothiazide 12.5 mg tablet 12.5 mg PO QAM #30 tabs 09/18/24 09/28/24 Rx Patient History Medical History Anemia Obesity (BMI 30.0-34.9) Positive Lyme disease serology Prolapsed bladder Prolapse of vaginal meza Rosacea Urge incontinence Vitamin D deficiency Hypertensive emergency Vision blurring Headache Menopause Vitamin D deficiency Hypertension Surgical History History of colonoscopy (~07/29/09) History of dilation and curettage History of tooth extraction Family History (Updated 09/23/24 @ 14:18 by SUNDAY Davidson) Sister Malignant melanoma Hypertension Mother Hypertension Diabetes Cardiac disorder from acute [place] age 64 Father Lung cancer age 78 Tobacco use Brother Tobacco use Lung cancer Brother Aortic aneurysm Tobacco use Cancer Sister Cancer Brother Hypertension Recurrent nephrolithiasis Denies family history of Colon cancer Breast cancer Social History (Updated 09/23/24 @ 14:19 by SUNDAY Davidson) Smoking Status: Never smoker Second Hand Exposure: Yes; Do You Dip or Chew Tobacco: No; Hx Alcohol Use: No Hx Substance Use: No Preferred Language: Hebrew Communication Ability: Effective Visual Impairment: No Limitations Hearing Ability: Normal Ratchet Setter Required: No Beliefs That Will Affect Care: None marital status: Current Living Situation: Alone current occupational status: 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 How many Children do You have: 2 How many Children do You have Comment: sons Other Information That Helps Us Care for You: No other: lives in [place] Feels Safe at Home: Yes Safety Concerns: Feels Safe At This Time Childhood Exposure to Second-Hand Smoke: Yes Diet: low salt Diet Comment: tries to adhere to a low salt diet. caffeine: Yes (2 8 oz cups of coffee daily ) Dental Care, Regularly: No Physical Activity Frequency: 1-2 Times per Week Physical Activity Frequency Comment: she enjoys going for walks. Seatbelt Use: always Sunscreen Use: Yes Assistive Devices: Walker Review of Systems Review of Systems: Per HPI. No lower extremity edema. No recent fevers or chills. No recent swollen joints or rashes. Physical Exam Physical Exam: She is alert and oriented x3. Mood affect appear normal. She answered all questions appropriately. HEENT: Sclerae are anicteric. Pupils are equal and reactive to light and accommodation. Extraocular movements were intact. Neuro: Cranial nerves intact Lungs: Lungs are clear to auscultation bilaterally. There are no rales wheezes or rhonchi. She has normal respiratory effort without use of accessory muscles. There is normal pulmonary excursion. Cardiac: The rhythm was regular. S1 and S2 were normal. There are no murmurs on examination. The PMI was not markedly displaced on palpation. Extremities: Patient has bilateral radial pulses that are equal in intensity. There is no evidence cyanosis or clubbing. There was no evidence of significant peripheral edema bilaterally. Skin: There are no rashes noted on examination today. Results & Data Vital Signs (Past 12 Hours) Vital Signs Temp Pulse Resp BP Pulse Ox O2 Del Method 09/29/24 09:14 Room Air 09/29/24 08:08 36.7 C 54 L 16 177/74 H 94 Room Air 09/29/24 03:59 36.5 C 89 17 168/78 H 95 Room Air 09/28/24 22:53 36.6 C 63 17 174/80 H 96 Room Air Laboratory Results Abnormal Lab Results 09/28/24 09/28/24 09/28/24 09:55 10:00 12:35 WBC 7.58 RBC 4.50 Hgb 13.9 Hct 41.2 MCV 91.6 MCH 30.9 MCHC 33.7 RDW Std Deviation 41.5 RDW Coeff of Nura 12.5 Plt Count 213 MPV 10.4 Immature Gran % (Auto) 0.4 Neut % (Auto) 81.4 Lymph % (Auto) 11.2 Mccracken % (Auto) 5.5 Eos % (Auto) 1.1 Baso % (Auto) 0.4 Neut # (Auto) 6.17 Lymph # (Auto) 0.85 L Mccracken # (Auto) 0.42 Eos # (Auto) 0.08 Baso # (Auto) 0.03 Immature Gran # (Auto) 0.03 Sodium 139 Potassium 4.0 Chloride 107 Carbon Dioxide 30 Anion Gap 2 L BUN 20 Creatinine 0.99 Est Cr Clr Drug Dosing Not Reportable eGFR 55.53 BUN/Creatinine Ratio 20.2 H Glucose 94 Calcium 10.0 Total Bilirubin 0.6 AST 19 ALT 15 Alkaline Phosphatase 61 Troponin I High Sens 8.4 5.3 Total Protein 6.6 Albumin 4.2 Globulin 2.4 L Albumin/Globulin Ratio 1.8 Lipase 28 Urine Color Yellow Urine Appearance Cloudy A Urine pH 6.0 Ur Specific [place] 1.017 Urine Protein Negative Urine Glucose (UA) Negative Urine Ketones Negative Urine Blood Trace H Urine Nitrite Negative Urine Bilirubin Negative Urine Urobilinogen Negative Ur Leukocyte Esterase 3+ H Urine WBC (Auto) 21-50 H Urine RBC (Auto) 0-2 U Hyaline Cast (Auto) 0-2 U Epithel Cells (Auto) 11-20 H Urine Bacteria (Auto) 3+ H Adenovirus (PCR) Not Detected B. pertussis DNA (PCR) Not Detected B.parapertussis DNA PCR Not Detected Lyme Disease Screen Positive H Lyme Tier 2 IgG Confirm Positive H Lyme Tier 2 IgM Confirm Negative C. pneumoniae DNA (PCR) Not Detected Coronavirus OC43 (PCR) Not Detected Coronavirus HKU1 (PCR) Not Detected Coronavirus 229E (PCR) Not Detected SARS-CoV-2 (PCR) Not Detected Coronavirus NL63 (PCR) Not Detected Human Metapneumovir PCR Not Detected Influenza Type A (PCR) Not Detected Influenza Type B (PCR) Not Detected M. pneumoniae (PCR) Not Detected Parainfluenza 1 (PCR) Not Detected Parainfluenza 2 (PCR) Not Detected Parainfluenza 3 (PCR) Not Detected Parainfluenza 4 (PCR) Not Detected RSV (PCR) Not Detected Entero/Rhino (PCR) Not Detected Diagnostic Findings Echocardiogram 03/19/2020: Normal LV systolic function with ejection fraction of 55 to 60%. Mild mitral regurgitation. Chest x-ray obtained the time admission revealed atelectasis versus possible pneumonia in the left base. Mild cardiomegaly. Head CT did not demonstrate any acute intracranial findings. Renal artery duplex did not demonstrate significant stenosis. PG Care Time/CCT Total # of Minutes Spent Total Time Spent with Patient: Total time spent is greater than 50% in coordination of care (as documented) at patient's floor/unit and/or counseling patient: Coding Level of Care Code 98592 INT INP/OBS CARE 3/75MIN Diagnoses Bradycardia R00.1
[2024-09-29 09:45] LABS: T4 Free Thyroxine 0.87 ng/dl (0.61-1.60)
[2024-09-29] MEDS: amLODIPine BESYLATE 5 MG TAB PO SCH ×2 (10:11→20:29)
--- NOTE | 2024-09-29 12:25 | Hospitalist Progress Note ---
Date of Service September 29, 2024 Assessment & Plan (1) Hypertension: (2) Chronic kidney disease, stage 3a: (3) Generalized weakness: Plan Maxine is a 84-year-old female who presented on 09/28 for recurrence of generalized weakness, headache, and chest pressure. Coming in for ongoing h ypertensive problems and renal ultrasound. #Episodes of generalized fatigue Episodes of extreme fatigue, headache, and occasional chest pressure Has had multiple workups for this both via PCP and in the emergency department Leading DDx includes tension headache v. hypertensive encephalopathy TSH WNL on 08/31/2024 Iron panel WNL on 09/03/2024 Most recent vitamin B12 and folate levels okay Head CT on 09/28/2024 revealed no acute findings PT/OT evaluations appreciated Fall precautions #HTN Patient is currently on lisinopril and HCTZ for her blood pressure Elevated BP likely contributing to her symptoms (both headache and chest pressure whenever it is high, and generalized fatigue when it is low after taking medications) Patient does follow with the hypertension clinic (last seen on 09/19/2024): "HTN Timeline (per most recent HTN clinic note): * She had remained stable on lisinopril 20mg daily for several years (reviewed charts back to 2019). * Admitted to [facility] on June 12, 2024, after presenting to [facility] ER with acute confusion and hypertensive emergency (BP 229/72). A CT scan revealed a mild left posterior convexity SAH. She was transferred to [facility] in [place], where repeat CT scans showed a stable SAH, and a CTA was negative for aneurysm. An MRI suggested cerebral amyloid angiopathy. After being managed in the ICU, she was discharged home on June 12, 2024. * Returned back to the [facility] ER that June 12, 2024 for weakness in her lower extremities. During her second hospital stay, her blood pressure fluctuated and was managed with hydralazine and lisinopril. Serial CT scans of her head showed no change in the SAH. Her hypertension was better controlled with an increased dose of lisinopril to 40mg daily. By the day of discharge (June 16, 2024), she was ambulating independently, felt well, and denied any head ache, focal neurological deficits, or events on telemetry. * Seen by her PCP 06/25/24 for TCM, she remained on lisinopril 40mg daily with good control. * August 31, 2024- seen in the ER for dizziness, headache and elevated BP. Given IV hydralazine and 20mg of lisinopril. She was increased from 40mg to 60mg of lisinopril and discharged home * 09/03/24- lisinopril decreased from 60mg to 40mg daily by PCP. * September 16, 2024- she visited the emergency department due to a headache and fatigue, symptoms she had been experiencing intermittently for several weeks. * She was seen by her PCP September 18, 2024 she reported a return of her headache over the past two days, along with intermittent blurry vision. He believed her symptoms were intracranial hemorrhage, tension headache, and hypertensive encephalopathy." Continue lisinopril 40 mg p.o. daily Continue HCTZ 12.5 mg p.o. daily Patient does have an upcoming appointment scheduled with nephrology on 10/14 Renal artery ultrasound ordered to rule out SINGH #Bradycardia Heart rate dipping to the high 40 bpm range in the emergency department Note: This limits potential antihypertensive medications Continuous telemetry monitoring #Chest pressure No leukocytosis; afebrile BioFire negative EKG without acute changes; troponin WNL on arrival CXR arrival revealed mild left basilar opacity which could represent pneumonia Compared against most recent CXR on 09/16; ? Occult pneumonia Last echocardiogram on 06/13/2024 revealed LVEF at 65-69% Suspect this is secondary to hypertension, will defer additional echocardiogram at this time #Asymptomatic bacteriuria UA positive on arrival; ? Contaminant Clinically, patient denies burning with urination, lower back pain, or urinary symptoms Given no leukocytosis, will defer antibiotics at this time Follow current UCx #History of subarachnoid hemorrhage Noted; patient was transferred to [facility] on 06/12 for small subarachnoid hemorrhage in the left parietal area on head CT Aspirin discontinued at that time Chronic stable conditions: HLDsimvastatin Disposition: Obs - Admit to MedSurg telemetry DNR/DNI Heart healthy, low-sodium diet VTE PPx: Teds Admission and Anticipated Discharge Date Admission Date: September 28, 2024 Results & Data Results & Data Vital Signs (Past 12 Hours) Vital Signs Temp Pulse Resp BP Pulse Ox O2 Del Method 09/29/24 11:00 36.7 C 55 L 16 176/72 H 93 Room Air 09/29/24 09:14 Room Air 09/29/24 08:08 36.7 C 54 L 16 177/74 H 94 Room Air 09/29/24 03:59 36.5 C 89 17 168/78 H 95 Room Air PG Care Time/CCT Total # of Minutes Spent Total Time Spent with Patient: Total time spent is greater than 50% in coordination of care (as documented) at patient's floor/unit and/or counseling patient: Coding Level of Care Code 20302 SUB INP/OBS CARE 3/50MIN Diagnoses Essential hypertension I10 Hypertension type: unspecified Chronic kidney disease, stage 3a N18.3 Generalized weakness R53.1 (1) Hypertension Hypertension type: unspecified Qualified Code(s): I10 - Essential (primary) hypertension
--- NOTE | 2024-09-29 12:56 | Hospitalist Progress Note ---
Date of Service September 29, 2024 Assessment & Plan (1) Hypertension: Plan: Amlodipine has been started. Lisinopril and hydrochlorothiazide have been discontinued. Renal artery ultrasound negative for critical stenoses. (2) Chronic kidney disease, stage 3a: Plan: Stable. Monitor intake and output. Serial labs (3) Generalized weakness: Plan: Present on admission. Now resolved. (4) Bradycardia: Plan: Cardiology consultation and recommendations appreciated. No indication for permanent cardiac pacemaker at this time. Free T3 and free T4 levels are normal. Plan Hopeful discharge to home tomorrow, September 30, on amlodipine. Admission and Anticipated Discharge Date Admission Date: September 28, 2024 Subjective Alert and oriented. No distress. In this age group, NINI inhibitors do not work very well and diuretics are not a good option in my opinion. She has been started on amlodipine 5 mg twice daily. Free T3 level and free T4 levels were checked and are normal. Cardiology consultation noted. No PPM indicated at this point. Renal artery ultrasound is negative for any critical stenosis. Creatinine 1.0. Head CT scan is unremarkable on admission. Hopefully she can go home tomorrow, September 30, if she responds well to the amlodipine. Review of Systems 2 Review of Systems: Constitutionalno fever or chills ENTno blurred vision, no double vision, no epistaxis, no sore throat Respiratoryno cough, no wheezing, no shortness of breath Cardiacno palpitations, no chest pain, no syncope Mario nausea, vomiting, diarrhea, melena, hematochezia GUno urinary retention, no urinary incontinence, no dysuria, no hematuria Musculoskeletalno joint pain, no muscle tenderness Skinno bruising, no rashes, no pruritus Neurono isolated weakness, no paresthesia, no weakness Psychno depression, no anxiety Physical Exam 2 Physical Exam: General-alert and oriented x3, no fever, no chills HEENT-head atraumatic and normocephalic, pupils equal and reactive to light, extraocular muscles intact Neck-no lymphadenopathy or thyromegaly, trachea midline Chest-clear to auscultation. No rales, wheezing or rhonchi Cardiac-regular rate and rhythm, normal S1 and S2 Abdomen-normal bowel sounds, no hepatosplenomegaly Extremities-no cyanosis, clubbing, or edema Neuro-cranial nerves II through XII intact, motor and sensory function within normal limits, strength symmetrical, no focal deficits Psych-normal affect, normal mood Results & Data Results & Data Vital Signs (Past 12 Hours) Vital Signs Temp Pulse Resp BP Pulse Ox O2 Del Method 09/29/24 11:00 36.7 C 55 L 16 176/72 H 93 Room Air 09/29/24 09:14 Room Air 09/29/24 08:08 36.7 C 54 L 16 177/74 H 94 Room Air 09/29/24 03:59 36.5 C 89 17 168/78 H 95 Room Air Laboratory Results 09/28/24 09:55 09/28/24 09:55 PG Care Time/CCT Total # of Minutes Spent Total Time Spent with Patient: Total time spent is greater than 50% in coordination of care (as documented) at patient's floor/unit and/or counseling patient: Coding Level of Care Code 19963 SUB INP/OBS CARE 3/50MIN Diagnoses Essential hypertension I10 Hypertension type: unspecified Chronic kidney disease, stage 3a N18.3 Generalized weakness R53.1 Bradycardia R00.1 (1) Hypertension Hypertension type: unspecified Qualified Code(s): I10 - Essential (primary) hypertension
[2024-09-30 07:50] VITALS: BP 134/76; RESP 18; TEMP 97.3; O2SAT 97
--- NOTE | 2024-09-30 09:18 | Discharge Summary ---
Discharge Summary Date of Service September 30, 2024 Principal Dx & Hospital Course #1 = Principal Diagnosis (1) Hypertension: Amlodipine 5 mg twice daily has been started. Blood pressure has improved. Lisinopril and hydrochlorothiazide have been discontinued. Renal artery ultrasound negative for critical stenoses. (2) Chronic kidney disease, stage 3a: Stable. Monitor intake and output. Serial labs (3) Generalized weakness: Present on admission. Hopefully will improve with better blood pressure control. (4) Bradycardia: Cardiology consultation and recommendations appreciated. No indication for permanent cardiac pacemaker at this time. Free T3 and free T4 levels are normal. Plan Home today, September 30, on amlodipine. Admission HPI Per Admitting Provider Maxine is an 84-year-old female with PMH of HTN, macrocytic anemia, CKD, and hypercholesteremia. She presented on 09/28 for episodes of generalized fatigue and chest pressure over the past couple months. Patient's 2 sons are at the bedside and provide most of history. They report that she has been in the emergency department multiple times for similar symptoms. Every week or so, she will develop extreme fatigue. She also reports that she will can have chest pressure both at rest and with exertion. Patient does have remote history of a minor brain bleed in May 2024 requiring transfer to [facility]. Since this time, she has had difficulty with blood pressure control. They have been tweaking her dose since around . Per her sons, she has been increased on lisinopril to the max dosage. They believe that her blood pressure spikes might be tied to her fatigue and ongoing headaches. Patient keeps a record of her home BP cuff measurements daily, and recently they have been okay (not tied fatigue). No recent change in diet. She reports she had a cheese casserole, grapes, and some meatloaf yesterday for food. She reports she does watch her salt intake at home; does not eat soup or lunch meat, but does occasionally have ham. Patient was recently treated with antibiotics for a UTI in August; Keflex prescribed on 08/31. She is not currently on antibiotics. Patient lives by herself. She reports she did not take her morning medicine today. Her sons report that they have been telling her to take her blood pressure medications at night, but she normally takes them during the day. Patient manages her own medicine at home. Most recent change was that she was started on HCTZ 12.5 mg p.o. daily on 09/18. No sick contacts. Patient drinks 2 cups of coffee in the morning. Both patient and family report a gradual decline in memory since around Thanksgiving time. Patient denies history of smoking or tobacco use. She does not use ambulatory assist devices at home; she denies any recent falls or injuries to her head or neck. She is mildly hypertensive at 151/73 at time admission; vitals otherwise stable. ED course: Aspirin 324 mg p.o. Nitroglycerin 0.4 mg SL ROS: Patient endorses HUSSEIN (whenever her BP spikes), loose stool, intermittent chest pressure, and episodes of generalized fatigue. Patient denies fever, chills, night-sweats, dizziness, lightheadedness, rashes, tick bites, chest pain, chest palpitations, pleuritic CP, SOB, abdominal pain, N/V/D, burning with urination, blood in the urine/stool, or numbness/tingling/swelling in the arms or legs. Discharge Exam General-alert and oriented x3, no fever, no chills HEENT-head atraumatic and normocephalic, pupils equal and reactive to light, extraocular muscles intact Neck-no lymphadenopathy or thyromegaly, trachea midline Chest-clear to auscultation. No rales, wheezing or rhonchi Cardiac-regular rate and rhythm, normal S1 and S2 Abdomen-normal bowel sounds, no hepatosplenomegaly Extremities-no cyanosis, clubbing, or edema Neuro-cranial nerves II through XII intact, motor and sensory function within normal limits, strength symmetrical, no focal deficits Psych-normal affect, normal mood Discharge Plan Discharge Items Patient Disposition: Home - Self-Care Reason For Visit: UNCONTROLLED HTN Discharge Diagnosis: Uncontrolled hypertension, sinus bradycardia Activity: Resume your previous activity Non-emergency contact: Primary Care Provider Call non-emergency contact if: you have any medication questions and your symptoms worsen Follow-up/Referrals: Donald Bhatti DO [Primary Care Provider] - Diet: Regular and Heart Healthy Addtl Attending Provider Instructions: Take amlodipine 5 mg twice daily. A prescription has been sent to [facility] pharmacy in [place]. Lisinopril and hydrochlorothiazide have been discontinued. Pending Studies at Discharge: No Stand-Alone Forms: Get Smart Content, Smoking Cessation Medications and DC Order Prescriptions: New amlodipine [Norvasc] 5 mg Tablet 5 mg PO BID Qty: 60 0RF Continued simvastatin 40 mg tablet 40 mg PO HS Qty: 90 3RF ferrous sulfate 325 mg (65 mg iron) tablet 325 mg PO Q OTHER DAY 90 Days Qty: 45 3RF Rx Instructions: every other evening. M,W,F ergocalciferol (vitamin D2) 1,250 mcg (50,000 unit) capsule 1,250 mcg PO WK 90 Days Qty: 12 3RF Rx Instructions: on sundays, TAKE 1 CAPSULE ONCE PER WEEK cyanocobalamin (vitamin B-12) 1,000 mcg tablet 1,000 mcg PO DAILY Qty: 90 3RF estradiol 0.01 % (0.1 mg/gram) cream 1 g vaginal WK Rx Instructions: 1 g vaginal once weekly; Discontinued lisinopril [Zestril] 40 mg tablet 40 mg PO DAILY Qty: 90 3RF hydrochlorothiazide 12.5 mg tablet 12.5 mg PO QAM Qty: 30 1RF Discharge Orders: Discharge Order (Routine); Ordered 09/30/24 Ordered By: Baldemar Ramos Admission Data Admit Date/Time: 09/28/24 12:37 Attending Provider: Baldemar Ramos Admit Provider: Danie Tesfaye Primary Care Provider: Donald Bhatti Other Providers: Danie Tesfaye; Asael Snyder Hospital Stay Data Consultations 09/28/24 11:13 ED Decision to Admit Stat 09/28/24 16:48 Consult Cardiology Routine Diagnostic Imagining Performed 09/28/24 09:21 CT head/brain wo con Stat 09/28/24 12:33 US doppler renal [US duplex renal art/vein BI] Urgent Pending Results Patient Have Any Pending Studies at Discharge: No Discharge Instructions Given to Patient (Per Discharging Provider) Take amlodipine 5 mg twice daily. A prescription has been sent to [facility] pharmacy in [place]. Lisinopril and hydrochlorothiazide have been discontinued. Total Time Total Time Spent Total Time Spent (In Minutes): 45 minutes Coding Level of Care Code 25551 INP/OBS DISCH >30 MIN Diagnoses Essential hypertension I10 Hypertension type: unspecified Chronic kidney disease, stage 3a N18.3 Generalized weakness R53.1 Bradycardia R00.1
[2024-09-30 10:52] VITALS: PULSE 60
== END 2024-09-30 11:54 | disposition home or self-care (01) ==
LOC: ED 09:01 → 2N 09:01 → SUATTDRO 12:37 → 2N 15:27 → 2S 18:36

== ENCOUNTER 2025-04-29 09:54 | Observation (INO) ==
[2025-04-29 10:32] LABS: Hematocrit (blood only) 38.3 % (37.0-47.0); Hemoglobin 14.0 g/dl (12.0-16.0); Immature Granulocytes # (auto) 0.02 K/uL (0.01-0.20); Immature Granulocytes % (auto) 0.3 %; Mean Corpuscular Hemoglobin 31.5 pg (25.0-34.0); Mean Corpuscular Volume 86.1 fL (80.0-100.0); Platelet Count 251 K/uL (130-400); RDW Standard Deviation 39.4 fL (36.4-46.3); Red Blood Count 4.45 M/uL (4.20-5.40); White Blood Count 7.04 K/ul (4.8-10.8)
--- NOTE | 2025-04-29 10:48 | XRay Report ---
XR chest 1V portable CLINICAL HISTORY: Chest pain, nonspecific COMPARISON STUDY: 04/21/2025 FINDINGS: There is stable cardiomegaly without pulmonary vascular congestion. Inspiration is shallow. There is mildly increased stranding and hazy opacity at the left base. Otherwise the lungs remain ae rated. IMPRESSION: Atelectasis versus early pneumonia left lung base. ACT 112: Negative or not required by law. Electronically signed by: Yosvany Darby M.D. 04/29/2025 10:47 AM
[2025-04-29 10:59] LABS: INR 1.0 (0.9-1.1); Partial Thromboplastin Time 25 Seconds (21-31); Prothrombin Time 10.7 Seconds (9.0-12.0)
[2025-04-29 11:04] LABS: Alanine Aminotransferase 15.0 U/L (7-52); Albumin Globulin Ratio 1.4 (0.9-2); Albumin Level 3.9 gm/dl (3.4-5.0); Alkaline Phosphatase 60.0 U/L (34-104); Anion Gap 9.0 (3-11); Bilirubin,Total 0.7 mg/dl (0.2-1.0); Blood Urea Nitrogen 17.0 mg/dl (6-23); Calcium 10.0 mg/dl (8.6-10.3); Carbon Dioxide 23.0 mmol/L (21-32); Chloride 97.0 mmol/L (98-107); Creatinine Clr Calc Pharmacy 43.2 ml/min; Globulin 2.8 gm/dl (2.5-4.0); Glucose 97.0 mg/dl (70-99(Fasting)); Potassium 4.0 mmol/L (3.5-5.1); Sodium 129.0 mmol/L (136-145); Total Protein 6.7 gm/dl (6.0-8.3)
[2025-04-29 11:13] LABS: Influenza A virus by PCR Negative (Neg); Influenza B virus by PCR Negative (Neg); SARS CoV2 RNA(COVID-19) Ceph NEGATIVE (Negative)
--- NOTE | 2025-04-29 11:20 | Emergency Department Note ---
History of Present Illness General Chief complaint: Illness Stated complaint: FATIGUE, HEADACHE Time Seen by Provider: 04/29/25 11:06 History of Present Illness Maximum Pain Intensity: 3 This is an 84-year-old female who presents to the emergency department via private vehicle accompanied by her son with complaints of "fatigue, headache, chest pain, altered mental status". History predominantly obtained from son at bedside but also from patient. Reportedly she was quite tired yesterday and this morning seemed "out of it". Son notes that this was worse notified when he called his mother and then he went to check on her. He notes that she seemed quite weak diffusely and not unilateral. He did not notice any deficits. No speech trouble. Patient also reportedly noted some chest pain. They do note recent visit here for UTI and patient has been compliant with antibiotics. Patient currently lives alone. No reported fevers. Home Medications Medication Instructions Recorded Confirmed Type simvastatin 40 mg tablet 40 mg PO HS #90 tabs 07/10/24 04/29/25 Rx cyanocobalamin (vitamin B-12) 1,000 mcg PO DAILY #90 tabs 09/18/24 04/29/25 Rx 1,000 mcg tablet multivitamin (Daily Multi-Vitamin 1 tab PO DAILY 10/07/24 04/29/25 History tablet) estradiol 0.01% (0.1 mg/gram) 1 g vaginal WK #42.5 grams 12/09/24 04/29/25 Rx vaginal cream amlodipine 2.5 mg tablet 2.5 mg PO DAILY 90 days #90 tabs 02/03/25 04/29/25 Rx hydrochlorothiazide 12.5 mg tablet 12.5 mg PO QAM #30 tabs 04/06/25 04/29/25 Rx lisinopril 10 mg tablet 10 mg PO DAILY #90 tabs 04/15/25 04/29/25 Rx cephalexin 500 mg capsule 500 mg PO Q6H 10 days #40 caps 04/21/25 04/29/25 Rx ergocalciferol (vitamin D2) 1,250 1,250 mcg PO WK 90 days #12 caps 04/23/25 04/29/25 Rx mcg (50,000 unit) capsule Allergies Allergy/AdvReac Type Severity Reaction Status Date / Time Penicillins Allergy Unknown HAPPENED Verified 04/10/25 14:14 50 YEARS AGO. Past Med/Surg History Problem List (Updated 04/29/25 @ 17:07 by Jaden Pathak PA-C) Hyponatremia (Acute) Acute UTI (Acute) COVID-19 (Acute) History of subarachnoid hemorrhage Cognitive changes Fatigue (Chronic) Bradycardia Macrocytic anemia with vitamin B12 deficiency Hypercholesteremia (Chronic) Hypertension (Chronic) Osteopenia Melanoma (~08/2020) right forearm, resected Medical History Pessary maintenance Generalized weakness History of anemia Hospital discharge follow-up Chest pain Iron deficiency anemia Chronic kidney disease, stage 3a Anemia Obesity (BMI 30.0-34.9) Positive Lyme disease serology Prolapsed bladder Prolapse of vaginal meza Rosacea Urge incontinence Vitamin D deficiency Hypertensive emergency Vision blurring Headache Menopause Vitamin D deficiency Hypertension Surgical History History of colonoscopy (~07/29/09) History of dilation and curettage History of tooth extraction Family History Sister Malignant melanoma Hypertension Mother Hypertension Diabetes Cardiac disorder Father Lung cancer Tobacco use Brother Tobacco use Lung cancer Brother Aortic aneurysm Tobacco use Cancer Sister Cancer Brother Hypertension Recurrent nephrolithiasis Denies family history of Colon cancer Breast cancer Social History Smoking Status: Never smoker Second Hand Exposure: No; Do You Dip or Chew Tobacco: No; Hx Alcohol Use: No Hx Substance Use: No Preferred Language: Yoruba Communication Ability: Effective Visual Impairment: No Limitations Hearing Ability: Normal Corporate Accounting Manager Required: No Beliefs That Will Affect Care: None marital status: Current Living Situation: Alone current occupational status: retired 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 How many Children do You have: 2 How many Children do You have Comment: sons other: lives in [place] Feels Safe at Home: Yes Childhood Exposure to Second-Hand Smoke: Yes Diet: low salt Diet Comment: tries to adhere to a low salt diet. caffeine: Yes (2 8 oz cups of coffee daily ) Dental Care, Regularly: No Physical Activity Frequency: 1-2 Times per Week Physical Activity Frequency Comment: she enjoys going for walks. Seatbelt Use: always Sunscreen Use: Yes Assistive Devices: Glasses Review of Systems A total of 10 systems reviewed and were otherwise negative Physical Exam Vital Signs Vital Signs - 24 hr 04/29/25 09:55 04/29/25 10:43 04/29/25 10:43 Temperature 36.5 C Temperature Source Temporal Artery Scan Pulse Rate 59 L Pulse Rate [Apical] 52 L Pulse Rate from SpO2 Sensor Respiratory Rate 18 18 Blood Pressure 112/62 Blood Pressure [Right Arm] 129/63 Blood Pressure Mean 78 Blood Pressure Mean [Right Arm] 85 Pulse Oximetry 97 94 94 Oxygen Delivery Method Room Air Room Air Room Air Sepsis New/Unexplained Change in Mental Status No Sepsis Action Taken by Nursing No Action Required 04/29/25 11:00 04/29/25 11:33 Temperature Temperature Source Pulse Rate 51 L 50 L Pulse Rate [Apical] Pulse Rate from SpO2 Sensor 51 L Respiratory Rate 14 Blood Pressure 131/63 Blood Pressure [Right Arm] Blood Pressure Mean 102 Blood Pressure Mean [Right Arm] Pulse Oximetry 96 Oxygen Delivery Method Room Air Sepsis New/Unexplained Change in Mental Status Sepsis Action Taken by Nursing VITAL SIGNS - Vital signs and nursing notes were reviewed. Stable and afebrile. GENERAL - 84-year-old female appearing her stated age who is in no acute distress. Communicates well with provider and answers questions appropriately. SKIN - Without rashes. No meningeal or petechial rash. HEAD - NC/AT. EYES - PERRL with EOMI bilaterally. Sclera anicteric. EARS - No deformities of external structures noted on gross examination bilaterally. NOSE - Midline and without cyanosis. No epistaxis or purulent drainage noted. MOUTH/OROPHARYNX - Without perioral cyanosis. NECK - Neck with FROM. No nuchal rigidity. LUNGS - CTA CARDIAC - RRR ABDOMEN - Abdominal contour normal without pulsations or visible masses. BS normoactive all four quadrants. No tenderness, palpable masses, hepatosplenomegaly, or ascites noted. EXTREMITIES - No clubbing or peripheral cyanosis. +5/5 strength noted in UE/LE bilaterally. NEUROLOGIC - Cranial nerves II through XII grossly intact. PSYCH -alert, pleasant on exam Course Administered Medications Doxycycline Hyclate (Doxycycline Hyclate 100 Mg Cap) 100 mg PO BID GUILLAUME Stop: 05/04/25 20:59 Last Admin: 04/29/25 21:00 Dose: 100 mg Documented By: ATS Simvastatin (Simvastatin 40 Mg Tab) 40 mg PO HS GUILLAUME Stop: 05/29/25 20:59 Last Admin: 04/29/25 21:01 Dose: 40 mg Documented By: ATS Discontinued Medications Doxycycline Hyclate (Doxycycline Hyclate 100 Mg Cap) 100 mg PO NOW STA Stop: 04/29/25 12:49 Last Admin: 04/29/25 13:47 Dose: 100 mg Documented By: kelsey Ceftriaxone Sodium (Rocephin) 2,000 mg in 50 mls @ 100 mls/hr IV NOW STA Stop: 04/29/25 13:17 Last Infusion: 04/29/25 14:29 Dose: Infused Documented By: Admin: 04/29/25 13:47 Dose: 100 mls/hr Documented By: kelsey Medical Decision Making Laboratory Data 04/29/25 10:15 04/29/25 10:15 Lab Results 04/29/25 04/29/25 04/29/25 Range/Units 10:15 12:12 12:19 WBC 7.04 (4.8-10.8) K/ul RBC 4.45 (4.20-5.40) M/uL Hgb 14.0 (12.0-16.0) g/dl Hct 38.3 (37.0-47.0) % MCV 86.1 (80.0-100.0) fL MCH 31.5 (25.0-34.0) pg MCHC 36.6 H (32.0-36.0) g/dL RDW Std Deviation 39.4 (36.4-46.3) fL RDW Coeff of Nura 12.5 (11.5-14.5) % Plt Count 251 (130-400) K/uL MPV 9.8 (9.4-12.4) fL Immature Gran % (Auto) 0.3 % Neut % (Auto) 78.6 % Lymph % (Auto) 12.6 % [place] % (Auto) 7.2 % Eos % (Auto) 0.9 % Baso % (Auto) 0.4 % Neut # (Auto) 5.53 (1.40-6.50) K/uL Lymph # (Auto) 0.89 L (1.20-3.40) K/uL [place] # (Auto) 0.51 (0.11-0.59) K/uL Eos # (Auto) 0.06 (0.00-0.50) K/uL Baso # (Auto) 0.03 (0.00-0.20) K/uL Immature Gran # (Auto) 0.02 (0.01-0.20) K/uL PT 10.7 (9.0-12.0) Seconds INR 1.0 (0.9-1.1) APTT 25 (21-31) Seconds PTT Ratio 0.9 Sodium 129 L (136-145) mmol/L Potassium 4.0 (3.5-5.1) mmol/L Chloride 97 L (98-107) mmol/L Carbon Dioxide 23 (21-32) mmol/L Anion Gap 9 (3-11) BUN 17 (6-23) mg/dl Creatinine 1.00 (0.6-1.2) mg/dl Est Cr Clr Drug Dosing 43.2 ml/min eGFR 54.87 BUN/Creatinine Ratio 17.0 (10-20) Glucose 97 (70-99(Fasting)) mg/dl Lactate 1.0 (0.4-2.0) mmol/L Calcium 10.0 (8.6-10.3) mg/dl Total Bilirubin 0.7 (0.2-1.0) mg/dl AST 19 (13-39) U/L ALT 15 (7-52) U/L Alkaline Phosphatase 60 (34-104) U/L Total Creatine Kinase 87 (26-192) U/L Troponin I High Sens 6.6 (0-14) pg/ml Total Protein 6.7 (6.0-8.3) gm/dl Albumin 3.9 (3.4-5.0) gm/dl Globulin 2.8 (2.5-4.0) gm/dl Albumin/Globulin Ratio 1.4 (0.9-2) Procalcitonin < 0.02 (0-0.5) ng/ml Urine Color Dark Yellow Urine Appearance Turbid A (Clear) Urine pH 7.0 (4.5-7.5) Ur Specific [place] 1.020 (1.000-1.030) Urine Protein 1+ H (Negative) Urine Glucose (UA) Negative (Negative) Urine Ketones 1+ H (Negative) Urine Blood Negative (Negative) Urine Nitrite Negative (Negative) Urine Bilirubin 1+ H (Negative) Urine Urobilinogen Negative (Negative) Ur Leukocyte Esterase 3+ H (Negative) Urine WBC (Auto) >50 H (0-5) /hpf Urine RBC (Auto) 3-5 H (0-2) /hpf U Hyaline Cast (Auto) >20 H (0-2) /lpf U Epithel Cells (Auto) 11-20 H (0-2) /hpf Urine Bacteria (Auto) 4+ H (None Seen) Hyaline Casts Present A (None Presnt) /lpf Granular Casts Present A (None Prsent) /lpf Urine Mucus Present A (None Prsent) Urine Comment SARS-CoV-2 (PCR) NEGATIVE (Negative) Influenza Type A (PCR) Negative (Neg) Influenza Type B (PCR) Negative (Neg) RSV (RT-PCR) Negative (Neg) Imaging Data Radiologist's Impression: Head CT 04/29/25 11:20 CT head/brain wo con CLINICAL HISTORY: ams, weakness. TECHNIQUE: Multiple axial CT images of the head were obtained without contrast. A dose lowering technique was utilized adhering to the principles of ALARA. CT DOSE: 625.8 mGy.cm COMPARISON: 02/13/2025 FINDINGS: No intracranial hemorrhage seen. No mass effect, midline shift, or hydrocephalus. No skull fracture seen. Visualized paranasal sinuses and mastoid air cells are clear. IMPRESSION: No acute findings. ACT 112: Negative or not required by law. The above report was generated using voice recognition software. It may contain grammatical, syntax or spelling errors. Electronically signed by: Yosvany Darby M.D. 04/29/2025 12:56 PM [facility] Narrative Patient was seen and evaluated as above in room A04. Review was performed of nursing notes and vital signs. I did review pertinent previous visits and patient history. After obtaining a thorough history and physical examination the above work up was performed. Patient presents to us today for evaluation of the above symptoms. She is well-appearing and nontoxic on assessment. Son notes that she is diffusely weak, and is a bit altered today. On my assessment there is no focal neurologic deficit. NIHSS is 0. There are no signs of head trauma or injury. Options of care were discussed with patient and son. IV access was established. Labs were drawn. There is no leukocytosis or concerning anemia. No evidence of kidney or liver failure but will note hyponatremia 129 which is new. Troponin within normal range. Procalcitonin undetectable making sepsis less likely. Urinalysis concern for UTI. Chest x-ray concerning for possible pneumonia. EKG per my interpretation reveals sinus bradycardia at a rate of 59 bpm. QTc 423. QRS 92. No ST elevation on this rhythm tracing. Noting the patient's continued findings to suggest UTI now with altered mental status and diffuse weakness to believe that further evaluation and management in the inpatient setting is warranted. Will cover for UTI but also pneumonia as well. Ceftriaxone plus Doxy ordered. CT head negative for acute process as well. Chest x-ray as above as well. Case discussed with the hospitalist service. Please refer to further documentation regarding her stay. GCS: 15 In the evaluation and treatment of this patient the following differential diagnoses were entertained: VA, PE, CVA, TIA, dehydration, UTI, pyelonephritis, among others. Impression & Plan Acute UTI, Fatigue, Hyponatremia Discharge Plan Visit Data Chief Complaint: Illness Stated Complaint: FATIGUE, HEADACHE ED Provider: Tab Wagner ED Midlevel Provider: Jaden Pathak Discharge Problem: Acute UTI, Fatigue, Hyponatremia Patient Disposition: Admitted As Inpatient Condition: Good Discharge Instructions Interventions: ED Discharge Assessment Last Done: 04/29/25 16:03 Addendum April 29, 2025 23:50 I was consulted by the Advanced Practice Provider and was substantively involved in the patient's visit.This includes aspects of the HPI, MDM, diagnostic interpretations, and disposition/plan. I discussed the case with the RODNEY and agree with the findings and plan as documented in RODNEY Zo's note.
[2025-04-29 11:43] LABS: Creatine Kinase 87.0 U/L (26-192)
--- NOTE | 2025-04-29 12:58 | CT Scan Report ---
CT head/brain wo con CLINICAL HISTORY: ams, weakness. TECHNIQUE: Multiple axial CT images of the head were obtained without contrast. A dose lowering tech nique was utilized adhering to the principles of ALARA. CT DOSE: 625.8 mGy.cm COMPARISON: 02/13/2025 FINDINGS: No intracranial hemorrhage seen. No mass effect, midline shift, or hydrocephalus. No skull fracture seen. Visualized paranasal sinuses and mastoid air cells are clear. IMPRESSION: No acute findings. ACT 112: Negative or not required by law. The above report was generated using voice recognition software. It may contain grammatical, syntax o r spelling errors. Electronically signed by: Yosvany Darby M.D. 04/29/2025 12:56 PM
[2025-04-29] MEDS ORDERED: ONDANSETRON INJ 2 MG/ML 2 ML VIAL IV PRN (13:43)
[2025-04-29] MEDS ORDERED: MELATONIN 3 MG TAB PO PRN (13:43)
[2025-04-29] MEDS ORDERED: ACETAMINOPHEN 325 MG TAB PO PRN (13:43)
[2025-04-29] MEDS: cefTRIAXone SODIUM 2,000 MG/50 ML BAG IV STA (13:47)
[2025-04-29] MEDS: DOXYCYCLINE HYCLATE 100 MG CAP PO STA (13:47)
--- NOTE | 2025-04-29 14:02 | History & Physical Report ---
"Date of Service April 29, 2025 Assessment & Plan (1) Hyponatremia: (2) Acute UTI: (3) COVID-19: (4) History of subarachnoid hemorrhage: Plan This is an 84 year old female with past medical history of HTN, B12 deficiency, melanoma who presented to the ED on 04/29/2025 for altered mental status. While in the ED, her head CT was negative. Her CXR read as mild pneumonia vs atelectasis. Her CBC was w/o leukocytosis. BMP w/ Na of 129, remainder of electrolytes stable. Procal negative. Testing for COVID, RSV, and Flu were negative. LFTs WNL, troponin negative. UA is pending. #Altered mental status | weakness Son reports confusion this AM LIAISON PLANNER - has resolved at time of admission. Was recently in ED 04/21 where she was + for COVID & #E. Coli UTI. Head CT negative. CXR concern for mild pneumonia vs atelectasis. s/p Rocephin + Doxy in ED. UA pending BMP w/ Na of 129 Remainder of workup negative including no leukocytosis, stable kidney function, neg troponin, neg procal, LFTs WNL. COVID/RSV/Flu all negative. Suspect AMS is combination of hyponatremia + recent illness. PT/OT consulted, appreciate recommendations #Hyponatremia Following ED trip last week, patient has been drinking ~ 1 gallon of water a day suspect low sodium secondary to overhydrating Na 129 on admission, repeat in AM Urine osmol, Urine Na ordered. Educated patient on appropriate fluid intake #UTI UC + for E. Coli on 04/21 Has been on Keflex outpatient s/p Rocephin in ED --> resume Keflex in AM of 04/30. Repeat UA pending, BC pending. #COVID-19 | CAP tested positive on 04/21, asymptomatic. isolation precautions CXR w/ concern for mild pneumonia vs atelectasis. Lung exam appears clear given recent viral respiratory infection, can cover for CAP w/ Doxycycline 100mg BID #HTN BP normotensive at time of admission. Hold HCTZ but continue amlodipine & Lisinopril #B12 deficiency - B12 supplement, check levels in AM along w/ folate #Vitamin D deficiency - Vitamin D supplement, check levels in AM DVT prophylaxis: SCDs's; caution chemical w/ hx of SAH Code: DNR/DNI Case was discussed with Dr. Ramos at time of admission. Updated sister & son @ bedside. History of Present Illness Primary Care Provider: Donald Bhatti, This is an 84 year old female with past medical history of HTN, B12 deficiency, melanoma who presented to the ED on 04/29/2025 for altered mental status. Maxine was seen & examined this afternoon with her son & sister at bedside. Patient's son reports she was very confused this AM which was what prompted her to come to the hospital. The patient reports that she feels weak and generally not well. Aside from not feeling well, she denies any LE edema, dysuria, hematuria, change in bowel movements, SOB, or cough. Reports she did feel nauseous this AM with chest discomfort but has since resolved. She states she has been eating well. she also states that she was told to increase her water intake when she was in the ED a week ago & has been drinking about a gallon of water daily. She denies any numbness or tingling in her extremities. Denies any dizziness. She reports she has been compliant with her Keflex at home for her UTI and she did take a dose this morning. She was recently in the ED on 04/21/2025 for similar symptoms and was found to have E. Coli UTI + tested positive for COVID-19. While in the ED, her head CT was negative. Her CXR read as mild pneumonia vs atelectasis. Her CBC was w/o leukocytosis. BMP w/ Na of 129, remainder of electrolytes stable. Procal negative. Testing for COVID, RSV, and Flu were negative. LFTs WNL, troponin negative. UA is pending. Code discussion did take place with the patient and she does confirm she is a DNR/DNI. Allergies Allergy/AdvReac Type Severity Reaction Status Date / Time Penicillins Allergy Unknown HAPPENED Verified 04/10/25 14:14 50 YEARS AGO. Home Medications Medication Instructions Recorded Confirmed Type simvastatin 40 mg tablet 40 mg PO HS #90 tabs 07/10/24 04/29/25 Rx cyanocobalamin (vitamin B-12) 1,000 mcg PO DAILY #90 tabs 09/18/24 04/29/25 Rx 1,000 mcg tablet multivitamin (Daily Multi-Vitamin 1 tab PO DAILY 10/07/24 04/29/25 History tablet) estradiol 0.01% (0.1 mg/gram) 1 g vaginal WK #42.5 grams 12/09/24 04/29/25 Rx vaginal cream amlodipine 2.5 mg tablet 2.5 mg PO DAILY 90 days #90 tabs 02/03/25 04/29/25 Rx hydrochlorothiazide 12.5 mg tablet 12.5 mg PO QAM #30 tabs 04/06/25 04/29/25 Rx lisinopril 10 mg tablet 10 mg PO DAILY #90 tabs 04/15/25 04/29/25 Rx cephalexin 500 mg capsule 500 mg PO Q6H 10 days #40 caps 04/21/25 04/29/25 Rx ergocalciferol (vitamin D2) 1,250 1,250 mcg PO WK 90 days #12 caps 04/23/25 04/29/25 Rx mcg (50,000 unit) capsule Past Med/Surg History Problem List (Updated 04/29/25 @ 14:02 by Roberta Pa PA-C) Hyponatremia Acute UTI (Acute) COVID-19 (Acute) History of subarachnoid hemorrhage Cognitive changes Fatigue (Chronic) Bradycardia Macrocytic anemia with vitamin B12 deficiency Hypercholesteremia (Chronic) Hypertension (Chronic) Osteopenia Melanoma (~08/2020) right forearm, resected Medical History (Updated 04/29/25 @ 14:02 by Roberta Pa PA-C) Pessary maintenance Generalized weakness History of anemia Hospital discharge follow-up Chest pain Iron deficiency anemia Chronic kidney disease, stage 3a Anemia Obesity (BMI 30.0-34.9) Positive Lyme disease serology Prolapsed bladder Prolapse of vaginal meza Rosacea Urge incontinence Vitamin D deficiency Hypertensive emergency Vision blurring Headache Menopause Vitamin D deficiency Hypertension Surgical History History of colonoscopy (~07/29/09) History of dilation and curettage History of tooth extraction Family History Sister Malignant melanoma Hypertension Mother Hypertension Diabetes Cardiac disorder Father Lung cancer Tobacco use Brother Tobacco use Lung cancer Brother Aortic aneurysm Tobacco use Cancer Sister Cancer Brother Hypertension Recurrent nephrolithiasis Denies family history of Colon cancer Breast cancer Social History Smoking Status: Never smoker Second Hand Exposure: Yes; Do You Dip or Chew Tobacco: No; Hx Alcohol Use: No Hx Substance Use: No Preferred Language: Hebrew Communication Ability: Effective Visual Impairment: No Limitations Hearing Ability: Normal Warrant Server Required: No Beliefs That Will Affect Care: None marital status: Current Living Situation: Alone current occupational status: 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 How many Children do You have: 2 How many Children do You have Comment: sons other: lives in [place] Feels Safe at Home: Yes Childhood Exposure to Second-Hand Smoke: Yes Diet: low salt Diet Comment: tries to adhere to a low salt diet. caffeine: Yes (2 8 oz cups of coffee daily ) Dental Care, Regularly: No Physical Activity Frequency: 1-2 Times per Week Physical Activity Frequency Comment: she enjoys going for walks. Seatbelt Use: always Sunscreen Use: Yes Assistive Devices: Walker Physical Exam Physical Exam: General: NAD, VS: BP 129/63; P50; R18; T36.5C Resp: normal respiratory effort, lungs clear to auscultation CV: RRR, no murmur Abd: normal bowel sounds, non tender Extremities: Moves all extremities, no edema Neuro: A&O x3, sensation intact. No facial droop or slurred speech. Skin: intact, no lesions noted Results & Data Results & Data Vital Signs (Past 12 Hours) Vital Signs Temp Pulse Pulse Resp BP BP Pulse Ox 04/29/25 11:33 50 L 04/29/25 10:43 52 L 18 129/63 94 04/29/25 10:43 94 04/29/25 09:55 36.5 C 59 L 18 112/62 97 O2 Del Method 04/29/25 11:33 04/29/25 10:43 Room Air 04/29/25 10:43 Room Air 04/29/25 09:55 Room Air Supervising Physician Co-Signing Physician Notes The patient was seen by me. The chart was reviewed. Case discussed with NILSA De León. Agree with assessment and plan PG Care Time/CCT Total # of Minutes Spent Total Time Spent with Patient: Total time spent is greater than 50% in coordination of care (as documented) at patient's floor/unit and/or counseling patient: Coding Level of Care Code 11470 INT INP/OBS CARE MIN Diagnoses Hyponatremia E87.1 Acute UTI N39.0 COVID-19 U07.1 History of subarachnoid hemorrhage Z86.79"
[2025-04-29 14:34] LABS: Appearance Urine Turbid (Clear); Bacteria Urine Automated 4+ (None Seen); Cast Urine Automated >20 /lpf (0-2); Glucose Urine UA Negative (Negative); WBC Urine Automated >50 /hpf (0-5)
[2025-04-29] MEDS: DOXYCYCLINE HYCLATE 100 MG CAP PO SCH (21:00)
[2025-04-29] MEDS: SIMVASTATIN 40 MG TAB PO SCH (21:01)
[2025-04-29 23:53] VITALS: TEMP 97.7
[2025-04-30 06:35] LABS: Hematocrit (blood only) 37.5 % (37.0-47.0); Hemoglobin 13.1 g/dl (12.0-16.0); Mean Corpuscular Hemoglobin 30.3 pg (25.0-34.0); Mean Corpuscular Volume 86.6 fL (80.0-100.0); Platelet Count 215 K/uL (130-400); RDW Standard Deviation 39.3 fL (36.4-46.3); Red Blood Count 4.33 M/uL (4.20-5.40); White Blood Count 5.80 K/ul (4.8-10.8)
[2025-04-30 07:08] LABS: Anion Gap 8.0 (3-11); Blood Urea Nitrogen 17.0 mg/dl (6-23); Calcium 9.5 mg/dl (8.6-10.3); Carbon Dioxide 25.0 mmol/L (21-32); Chloride 98.0 mmol/L (98-107); Creatinine Clr Calc Pharmacy 48.1 ml/min; Glucose 95.0 mg/dl (70-99(Fasting)); Magnesium 1.7 mg/dl (1.7-2.4); Potassium 3.8 mmol/L (3.5-5.1); Sodium 131.0 mmol/L (136-145)
[2025-04-30 07:09] VITALS: BP 132/68; RESP 16; O2SAT 98
[2025-04-30 07:28] LABS: Folate (Folic Acid),Ser orPlas > 22.30 ng/ml (>5.38)
[2025-04-30 07:29] LABS: Vitamin B12 > 1500 pg/ml (180-914)
[2025-04-30] MEDS: MULTIVITAMIN TAB PO SCH (09:25)
[2025-04-30] MEDS: CYANOCOBALAMIN (B-12) 500 MCG TABLET PO SCH (09:25)
[2025-04-30] MEDS: CEFEPIME 2000MG 2,000 MG/20 ML SYR IV SCH (10:31)
--- NOTE | 2025-04-30 11:45 | Communication Note ---
Date of Service: April 30, 2025 By CMS guidelines, a determination that the admission or continued stay is not medically necessary has been made by a member of the UR committee and a ph ysician for this hospital stay, therefore a Code 44 will be completed and the Inpatient admission will be changed to outpatient.
--- NOTE | 2025-04-30 11:46 | Discharge Summary ---
"Discharge Summary Date of Service April 30, 2025 Principal Dx & Hospital Course #1 = Principal Diagnosis (1) Hyponatremia: (2) Acute UTI: (3) COVID-19: (4) History of subarachnoid hemorrhage: Plan This is an 84 year old female with past medical history of HTN, B12 deficiency, melanoma who presented to the ED on 04/29/2025 for altered mental status. 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 Was recently in ED 04/21 where she was + for COVID & #E. Coli UTI. Head CT negative; CXR concern for mild pneumonia vs atelectasis. s/p Rocephin + Doxy in ED. UA + for infection w/ UC growing E. Coli; BC neg @ 24 hours. Remainder of workup negative including no leukocytosis, stable kidney function, neg troponin, neg procal, LFTs WNL. COVID/RSV/Flu all negative. Suspect AMS is combination of hyponatremia + recent illness. PT/OT consulted---> recommending return home. #Hyponatremia Following ED trip last week, patient has been drinking ~ 1 gallon of water a day suspect low sodium secondary to overhydrating Na 129 on admission, improvement to 131. Urine osmol 614 , Urine Na 88. Educated patient on appropriate fluid intake #UTI Has been on Keflex outpatient from + UA w/ no culture results. UC + for E. Coli Sent home on Cipro BID x 4 days to complete course for UTI + pneumonia #COVID-19 | CAP tested positive on 04/21, asymptomatic. CXR w/ concern for mild pneumonia vs atelectasis. Lung exam appears clear abx as above #HTN BP normotensive at time of admission. Resume home meds on discharge. #B12 deficiency - B12 supplement, B12 elevated, Folate WNL. #Vitamin D deficiency - Vitamin D supplement, check levels in AM Discharged home 04/30. Admission HPI Per Admitting Provider This is an 84 year old female with past medical history of HTN, B12 deficiency, melanoma who presented to the ED on 04/29/2025 for altered mental status. Maxine was seen & examined this afternoon with her son & sister at bedside. Patient's son reports she was very confused this AM which was what prompted her to come to the hospital. The patient reports that she feels weak and generally not well. Aside from not feeling well, she denies any LE edema, dysuria, hematuria, change in bowel movements, SOB, or cough. Reports she did feel nauseous this AM with chest discomfort but has since resolved. She states she has been eating well. she also states that she was told to increase her water intake when she was in the ED a week ago & has been drinking about a gallon of water daily. She denies any numbness or tingling in her extremities. Denies any dizziness. She reports she has been compliant with her Keflex at home for her UTI and she did take a dose this morning. She was recently in the ED on 04/21/2025 for similar symptoms and was found to have E. Coli UTI + tested positive for COVID-19. While in the ED, her head CT was negative. Her CXR read as mild pneumonia vs atelectasis. Her CBC was w/o leukocytosis. BMP w/ Na of 129, remainder of electrolytes stable. Procal negative. Testing for COVID, RSV, and Flu were negative. LFTs WNL, troponin negative. UA is pending. Code discussion did take place with the patient and she does confirm she is a DNR/DNI. Discharge Exam General: NAD, VS: BP 132/68; P61; T36.5C Resp: normal respiratory effort Extremities: Moves all extremities, no edema Neuro: A&O x3 Skin: intact, no lesions noted Discharge Plan Discharge Items Patient Disposition: Home - Self-Care Reason For Visit: AMS Discharge Diagnosis: UTI Condition on Discharge: Good Activity: Resume your previous activity Non-emergency contact: Primary Care Provider Call non-emergency contact if: you have any medication questions and your symptoms worsen Follow-up/Referrals: Donald Bhatti DO [Primary Care Provider] - 05/07/25 11:00 am Diet: Regular Addtl Attending Provider Instructions: Ms. Salazar, You were recently hospitalized for weakness and confusion. You were found to have a low sodium that has improved overnight. You were also found to have an E. Coli urinary tract infection. There was concern for possible pneumonia on chest x-ray however you endorsed no cough or shortness of breath. Upon discharge, the antibiotic will cover both the urinary tract infection and the pneumonia. Medications: Your medication list has been reviewed and reconciled upon discharge to ensure accuracy and continuity of care. An updated list of all your medications is included with your hospital discharge paperwork. Please review this list closely, and make note of any changes. Ciprofloxacin has been sent in to your pharmacy. Please take this twice daily for 4 days. Your first dose at home will be this evening, 04/30. This may cause GI upset so you can administer with food. This antibiotic does interact with your simvastatin that you take for your cholesterol. Please hold the simvastatin until you are finished with the ciprofloxacin. You may resume the medication the following day. In general, we recommend you decrease your water intake. We recommend drinking about 4- 6 water bottles (16oz) daily. Your sodium levels were low secondary to over hydrating yourself. Take your medications as instructed; do not skip a dose of your medicines. Make sure all of your doctors know every medicine you are taking (including kzmf-[id number] medicines, vitamins, and supplements). Call your primary care provider before taking any new medicines (including over- the-counter medicines, vitamins, and supplements), because some of these may interact with your current medications, or may make your symptoms worse. Tell your primary care provider if you cannot afford your medications. Activity: You can do normal everyday activities as your body allows. Take rest breaks if you feel tired. Do not overexert. Stop activity if you have pain, shortness of breath or feel dizzy. Follow-up appointments: Make an appointment with your primary care physician within one week of discharge. A copy of this summary will be sent to them. Every time you see your primary care physician, or any other doctor, bring your medication list, and a list of questions. You have blood cultures pending at the time of discharge, and it takes 5 days to get final results. If they turn positive you will be notified, you can also check in with your PCP or the [facility] portal. However, given your symptoms I do not expect they will be positive. CONTACT YOUR PRIMARY CARE PROVIDER if you experience any of the following: Shortness of breath or difficulty breathing Fevers or chills Feeling tired with normal activity or experiencing dizziness or fainting Difficulty following your treatment plan, or difficulty taking medications CALL 911 OR GO TO THE EMERGENCY DEPARTMENT if you experience any of the following: Severe abdominal pain or nausea/vomiting Severe chest pain, or chest pain that radiates (moves) to your jaw or arm Sudden, severe shortness of breath or difficulty breathing Thank you for allowing us to participate in your care. Pending Studies at Discharge: Yes Studies:: urine & blood culture final results. Stand-Alone Forms: My [facility] [employer], Smoking Cessation Medications and DC Order Prescriptions: New ciprofloxacin HCl 500 mg tablet 500 mg PO BID Qty: 8 0RF Continued estradiol 0.01 % (0.1 mg/gram) cream 1 g vaginal WK Qty: 42.5 0RF Rx Instructions: 1 g vaginal once weekly; hydrochlorothiazide 12.5 mg tablet 12.5 mg PO QAM Qty: 30 4RF lisinopril 10 mg tablet 10 mg PO DAILY Qty: 90 2RF ergocalciferol (vitamin D2) 1,250 mcg (50,000 unit) capsule 1,250 mcg PO WK 90 Days Qty: 12 3RF Rx Instructions: on sundays, TAKE 1 CAPSULE ONCE PER WEEK cyanocobalamin (vitamin B-12) 1,000 mcg tablet 1,000 mcg PO DAILY Qty: 90 3RF Rx Instructions: Unable to verify OTC meds at this date/time. multivitamin [Daily Multi-Vitamin] Tablet 1 tab PO DAILY Patient Comments: 02/13- otc unable to verify amlodipine 2.5 mg tablet 2.5 mg PO DAILY 90 Days Qty: 90 3RF Held simvastatin 40 mg tablet 40 mg PO HS Qty: 90 3RF Hold Instructions: Resume on 05/05/25. Hold until finished with your antibiotic Discontinued cephalexin 500 mg capsule 500 mg PO Q6H 10 Days Qty: 40 0RF Discharge Orders: Discharge Order (Routine); Ordered 04/30/25 Ordered By: Roberta Pa Admission Data Admit Date/Time: 04/29/25 13:43 Attending Provider: Baldemar Ramos Admit Provider: Baldemar Ramos Primary Care Provider: Donald Bhatti Other Providers: Baldemar Ramos Other Interventions: Discharge Summary Assessment (RN) Last Done: 04/30/25 11:59 Hospital Stay Data Consultations 04/29/25 13:10 ED Decision to Admit Stat Diagnostic Imagining Performed 04/29/25 11:20 CT head/brain wo con Stat Pending Results Patient Have Any Pending Studies at Discharge: Yes Discharge Instructions Given to Patient (Per Discharging Provider) Ms. Salazar, You were recently hospitalized for weakness and confusion. You were found to have a low sodium that has improved overnight. You were also found to have an E. Coli urinary tract infection. There was concern for possible pneumonia on chest x-ray however you endorsed no cough or shortness of breath. Upon discharge, the antibiotic will cover both the urinary tract infection and the pneumonia. Medications: Your medication list has been reviewed and reconciled upon discharge to ensure accuracy and continuity of care. An updated list of all your medications is included with your hospital discharge paperwork. Please review this list closely, and make note of any changes. Ciprofloxacin has been sent in to your pharmacy. Please take this twice daily for 4 days. Your first dose at home will be this evening, 04/30. This may cause GI upset so you can administer with food. This antibiotic does interact with your simvastatin that you take for your cholesterol. Please hold the simvastatin until you are finished with the ciprofloxacin. You may resume the medication the following day. In general, we recommend you decrease your water intake. We recommend drinking about 4- 6 water bottles (16oz) daily. Your sodium levels were low secondary to over hydrating yourself. Take your medications as instructed; do not skip a dose of your medicines. Make sure all of your doctors know every medicine you are taking (including [id number] medicines, vitamins, and supplements). Call your primary care provider before taking any new medicines (including over- the-counter medicines, vitamins, and supplements), because some of these may interact with your current medications, or may make your symptoms worse. Tell your primary care provider if you cannot afford your medications. Activity: You can do normal everyday activities as your body allows. Take rest breaks if you feel tired. Do not overexert. Stop activity if you have pain, shortness of breath or feel dizzy. Follow-up appointments: Make an appointment with your primary care physician within one week of discharge. A copy of this summary will be sent to them. Every time you see your primary care physician, or any other doctor, bring your medication list, and a list of questions. You have blood cultures pending at the time of discharge, and it takes 5 days to get final results. If they turn positive you will be notified, you can also check in with your PCP or the [facility] portal. However, given your symptoms I do not expect they will be positive. CONTACT YOUR PRIMARY CARE PROVIDER if you experience any of the following: Shortness of breath or difficulty breathing Fevers or chills Feeling tired with normal activity or experiencing dizziness or fainting Difficulty following your treatment plan, or difficulty taking medications CALL 911 OR GO TO THE EMERGENCY DEPARTMENT if you experience any of the following: Severe abdominal pain or nausea/vomiting Severe chest pain, or chest pain that radiates (moves) to your jaw or arm Sudden, severe shortness of breath or difficulty breathing Thank you for allowing us to participate in your care. Supervising Physician Co-Signing Physician Notes The patient was not seen by me. The chart was reviewed. Case discussed with NILSA De León. Agree with assessment and plan Total Time Total Time Spent Total Time Spent (In Minutes): 45 Total Time Includes: Examination of the Patient, Discharge Planning, Medication Reconciliation and Communication With Other Providers Coding Level of Care Code 19132 INP/OBS DISCH >30 MIN Diagnoses Hyponatremia E87.1 Acute UTI N39.0 COVID-19 U07.1 History of subarachnoid hemorrhage Z86.79"
[2025-04-30 12:00] VITALS: PULSE 52
--- NOTE | 2025-04-30 12:36 | Communication Note ---
Date of Service: April 30, 2025 By CMS guidelines, a determination that the admission or continued stay is not medically necessary has been made by a member of the UR committee and fabienne ortega for this hospital stay, therefore a Code 44 will be completed and the Inpatient admission will be changed to outpatient.
--- NOTE | 2025-05-04 05:59 | Electrocardiogram Report ---
Test Reason : Blood Pressure : */* mmHG Vent. Rate : 59 BPM Atrial Rate : 59 BPM P-R Int : 164 ms QRS Dur : 92 ms QT Int : 428 ms P-R-T Axes : 41 2 226 degrees QTcB Int : 423 ms Sinus bradycardia Left ventricular hypertrophy with repolarization abnormality ( R in aVL , Polo product ) Abnormal ECG When compared with ECG of 21-Apr-2025 05:40, No significant change was found Confirmed by Raza Medrano ([id number]) on 05/04/2025 5:58:31 AM Referred By: Confirmed By: Raza Medrano
== END 2025-04-30 12:48 | disposition home or self-care (01) ==
LOC: SUATTDRO → ED 09:54 → 3E 13:43 → INTOOBSV 13:43 → 3E 16:03